=== PATIENT | male | born 1985 | race African-American/Black ===

== ENCOUNTER 2022-01-11 10:30 | Inpatient (IN) | payer MEDICARE, MEDICAID, SELFPAY ==
[2022-01-11] VITALS (7 sets, daily range): BP systolic 121–146; BP diastolic 70–101; PULSE 65–138; RESP 10–22; TEMP 37–38.7; O2SAT 95–97; BMI 26.5
--- NOTE | ~2022-01-11 | XR_ITS ---
EXAMINATION: XR WRIST, LEFT CLINICAL INFORMATION: Pain and swelling COMPARISON: Previous x-ray January 2008 TECHNIQUE: PA, lateral, and oblique views of the left wrist. FINDINGS: The bones and soft tissues are normal. No fracture. Alignment is anatomic with normal joint spaces. No erosions or abnormal soft tissue calcifications. XR/XR wrist LT min 3V IMPRESSION: Normal left wrist.
--- NOTE | ~2022-01-11 | XR_ITS ---
EXAMINATION: XR CHEST CLINICAL INFORMATION: Fever COMPARISON: Previous chest x-ray most recent January 2020 TECHNIQUE: Frontal view of the chest was obtained. FINDINGS: The cardiac and mediastinal contours are stable. There are bilateral infiltrates. There is no pleural effusion or pneumothorax. There are degenerative changes of the shoulders. There is evidence of surgery to the right shoulder. XR/XR chest 1V IMPRESSION: Bilateral infiltrates probably representing pneumonia.
--- NOTE | 2022-01-11 10:40 | ECG_ITS ---
Test Reason : PALPITATIONS Blood Pressure : / mmHG Vent. Rate : 092 BPM Atrial Rate : 092 BPM P-R Int : 138 ms QRS Dur : 094 ms QT Int : 432 ms P-R-T Axes : 066 028 040 degrees QTc Int : 534 ms Normal sinus rhythm Prolonged QT Abnormal ECG When compared with ECG of 03-JAN-2012 22:11, QT has lengthened Referred By: Dawit Bangura Electronically Signed By:ASHA HERNANDEZ
[2022-01-11] MEDS: Haloperidol Lactate 5 MG/ML VIAL 10 MG IM (10:45)
[2022-01-11] MEDS: Midazolam HCl/PF 2 MG/2 ML VIAL 5 MG IM (10:45)
--- NOTE | 2022-01-11 10:52 | ED.GENADULT ---
HPI - General Adult General Chief complaint: General Medical Stated complaint: Psych Madisyn, Ukn Subs Time Seen by Provider: 01/11/22 10:36 Source: EMS and police Mode of arrival: EMS History of Present Illness HPI narrative: This is a 36 years old male with history of substance abuse presented to the emergency department agitated combative, yet arrived the the police and EMS restrained in the stretcher, diaphoretic combative unable to give any history. He was quickly sedated in the ED with the IM midazolam and IM haloperidol for his safety and staff safety. Ambulance picked the patient up in the street where he was agitated Onset (ago): hour(s) (1) Severity: severe Pain Consistency: constant Associated symptoms: diaphoresis Treatments prior to arrival: none Related Data Home Medications Medication Instructions Recorded Confirmed buprenorphine 12 mg-naloxone 3 mg 1 strip sublingual DAILY 01/11/22 01/11/22 sublingual film Allergies Allergy/AdvReac Type Severity Reaction Status Date / Time azithromycin [From ZITHROMAX] Allergy Unknown HIVES Unverified 02/21/20 15:33 amoxicillin [From AUGMENTIN] AdvReac Unknown STOMACH Unverified 02/21/20 15:33 PAIN clavulanic acid AdvReac Unknown STOMACH Unverified 02/21/20 15:33 [From AUGMENTIN] PAIN Review of Systems Review of Systems: Yes Unobtainable due to mental condition and Unobtainable due to mental status PMFSH Past Medical History PMFSH Narrative: substance abuse Social History Social History Use of substances other than those prescribed or required for medical reasons: Unable to respond Advance Directives: No Advance Directives Information Provided: Yes Physical Exam ED Vital Signs: Vital Signs - 24 hr 01/11/22 10:44 01/11/22 11:13 01/11/22 11:28 Temperature 101.6 F H Pulse Rate 124 H 96 Pulse Rate [Monitor] 138 H Respiratory Rate 22 H 20 Blood Pressure 139/86 121/70 Pulse Oximetry 97 96 Oxygen Delivery Method Nasal Cannula Nasal Cannula Oxygen Flow Rate 2 01/11/22 11:56 01/11/22 12:54 01/11/22 12:56 Temperature 98.6 F Pulse Rate 87 77 Pulse Rate [Monitor] Respiratory Rate 14 15 Blood Pressure 128/79 137/83 Pulse Oximetry 96 95 Oxygen Delivery Method Nasal Cannula Nasal Cannula with ETCO2 Room Air Oxygen Flow Rate 2 BMI result Body Mass Index 26.5 Const General: anxious, combative and diaphoretic Nutritional Appearance: well nourished Limitations: altered mental status [facility] Head: Yes normal to inspection General nose exam: Normal external nose present Face and sinus: Yes normal facial exam Mouth: Normal oral and palatal mucosa present Teeth and gingiva: dentition normal Throat: Yes posterior oropharynx normal Neck Neck: Yes normal visual inspection and Yes full ROM Thyroid: Thyroid normal Chest Chest palpation & inspection: normal inspection of the chest Resp Effort & Inspection: normal respiratory effort Auscultation: clear to auscultation bilaterally Cardio Rate: tachycardic GI Inspection: Yes normal to inspection Palpation (GI): Soft to palpation, not firm, nontender and no guarding Auscultation: normal bowel sounds Neuro Other: He is awake combative does not follow commands Course Reevaluation(s) Reevaluation #1: Sleeping confortable,off restrain,toxicology noted (opioid and cocaine),HR down now 88. normotensive,Temp noted but was taken at arrival when he was agitated and diaphoretic Reevaluation #2: awake and alert taking po spoke with Dr Gibson who accept the pt Time: 13:35 Reevaluation #3: better heat rate down to 62 calm and cooperative Medical Decision Making Lab Data Result diagrams: 01/11/22 11:33 01/11/22 11:33 Labs: Lab Results 01/11/22 01/11/22 01/11/22 Range/Units 10:47 11:00 11:16 WBC (4.8-10.8) X10*3/uL RBC (4.60-5.80) X10*6/uL Hgb (14.0-18.0) g/dl Hct (42.0-52.0) % MCV (80.0-98.0) fL MCH (27.0-33.0) pg MCHC (31.0-36.0) g/dl RDW (11.0-16.0) % Plt Count (160-400) X10*3/uL MPV (9.4-12.4) fL Immature Gran % (Auto) (0.0-0.4) % Neut % (Auto) (45-73) % Lymph % (Auto) (20-40) % [place] % (Auto) (2-11) % Eos % (Auto) (0-4) % Baso % (Auto) (0-2) % Lymph # (Auto) (1.2-4.9) X10*3/uL [place] # (Auto) (0.1-1.2) X10*3/uL Eos # (Auto) (0.0-0.4) X10*3/uL Baso # (Auto) (0.0-0.2) X10*3/uL Abs Immat Gran (auto) (0.00-0.03) X10*3/uL Absolute Neuts (auto) (2.0-8.3) x10*3/uL Absolute Nucleated RBC (0.0-0.012) X10*3/uL Nucleated RBC % (auto) (0.0-0.2) /100WBC O2 Saturation 98.0 % ABG pH at Pt Temp 7.33 L (7.35-7.45) ABG pCO2 at Pt Temp 35 (32-45) mmHg ABG pO2 at Pt Temp 136 H (83-108) mmHg ABG HCO3 19 L (22-26) mmol/L ABG Base Excess (Actual) -5.7 mmol/L Sodium (135-145) mmol/L Potassium (3.3-5.1) mmol/L Chloride (96-108) mmol/L Carbon Dioxide (22-29) mmol/L Anion Gap (12-20) BUN (9-16) mg/dL Creatinine (0.5-1.4) mg/dL Estim Creat Clear Calc Estimated GFR Random Glucose (60-115) mg/dL Calcium (8.4-10.2) mg/dL Total Bilirubin (0.0-1.0) mg/dL AST (5-37) U/L ALT (0-40) U/L Alkaline Phosphatase (39-117) U/L Total Creatine Kinase (38-174) U/L Troponin I High Sens (<3.5-35.0) ng/L Total Protein (6.5-8.0) g/dL Albumin (3.5-5.0) g/dL Urine Opiates Screen POSITIVE H (Not Detect) Urine Fentanyl Screen POSITIVE H (Not Detect) Ur Barbiturates Screen Not Detected (Not Detect) Ur Phencyclidine Scrn Not Detected (Not Detect) Ur Amphetamines Screen Not Detected (Not Detect) U Benzodiazepines Scrn Not Detected (Not Detect) Urine Cocaine Screen POSITIVE H (Not Detect) U Marijuana (THC) Screen Not Detected (Not Detect) Ethyl Alcohol Cancelled COVID-19 ([facility]) (Negative) COVID-19 Clin Com 01/11/22 01/11/22 01/11/22 Range/Units 11:33 11:33 11:33 WBC 14.2 H (4.8-10.8) X10*3/uL RBC 4.26 L (4.60-5.80) X10*6/uL Hgb 13.4 L (14.0-18.0) g/dl Hct 36.8 L (42.0-52.0) % MCV 86.4 (80.0-98.0) fL MCH 31.5 (27.0-33.0) pg MCHC 36.4 H (31.0-36.0) g/dl RDW 12.1 (11.0-16.0) % Plt Count 148 L (160-400) X10*3/uL MPV 10.2 (9.4-12.4) fL Immature Gran % (Auto) 0.4 (0.0-0.4) % Neut % (Auto) 81.5 H (45-73) % Lymph % (Auto) 8.7 L (20-40) % [place] % (Auto) 9.2 (2-11) % Eos % (Auto) 0.0 (0-4) % Baso % (Auto) 0.2 (0-2) % Lymph # (Auto) 1.2 (1.2-4.9) X10*3/uL [place] # (Auto) 1.3 H (0.1-1.2) X10*3/uL Eos # (Auto) 0.0 (0.0-0.4) X10*3/uL Baso # (Auto) 0.0 (0.0-0.2) X10*3/uL Abs Immat Gran (auto) 0.05 H (0.00-0.03) X10*3/uL Absolute Neuts (auto) 11.6 H (2.0-8.3) x10*3/uL Absolute Nucleated RBC 0.000 (0.0-0.012) X10*3/uL Nucleated RBC % (auto) 0.0 (0.0-0.2) /100WBC O2 Saturation % ABG pH at Pt Temp (7.35-7.45) ABG pCO2 at Pt Temp (32-45) mmHg ABG pO2 at Pt Temp (83-108) mmHg ABG HCO3 (22-26) mmol/L ABG Base Excess (Actual) mmol/L Sodium 139 (135-145) mmol/L Potassium 3.1 L (3.3-5.1) mmol/L Chloride 105 (96-108) mmol/L Carbon Dioxide 20 L (22-29) mmol/L Anion Gap 17 (12-20) BUN 72 H (9-16) mg/dL Creatinine 2.45 H (0.5-1.4) mg/dL Estim Creat Clear Calc 33.2 Estimated GFR 30 Random Glucose 136 H (60-115) mg/dL Calcium 7.7 L (8.4-10.2) mg/dL Total Bilirubin 1.7 H (0.0-1.0) mg/dL AST 259 H (5-37) U/L ALT 100 H (0-40) U/L Alkaline Phosphatase 65 (39-117) U/L Total Creatine Kinase 28863 H (38-174) U/L Troponin I High Sens 30.5 (<3.5-35.0) ng/L Total Protein 6.0 L (6.5-8.0) g/dL Albumin 3.8 (3.5-5.0) g/dL Urine Opiates Screen (Not Detect) Urine Fentanyl Screen (Not Detect) Ur Barbiturates Screen (Not Detect) Ur Phencyclidine Scrn (Not Detect) Ur Amphetamines Screen (Not Detect) U Benzodiazepines Scrn (Not Detect) Urine Cocaine Screen (Not Detect) U Marijuana (THC) Screen (Not Detect) Ethyl Alcohol < 10 COVID-19 ([facility]) (Negative) COVID-19 Clin Com 01/11/22 Range/Units 14:00 WBC (4.8-10.8) X10*3/uL RBC (4.60-5.80) X10*6/uL Hgb (14.0-18.0) g/dl Hct (42.0-52.0) % MCV (80.0-98.0) fL MCH (27.0-33.0) pg MCHC (31.0-36.0) g/dl RDW (11.0-16.0) % Plt Count (160-400) X10*3/uL MPV (9.4-12.4) fL Immature Gran % (Auto) (0.0-0.4) % Neut % (Auto) (45-73) % Lymph % (Auto) (20-40) % [place] % (Auto) (2-11) % Eos % (Auto) (0-4) % Baso % (Auto) (0-2) % Lymph # (Auto) (1.2-4.9) X10*3/uL [place] # (Auto) (0.1-1.2) X10*3/uL Eos # (Auto) (0.0-0.4) X10*3/uL Baso # (Auto) (0.0-0.2) X10*3/uL Abs Immat Gran (auto) (0.00-0.03) X10*3/uL Absolute Neuts (auto) (2.0-8.3) x10*3/uL Absolute Nucleated RBC (0.0-0.012) X10*3/uL Nucleated RBC % (auto) (0.0-0.2) /100WBC O2 Saturation % ABG pH at Pt Temp (7.35-7.45) ABG pCO2 at Pt Temp (32-45) mmHg ABG pO2 at Pt Temp (83-108) mmHg ABG HCO3 (22-26) mmol/L ABG Base Excess (Actual) mmol/L Sodium (135-145) mmol/L Potassium (3.3-5.1) mmol/L Chloride (96-108) mmol/L Carbon Dioxide (22-29) mmol/L Anion Gap (12-20) BUN (9-16) mg/dL Creatinine (0.5-1.4) mg/dL Estim Creat Clear Calc Estimated GFR Random Glucose (60-115) mg/dL Calcium (8.4-10.2) mg/dL Total Bilirubin (0.0-1.0) mg/dL AST (5-37) U/L ALT (0-40) U/L Alkaline Phosphatase (39-117) U/L Total Creatine Kinase (38-174) U/L Troponin I High Sens (<3.5-35.0) ng/L Total Protein (6.5-8.0) g/dL Albumin (3.5-5.0) g/dL Urine Opiates Screen (Not Detect) Urine Fentanyl Screen (Not Detect) Ur Barbiturates Screen (Not Detect) Ur Phencyclidine Scrn (Not Detect) Ur Amphetamines Screen (Not Detect) U Benzodiazepines Scrn (Not Detect) Urine Cocaine Screen (Not Detect) U Marijuana (THC) Screen (Not Detect) Ethyl Alcohol COVID-19 ([facility]) Negative (Negative) COVID-19 Clin Com See Note Imaging Data Chest x-ray: Radiologist's impression: EXAMINATION: XR CHEST CLINICAL INFORMATION: Fever COMPARISON: Previous chest x-ray most recent January 2020 TECHNIQUE: Frontal view of the chest was obtained. FINDINGS: The cardiac and mediastinal contours are stable. There are bilateral infiltrates. There is no pleural effusion or pneumothorax. There are degenerative changes of the shoulders. There is evidence of surgery to the right shoulder. XR/XR chest 1V IMPRESSION: Bilateral infiltrates probably representing pneumonia. ? ECG Data Pacemaker model: EKG shows a normal sinus rhythm rate 92 no ischemia Critical Care Time Critical Care Time Critical Care Time: Yes Total Critical Care Time: 60 Attestation: Acute renal l failure ,fever ,sedation,rabdomyolisis Discharge Plan Discharge Clinical Impression: Cocaine use disorder, Acute renal failure, Fever, Rhabdomyolysis, Bilateral pulmonary infiltrates on chest x-ray Patient Disposition: Admitted As Inpatient
[2022-01-11] MEDS: 0.9 % Sodium Chloride 1,000 ML 999 ML IVCONT ×3 (11:06→12:48)
[2022-01-11 11:23] LABS: ABG Refer to POC result
[2022-01-11 11:23] LABS: ABG Base Excess -5.7 mmol/L; ABG HCO3 19 mmol/L (22-26); ABG pCO2 35 mmHg (32-45); ABG pH 7.33 (7.35-7.45); ABG pO2 136 mmHg (83-108)
[2022-01-11 11:42] LABS: Amphetamine Screen Urine Not Detected (Not Detect); Barbiturates, Urine Not Detected (Not Detect); Benzodiazepines Screen Urine Not Detected (Not Detect); Cannabinoid Screen Urine Not Detected (Not Detect); Cocaine Screen Urine POSITIVE (Not Detect); Fentanyl, urine POSITIVE (Not Detect); Opiate Screen Urine POSITIVE (Not Detect); Phencyclidine Screen Urine Not Detected (Not Detect)
[2022-01-11 11:42] LABS: Basophils Percent Auto 0.2 % (0-2); Hematocrit 36.8 % (42.0-52.0); Hemoglobin 13.4 g/dl (14.0-18.0); Imm Gran Abs Auto 0.05 X10*3/uL (0.00-0.03); Imm Gran Pct Auto 0.4 % (0.0-0.4); Lymphocytes Absolute Auto 1.2 X10*3/uL (1.2-4.9); Lymphocytes Percent Auto 8.7 % (20-40); Mean Corpuscular HGB Conc 36.4 g/dl (31.0-36.0); Mean Corpuscular Hemoglobin 31.5 pg (27.0-33.0); Mean Corpuscular Volume 86.4 fL (80.0-98.0); Mean Platelet Volume 10.2 fL (9.4-12.4); Monocytes Absolute Auto 1.3 X10*3/uL (0.1-1.2); Monocytes Percent Auto 9.2 % (2-11); Neutrophils Absolute Auto 11.6 x10*3/uL (2.0-8.3); Neutrophils Percent Auto 81.5 % (45-73); Platelet Count 148 X10*3/uL (160-400); Red Blood Count 4.26 X10*6/uL (4.60-5.80); Red Cell Distribution Width 12.1 % (11.0-16.0); White Blood Count 14.2 X10*3/uL (4.8-10.8)
[2022-01-11 11:56] LABS: Alanine Aminotransferase 100 U/L (0-40); Albumin Level 3.8 g/dL (3.5-5.0); Alkaline Phosphatase 65 U/L (39-117); Anion Gap 17 (12-20); Aspartate Amino Transferase 259 U/L (5-37); Bilirubin Total 1.7 mg/dL (0.0-1.0); Blood Urea Nitrogen 72 mg/dL (9-16); Calcium 7.7 mg/dL (8.4-10.2); Carbon Dioxide 20 mmol/L (22-29); Chloride 105 mmol/L (96-108); Creatinine Clr Calc Pharmacy 33.2; Estimated Glomerular Filt Rate 30; Ethanol < 10 mg/dL; Glucose Random 136 mg/dL (60-115); Potassium 3.1 mmol/L (3.3-5.1); Sodium 139 mmol/L (135-145)
[2022-01-11 11:59] LABS: Troponin-I High Sensitivity 30.5 ng/L (<3.5-35.0)
[2022-01-11] MEDS: 0.9 % Sodium Chloride 1,000 ML 300 ML IVCONT (12:49)
--- NOTE | 2022-01-11 13:52 | PHA.MEDREC ---
Pharmacy Consult ? Medication Reconciliation Pharmacy has completed the medication reconciliation. Pt unarousable, only had one recent medication claim for suboxone in claim history filled late December.
--- NOTE | 2022-01-11 14:15 | PM.IMHP ---
History of Present Illness Date of Service: 01/11/22 Chief Complaint: found wandering my police This is a 36-year-old male with a past medical history of polysubstance injection drug use who was found wandering the streets by a police and was brought to [facility]. Currently the patient is slightly sedated and hence unable to provide a meaningful history. History is obtained from the ED physician. Apparently the patient arrived to the ED extremely agitated and combative. He had to be chemically and physically restrained. His workup has seen showed rhabdomyolysis with acute kidney injury. His chest x-ray shows possible pneumonia. He has been given multiple doses of sedatives as well as multiple rounds of intravenous fluid boluses. He is now more calm but still very sleepy. He knows he is in the hospital otherwise does not answer too many questions. Review of Systems Review of Systems: Unable to review systems due to patient's mental status [facility] Cognitive capacity: PMH/PSH/FH/SH unable to obtain due to mental status Pertinent family history: unable to obtain due to mental status Social History Use of substances other than those prescribed or required for medical reasons: Unable to respond Advance Directives: No Advance Directives Information Provided: Yes Meds Allergies Allergy/AdvReac Type Severity Reaction Status Date / Time azithromycin [From ZITHROMAX] Allergy Unknown HIVES Unverified 02/21/20 15:33 amoxicillin [From AUGMENTIN] AdvReac Unknown STOMACH Unverified 02/21/20 15:33 PAIN clavulanic acid AdvReac Unknown STOMACH Unverified 02/21/20 15:33 [From AUGMENTIN] PAIN Active Medications: Current Medications Acetaminophen (Acetaminophen 325 Mg Tablet) 650 mg PO Q6H PRN PRN Reason: Pain, Mild (Pain Scale 1-3) Heparin Sodium (Porcine) (Heparin Sodium,Porcine 5,000 Unit/Ml Vial) 5,000 unit SUBCUT Q12H [facility] Sodium Chloride (Ns) 1,000 mls @ 300 mls/hr IVCONT .Q3H20M JD Last Admin: 01/11/22 12:49 Dose: 300 mls/hr Ondansetron HCl (Ondansetron Hcl 4 Mg/2 Ml Vial) 4 mg IVPUSH Q8H PRN PRN Reason: Nausea and Vomiting Sodium Chloride (0.9 % Sodium Chloride Flush 3 Ml Syringe) 3 ml IVFLUSH QSHIFT [facility] Home Medications Medication Instructions Recorded Confirmed Last Taken Type buprenorphine 12 mg-naloxone 3 mg 1 strip sublingual DAILY 01/11/22 01/11/22 Unknown History sublingual film Physical Exam Vital Signs and Narrative: Vital Signs: Last Vital Signs Temp 98.6 F 01/11/22 12:56 Pulse 77 01/11/22 12:54 Resp 15 01/11/22 12:54 BP 137/83 01/11/22 12:54 Pulse Ox 95 01/11/22 12:54 O2 Del Method 01/11/22 12:54 O2 Flow Rate 2 01/11/22 11:56 Oxygen Flow Rate 2 01/11/22 10:44 BMI result Body Mass Index 26.5 Const: Other: Constitutional - Unkemp; calm, keeps eyes closed but does open to verbal stimuli Eyes - PERRLA, EOMI Cardiovascular - S1S2, RRR, No edema Respiratory - Diffuse rhonchi bilaterally Gastrointestinal - NT / ND; +BS; No rebound or guarding - No CVA tenderness Extremities - no calf tenderness bilaterally, no swelling Musculoskeletal - Normal inspection, normal ROM Skin - Warm/Dry Neurological - Oriented to self and time, otherwise disoriented; no focal exam; following simple commands but quickly falls asleep Results Labs CBC and Chem 7: 01/11/22 11:33 01/11/22 11:33 Labs: Laboratory Results - last 24 hr 01/11/22 01/11/22 01/11/22 10:47 11:00 11:16 MCV MCH MCHC RDW Plt Count MPV Immature Gran % (Auto) Neut % (Auto) Lymph % (Auto) [place] % (Auto) Eos % (Auto) Baso % (Auto) Lymph # (Auto) [place] # (Auto) Eos # (Auto) Baso # (Auto) Abs Immat Gran (auto) Absolute Neuts (auto) Absolute Nucleated RBC Nucleated RBC % (auto) O2 Saturation 98.0 ABG pH at Pt Temp 7.33 L ABG pCO2 at Pt Temp 35 ABG pO2 at Pt Temp 136 H ABG HCO3 19 L ABG Base Excess (Actual) -5.7 Anion Gap Estim Creat Clear Calc Estimated GFR Random Glucose Calcium Total Bilirubin AST ALT Alkaline Phosphatase Total Creatine Kinase Total Protein Albumin Urine Opiates Screen POSITIVE H Urine Fentanyl Screen POSITIVE H Ur Barbiturates Screen Not Detected Ur Phencyclidine Scrn Not Detected Ur Amphetamines Screen Not Detected U Benzodiazepines Scrn Not Detected Urine Cocaine Screen POSITIVE H U Marijuana (THC) Screen Not Detected Ethyl Alcohol Cancelled 01/11/22 01/11/22 11:33 11:33 MCV 86.4 MCH 31.5 MCHC 36.4 H RDW 12.1 Plt Count 148 L MPV 10.2 Immature Gran % (Auto) 0.4 Neut % (Auto) 81.5 H Lymph % (Auto) 8.7 L [place] % (Auto) 9.2 Eos % (Auto) 0.0 Baso % (Auto) 0.2 Lymph # (Auto) 1.2 [place] # (Auto) 1.3 H Eos # (Auto) 0.0 Baso # (Auto) 0.0 Abs Immat Gran (auto) 0.05 H Absolute Neuts (auto) 11.6 H Absolute Nucleated RBC 0.000 Nucleated RBC % (auto) 0.0 O2 Saturation ABG pH at Pt Temp ABG pCO2 at Pt Temp ABG pO2 at Pt Temp ABG HCO3 ABG Base Excess (Actual) Anion Gap 17 Estim Creat Clear Calc 33.2 Estimated GFR 30 Random Glucose 136 H Calcium 7.7 L Total Bilirubin 1.7 H AST 259 H ALT 100 H Alkaline Phosphatase 65 Total Creatine Kinase 45057 H Total Protein 6.0 L Albumin 3.8 Urine Opiates Screen Urine Fentanyl Screen Ur Barbiturates Screen Ur Phencyclidine Scrn Ur Amphetamines Screen U Benzodiazepines Scrn Urine Cocaine Screen U Marijuana (THC) Screen Ethyl Alcohol < 10 Imaging Radiologist's Impressions: Impressions Chest X-Ray 01/11/22 12:35 IMPRESSION: Bilateral infiltrates probably representing pneumonia. Assessment and Plan (1) Acute renal failure: Status: Acute (2) Fever: Status: Acute (3) Rhabdomyolysis: Status: Acute Plan This is a 36 year old M who was found wandering the streets and brought to [facility] ED for evaluation. His work up reveals BEBO with rhabdo. He was febrile upon arrival as well. He will be admitted for further work up. 1. BEBO due to rhabdomyolysis aggressive fluid resuscitation i/o repeat BMP + CPK tomorrow 2. Toxic/Metabolic encephalopathy combination of #1 + opiates / cocaine improving continue to monitor 3. Pneumonia rocehpin given in the ED, will continue given history of IVDU -- will need to cover for MRSA -- will add vancomcyin, pharmacy to help with dosing given BEBO follow up cultures 4. Abnormal LFTs possibly related to infection, although [facility] records indicated he has hep C trend Presumed Full Code DVT pptx, subcut heparin In light of the patients significant rhabdo + bebo + suspected pneumonia + encephalopathy which will require aggressive hydration, IV antibiotics, frequent neurochecks -- I anticipate a medically necessary inpatient hospitalization which is likely to span at least 2 midnights. This cannto be completed in a less acute setting. Quality Stroke Does the patient have a stroke diagnosis?: No VTE Prior VTE?: No VTE Risk Level:: Medical - moderate - high VTE Device Contraindication: Treatment Not Tolerated VTE Drug Contraindication: N/A - Med Ordered
[2022-01-11 14:21] LABS: COVID-19 Test Negative (Negative); IDNOW Serial# 9DB6401D
--- NOTE | 2022-01-11 14:23 | PHA.PROG ---
Admission Date/Time: January 11, 2022 14:08 Indication: BACTEREMIA Weight in k.039 kg Adjusted body weight in K.356 [place] body weight in Kg: Obesity Dosing Indication % IBW: Serum Creatinine - Last 168 Hours 01/11/22 11:33 Creatinine 2.45 H Estimated CrCl and GFR - Last 168 Hours 01/11/22 11:33 Estim Creat Clear Calc 33.2 Estimated GFR 30 Vancomycin Loading Dose: 1500MG Current Vancomycin Dosing Regimen: 1000MG Q24H Vancomycin Monitoring using AUC goal of 400 - 600 range with trough as surrogate marker: 515;16.3 Date and Time for next Vancomycin Level to be drawn: RANDOM 01/13 @1300 Pharmacist Comments on Vancomycin Plan: 22MG/KG LOADING DOSE RANDOM AFTER 2 DOSES RENAL FUNCTION SHOULD IMPROVE, PATIENT IN BEBO CONSIDER INCREASING FREQUENCY SCR NORMALIZES RANDOM FOR SAFETY Vancomycin dosing will take advantage of [employer] as a clinical decision support tool that uses Bayesian modeling to calculate individual patient's pharmacokinetic parameters and forecast the patient's drug concentration time course with the target goal AUC 24 range of 400 - 600 mg/L/hr.
[2022-01-11] MEDS: cefTRIAXone sodium 1 GM in 0.9 % Sodium Chloride 50 ML IV (15:25)
[2022-01-11] MEDS: Heparin Sodium,Porcine 5,000 UNIT/ML VIAL 5000 UNIT SUBCUT (15:30)
[2022-01-11] MEDS: Lactated Ringers 1,000 ML 150 ML IVCONT (17:32)
[2022-01-11] MEDS: vancomycin HCL 1,500 MG in 0.9 % Sodium Chloride 500 ML 333.33 MG IV (17:32)
--- NOTE | 2022-01-11 20:59 | MHC.CM.PN ---
CM attempted to meet with admitted patient with bed assignment pending, but pt sleeping. Pt had been chemically/physically restrained. Pt will need to be interviewed for d/c planning when awake and cooperative. CM to follow for d/c needs.
[2022-01-11 21:53] LABS: Anion Gap 12 (12-20); Blood Urea Nitrogen 48 mg/dL (9-16); Calcium 7.3 mg/dL (8.4-10.2); Carbon Dioxide 22 mmol/L (22-29); Chloride 111 mmol/L (96-108); Creatinine Clr Calc Pharmacy 66.1; Estimated Glomerular Filt Rate > 60; Glucose Random 108 mg/dL (60-115); Sodium 141 mmol/L (135-145)
[2022-01-12] VITALS (8 sets, daily range): BP systolic 100–134; BP diastolic 56–73; PULSE 49–82; RESP 13–18; TEMP 36.4–37.1; O2SAT 93–99; BMI 26.5
[2022-01-12 00:12] LABS: Appearance Urine CLEAR; Color Urine YELLOW; Glucose Urine UA NEG (NEG); Leukocyte Esterase Urine NEG (NEG); Nitrite Urine NEG (NEG); Specific Gravity - Urine >= 1.030 (1.005-1.025); UACC Culture Trigger NO; Urine Blood 3+ (NEG); Urine Ketones 5 MG/DL (NEG); Urine Protein 2+ MG/DL (NEG-TRACE)
[2022-01-12 00:17] LABS: Mucus Urine 1+ /LPF; RBC Urine 0-2 /HPF (0); Squamous Epithelial Cell Urine TRACE /LPF
[2022-01-12 00:18] LABS: Amorphous Sediment Urine 2+ /LPF; Granular Casts Urine 0-2 /LPF; Hyaline Casts Urine 0-2 /LPF
[2022-01-12] MEDS: 0.9 % Sodium Chloride Flush 3 ML SYRINGE IVFLUSH (03:24)
[2022-01-12] MEDS: Heparin Sodium,Porcine 5,000 UNIT/ML VIAL 5000 UNIT SUBCUT ×2 (03:26→14:43)
[2022-01-12] MEDS: Lactated Ringers 1,000 ML 150 ML IVCONT ×3 (04:18→17:31)
[2022-01-12 05:00] LABS: Hematocrit 36.1 % (42.0-52.0); Hemoglobin 12.6 g/dl (14.0-18.0); Mean Corpuscular HGB Conc 34.9 g/dl (31.0-36.0); Mean Corpuscular Hemoglobin 31.3 pg (27.0-33.0); Mean Corpuscular Volume 89.8 fL (80.0-98.0); Mean Platelet Volume 10.2 fL (9.4-12.4); Platelet Count 141 X10*3/uL (160-400); Red Blood Count 4.02 X10*6/uL (4.60-5.80); Red Cell Distribution Width 12.5 % (11.0-16.0); White Blood Count 11.5 X10*3/uL (4.8-10.8)
[2022-01-12 05:15] LABS: Anion Gap 13 (12-20); Blood Urea Nitrogen 41 mg/dL (9-16); Calcium 7.7 mg/dL (8.4-10.2); Carbon Dioxide 21 mmol/L (22-29); Chloride 113 mmol/L (96-108); Creatinine Clr Calc Pharmacy 91.4; Estimated Glomerular Filt Rate > 60; Glucose Random 87 mg/dL (60-115); Potassium 3.9 mmol/L (3.3-5.1); Sodium 143 mmol/L (135-145)
--- NOTE | 2022-01-12 07:39 | HE.PHANOTE ---
Vancomycin Dosing Addendum Patient was in BEBO yesterday. Scr is significantly down at 0.89 from 2.45. Level to be drawn on 01/13 @1300. Keep current regimen of 1000mg Q24H. Predicted AUC 478 mg/L/hr.
--- NOTE | 2022-01-12 08:22 | PC.NURSE ---
Pt sleeping at this time. No signs of distress noted. Fluids running as per MAR orders. Call bui within reach, will continue to monitor.
[2022-01-12 09:09] LABS: Procalcitonin 3.03 ng/mL
--- NOTE | 2022-01-12 09:31 | ED.GENADULT ---
HPI - General Adult General Chief complaint: General Medical Stated complaint: Psych Madisyn, Ukn Subs Time Seen by Provider: 01/11/22 10:36 Source: EMS and police Mode of arrival: EMS History of Present Illness Associated symptoms: diaphoresis Treatments prior to arrival: none Related Data Home Medications Medication Instructions Recorded Confirmed buprenorphine 12 mg-naloxone 3 mg 1 strip sublingual DAILY 01/11/22 01/11/22 sublingual film Allergies Allergy/AdvReac Type Severity Reaction Status Date / Time azithromycin [From ZITHROMAX] Allergy Unknown HIVES Unverified 02/21/20 15:33 amoxicillin [From AUGMENTIN] AdvReac Unknown STOMACH Unverified 02/21/20 15:33 PAIN clavulanic acid AdvReac Unknown STOMACH Unverified 02/21/20 15:33 [From AUGMENTIN] PAIN PMFSH Social History Social History Use of substances other than those prescribed or required for medical reasons: Unable to respond Advance Directives: No Advance Directives Information Provided: Yes Physical Exam ED Vital Signs: Vital Signs - 24 hr 01/11/22 10:44 01/11/22 11:13 01/11/22 11:28 Temperature 101.6 F H Pulse Rate 124 H 96 Pulse Rate [Monitor] 138 H Respiratory Rate 22 H 20 Blood Pressure 139/86 121/70 Pulse Oximetry 97 96 Oxygen Delivery Method Nasal Cannula Nasal Cannula Oxygen Flow Rate 2 01/11/22 11:56 01/11/22 12:54 01/11/22 12:56 Temperature 98.6 F Pulse Rate 87 77 Pulse Rate [Monitor] Respiratory Rate 14 15 Blood Pressure 128/79 137/83 Pulse Oximetry 96 95 Oxygen Delivery Method Nasal Cannula Nasal Cannula with ETCO2 Room Air Oxygen Flow Rate 2 BMI result Body Mass Index 26.5 Medical Decision Making Lab Data Result diagrams: 01/12/22 04:18 01/12/22 04:18 Labs: Lab Results 01/11/22 01/11/22 01/11/22 Range/Units 10:47 11:00 11:16 WBC (4.8-10.8) X10*3/uL RBC (4.60-5.80) X10*6/uL Hgb (14.0-18.0) g/dl Hct (42.0-52.0) % MCV (80.0-98.0) fL MCH (27.0-33.0) pg MCHC (31.0-36.0) g/dl RDW (11.0-16.0) % Plt Count (160-400) X10*3/uL MPV (9.4-12.4) fL Immature Gran % (Auto) (0.0-0.4) % Neut % (Auto) (45-73) % Lymph % (Auto) (20-40) % [place] % (Auto) (2-11) % Eos % (Auto) (0-4) % Baso % (Auto) (0-2) % Lymph # (Auto) (1.2-4.9) X10*3/uL [place] # (Auto) (0.1-1.2) X10*3/uL Eos # (Auto) (0.0-0.4) X10*3/uL Baso # (Auto) (0.0-0.2) X10*3/uL Abs Immat Gran (auto) (0.00-0.03) X10*3/uL Absolute Neuts (auto) (2.0-8.3) x10*3/uL Absolute Nucleated RBC (0.0-0.012) X10*3/uL Nucleated RBC % (auto) (0.0-0.2) /100WBC O2 Saturation 98.0 % ABG pH at Pt Temp 7.33 L (7.35-7.45) ABG pCO2 at Pt Temp 35 (32-45) mmHg ABG pO2 at Pt Temp 136 H (83-108) mmHg ABG HCO3 19 L (22-26) mmol/L ABG Base Excess (Actual) -5.7 mmol/L Sodium (135-145) mmol/L Potassium (3.3-5.1) mmol/L Chloride (96-108) mmol/L Carbon Dioxide (22-29) mmol/L Anion Gap (12-20) BUN (9-16) mg/dL Creatinine (0.5-1.4) mg/dL Estim Creat Clear Calc Estimated GFR Random Glucose (60-115) mg/dL Calcium (8.4-10.2) mg/dL Total Bilirubin (0.0-1.0) mg/dL AST (5-37) U/L ALT (0-40) U/L Alkaline Phosphatase (39-117) U/L Total Creatine Kinase (38-174) U/L Troponin I High Sens (<3.5-35.0) ng/L Total Protein (6.5-8.0) g/dL Albumin (3.5-5.0) g/dL Urine Opiates Screen POSITIVE H (Not Detect) Urine Fentanyl Screen POSITIVE H (Not Detect) Ur Barbiturates Screen Not Detected (Not Detect) Ur Phencyclidine Scrn Not Detected (Not Detect) Ur Amphetamines Screen Not Detected (Not Detect) U Benzodiazepines Scrn Not Detected (Not Detect) Urine Cocaine Screen POSITIVE H (Not Detect) U Marijuana (THC) Screen Not Detected (Not Detect) Ethyl Alcohol Cancelled COVID-19 ([facility]) (Negative) COVID-19 Clin Com 01/11/22 01/11/22 01/11/22 Range/Units 11:33 11:33 11:33 WBC 14.2 H (4.8-10.8) X10*3/uL RBC 4.26 L (4.60-5.80) X10*6/uL Hgb 13.4 L (14.0-18.0) g/dl Hct 36.8 L (42.0-52.0) % MCV 86.4 (80.0-98.0) fL MCH 31.5 (27.0-33.0) pg MCHC 36.4 H (31.0-36.0) g/dl RDW 12.1 (11.0-16.0) % Plt Count 148 L (160-400) X10*3/uL MPV 10.2 (9.4-12.4) fL Immature Gran % (Auto) 0.4 (0.0-0.4) % Neut % (Auto) 81.5 H (45-73) % Lymph % (Auto) 8.7 L (20-40) % [place] % (Auto) 9.2 (2-11) % Eos % (Auto) 0.0 (0-4) % Baso % (Auto) 0.2 (0-2) % Lymph # (Auto) 1.2 (1.2-4.9) X10*3/uL [place] # (Auto) 1.3 H (0.1-1.2) X10*3/uL Eos # (Auto) 0.0 (0.0-0.4) X10*3/uL Baso # (Auto) 0.0 (0.0-0.2) X10*3/uL Abs Immat Gran (auto) 0.05 H (0.00-0.03) X10*3/uL Absolute Neuts (auto) 11.6 H (2.0-8.3) x10*3/uL Absolute Nucleated RBC 0.000 (0.0-0.012) X10*3/uL Nucleated RBC % (auto) 0.0 (0.0-0.2) /100WBC O2 Saturation % ABG pH at Pt Temp (7.35-7.45) ABG pCO2 at Pt Temp (32-45) mmHg ABG pO2 at Pt Temp (83-108) mmHg ABG HCO3 (22-26) mmol/L ABG Base Excess (Actual) mmol/L Sodium 139 (135-145) mmol/L Potassium 3.1 L (3.3-5.1) mmol/L Chloride 105 (96-108) mmol/L Carbon Dioxide 20 L (22-29) mmol/L Anion Gap 17 (12-20) BUN 72 H (9-16) mg/dL Creatinine 2.45 H (0.5-1.4) mg/dL Estim Creat Clear Calc 33.2 Estimated GFR 30 Random Glucose 136 H (60-115) mg/dL Calcium 7.7 L (8.4-10.2) mg/dL Total Bilirubin 1.7 H (0.0-1.0) mg/dL AST 259 H (5-37) U/L ALT 100 H (0-40) U/L Alkaline Phosphatase 65 (39-117) U/L Total Creatine Kinase 75838 H (38-174) U/L Troponin I High Sens 30.5 (<3.5-35.0) ng/L Total Protein 6.0 L (6.5-8.0) g/dL Albumin 3.8 (3.5-5.0) g/dL Urine Opiates Screen (Not Detect) Urine Fentanyl Screen (Not Detect) Ur Barbiturates Screen (Not Detect) Ur Phencyclidine Scrn (Not Detect) Ur Amphetamines Screen (Not Detect) U Benzodiazepines Scrn (Not Detect) Urine Cocaine Screen (Not Detect) U Marijuana (THC) Screen (Not Detect) Ethyl Alcohol < 10 COVID-19 ([facility]) (Negative) COVID-19 Clin Com 01/11/22 Range/Units 14:00 WBC (4.8-10.8) X10*3/uL RBC (4.60-5.80) X10*6/uL Hgb (14.0-18.0) g/dl Hct (42.0-52.0) % MCV (80.0-98.0) fL MCH (27.0-33.0) pg MCHC (31.0-36.0) g/dl RDW (11.0-16.0) % Plt Count (160-400) X10*3/uL MPV (9.4-12.4) fL Immature Gran % (Auto) (0.0-0.4) % Neut % (Auto) (45-73) % Lymph % (Auto) (20-40) % [place] % (Auto) (2-11) % Eos % (Auto) (0-4) % Baso % (Auto) (0-2) % Lymph # (Auto) (1.2-4.9) X10*3/uL [place] # (Auto) (0.1-1.2) X10*3/uL Eos # (Auto) (0.0-0.4) X10*3/uL Baso # (Auto) (0.0-0.2) X10*3/uL Abs Immat Gran (auto) (0.00-0.03) X10*3/uL Absolute Neuts (auto) (2.0-8.3) x10*3/uL Absolute Nucleated RBC (0.0-0.012) X10*3/uL Nucleated RBC % (auto) (0.0-0.2) /100WBC O2 Saturation % ABG pH at Pt Temp (7.35-7.45) ABG pCO2 at Pt Temp (32-45) mmHg ABG pO2 at Pt Temp (83-108) mmHg ABG HCO3 (22-26) mmol/L ABG Base Excess (Actual) mmol/L Sodium (135-145) mmol/L Potassium (3.3-5.1) mmol/L Chloride (96-108) mmol/L Carbon Dioxide (22-29) mmol/L Anion Gap (12-20) BUN (9-16) mg/dL Creatinine (0.5-1.4) mg/dL Estim Creat Clear Calc Estimated GFR Random Glucose (60-115) mg/dL Calcium (8.4-10.2) mg/dL Total Bilirubin (0.0-1.0) mg/dL AST (5-37) U/L ALT (0-40) U/L Alkaline Phosphatase (39-117) U/L Total Creatine Kinase (38-174) U/L Troponin I High Sens (<3.5-35.0) ng/L Total Protein (6.5-8.0) g/dL Albumin (3.5-5.0) g/dL Urine Opiates Screen (Not Detect) Urine Fentanyl Screen (Not Detect) Ur Barbiturates Screen (Not Detect) Ur Phencyclidine Scrn (Not Detect) Ur Amphetamines Screen (Not Detect) U Benzodiazepines Scrn (Not Detect) Urine Cocaine Screen (Not Detect) U Marijuana (THC) Screen (Not Detect) Ethyl Alcohol COVID-19 ([facility]) Negative (Negative) COVID-19 Clin Com See Note Discharge Plan Discharge Clinical Impression: Cocaine use disorder, Acute renal failure, Fever, Rhabdomyolysis, Bilateral pulmonary infiltrates on chest x-ray Patient Disposition: Admitted As Inpatient
--- NOTE | 2022-01-12 09:39 | PC.NURSE ---
patient moved from ED Bed 10 to ED Overflow Bed 3. Continuous monitor. Sinus bradycardia 40s-50s at this time. Respirations even/unlabored. Alert/oriented/responsive. Was able to move himself from ED stretcher to hospital bed with minimal difficulty. LR continues at 150 ml/hour.
--- NOTE | 2022-01-12 09:44 | MHC.RECOVRN ---
Briefly met with pt to discuss Suboxone. Pt sleeping, arouses to voice. Per [facility], pt received 28 day supply of Suboxone 12/3 mg films. Pt reports last took on 01/11 and takes it daily. Pt requesting dose now. Rena Mayo APRN, notified.
--- NOTE | 2022-01-12 10:02 | MHC.CM.PN ---
PATIENT IS FULLY INDEPENDENT HIS MARGARITA IS BEDSIDE AND PATIENT GIVES PERMISSION FOR THIS [employer] DRIVER HELPER TO SPEAK WITH HER CONTACT NUMBER FOR MARGARITA IS [phone] HE OCCASIONALLY RELIES ON A CANE NO VNA SERVICES HE IS PRESCRIBED SUBOX[employer] BUT THIS [employer] DRIVER HELPER DID NOT GATHER WHERE FROM. PCP IS REPORTED TO BE DR MUNGUIA IN [place] ([facility]) IMM 01/12 IN CHART NO HCP ON FILE BUT PATIENT WILL CONSIDER ADDING ONE WHILE HERE.
[2022-01-12] MEDS: Buprenorphine/Naloxone 12/3 mg FILM 1 FILM SUBLINGUAL ×2 (10:04→11:25)
--- NOTE | 2022-01-12 11:31 | PC.NURSE ---
Please contact Brianna Lake at [phone]. Requested to designate Brianna as [facility]'s primary salesperson men's hats. Registration staff aware.
--- NOTE | 2022-01-12 12:11 | PC.NURSE ---
report obtained from logan antonio currently sleeping, pastry cook apprentice intact-sinus/sinus bert, ivf running per order, call bui within reach, will continue to monitor.
--- NOTE | 2022-01-12 12:38 | HO.WOUNDCONS ---
History of Present Illness Data of Consult Service Date: 01/12/22 Requesting physician: Keagan Ceballos Primary Care Provider: Unknown Physician HPI Reason for consult: foot wound [id number]: 36-year-old male presented to [facility] with EMS while combative. Had tachycardia and dehydration, treated for these conditions and no resting comfortably in the bed. Hospital admission is proposed for bilateral pulmonary infiltrates. He is assessed in ED overflow, room 3. I do not see any documented evaluation of the feet but we are asked to assess foot wound from wound care perspective. The patient denies history of diabetes. Unsure if he has had a thermal in counter such as bare feet to the hot pavement. No chronic pain reported in the feet. Footwear history also not entirely clear. Patient answers questions then falls back to sleep. Review of Systems Review of Systems: No shortness of breath is reported. Yes Unobtainable due to mental status PMFSH Social History Use of substances other than those prescribed or required for medical reasons: Unable to respond Advance Directives: No Advance Directives Information Provided: Yes service: No Current occupational status: unemployed Meds Allergies Allergy/AdvReac Type Severity Reaction Status Date / Time azithromycin [From ZITHROMAX] Allergy Unknown HIVES Verified 01/12/22 09:43 amoxicillin [From AUGMENTIN] AdvReac Unknown STOMACH Verified 01/12/22 09:43 PAIN clavulanic acid AdvReac Unknown STOMACH Verified 01/12/22 09:43 [From AUGMENTIN] PAIN Active Medications: Current Medications Acetaminophen (Acetaminophen 325 Mg Tablet) 650 mg PO Q6H PRN PRN Reason: Pain, Mild (Pain Scale 1-3) Buprenorphine/Naloxone (Buprenorphine/Naloxone 12/3 Mg Film) 1 film SUBLINGUAL DAILY JD Last Admin: 01/12/22 10:04 Dose: 1 film Heparin Sodium (Porcine) (Heparin Sodium,Porcine 5,000 Unit/Ml Vial) 5,000 unit SUBCUT Q12H JD Last Admin: 01/12/22 03:26 Dose: 5,000 unit Lactated Ringer's (Lr) 1,000 mls @ 150 mls/hr IVCONT .Q6H40M JD Last Admin: 01/12/22 11:26 Dose: 150 mls/hr Vancomycin HCl 1,000 mg/ (Sodium Chloride) 270 mls @ 270 mls/hr IV Q24H [facility] Ceftriaxone Sodium 1 gm/ (Sodium Chloride) 50 mls @ 100 mls/hr IV Q24H [facility] Ondansetron HCl (Ondansetron Hcl 4 Mg/2 Ml Vial) 4 mg IVPUSH Q8H PRN PRN Reason: Nausea and Vomiting Pharmacy Consult (Consult Rx Vancomycin Dosing) 1 each MISCELLANE DAILY PRN PRN Reason: Consult order Sodium Chloride (0.9 % Sodium Chloride Flush 3 Ml Syringe) 3 ml IVFLUSH QSHIFT [facility] Last Admin: 01/12/22 07:50 Dose: Not Given Home Medications Medication Instructions Recorded Confirmed Last Taken Type buprenorphine 12 mg-naloxone 3 mg 1 strip sublingual DAILY 01/11/22 01/11/22 Unknown History sublingual film Physical Exam Vital Signs and Narrative: Vital Signs: Last Vital Signs Temp 97.5 F 01/12/22 10:22 Pulse 49 L 01/12/22 10:22 Resp 16 01/12/22 10:22 BP 117/72 01/12/22 10:22 Pulse Ox 99 01/12/22 10:22 O2 Del Method 01/12/22 10:22 O2 Flow Rate 2 01/12/22 10:22 Oxygen Flow Rate 2 01/11/22 10:44 BMI result Body Mass Index 26.5 Sleeping but awakens briefly to answer questions. No edema in the bilateral lower extremities. Dorsalis pedis and posterior tibial pulses are bounding in both feet. There are no open wounds of the feet. There is no ulceration to suggest chronic infection. There is mild tenderness over the right calcaneus. Scant change in dermis to suggest callus is seen without fluctuance or blistering. Left calcaneus shows darkened dermis/callus with scant fluctuance, nontender. Similar change on the plantar aspect of the great toe is identified. No redness or bullous type appearance to suggest normal zarco. Chronic friction shear suspected his primary source. No evidence of infection by way of redness, streaking, warmth or odor or drainage. Results Labs CBC and Chem 7: 01/12/22 04:18 01/12/22 04:18 Labs: Laboratory Results - last 24 hr 01/11/22 01/11/22 01/12/22 14:00 21:27 00:04 MCV MCH MCHC RDW Plt Count MPV Absolute Nucleated RBC Nucleated RBC % (auto) Anion Gap 12 Estim Creat Clear Calc 66.1 Estimated GFR > 60 Random Glucose 108 Calcium 7.3 L Total Creatine Kinase Procalcitonin Urine Color YELLOW Urine Appearance CLEAR Urine pH 6.0 Ur Specific [place] >= 1.030 H Urine Protein 2+ H Urine Glucose (UA) NEG Urine Ketones 5 Urine Blood 3+ H Urine Nitrite NEG Ur Leukocyte Esterase NEG Urine RBC 0-2 Urine WBC 1-4 Ur Squamous Epith Cells TRACE Amorphous Sediment 2+ Urine Bacteria NONE Hyaline Casts 0-2 Granular Casts 0-2 Urine Mucus 1+ COVID-19 ([facility]) Negative COVID-19 Clin Com See Note 01/12/22 01/12/22 01/12/22 04:18 04:18 04:18 MCV 89.8 MCH 31.3 MCHC 34.9 RDW 12.5 Plt Count 141 L MPV 10.2 Absolute Nucleated RBC 0.000 Nucleated RBC % (auto) 0.0 Anion Gap 13 Estim Creat Clear Calc 91.4 Estimated GFR > 60 Random Glucose 87 Calcium 7.7 L Total Creatine Kinase 78595 H Procalcitonin 3.03 Urine Color Urine Appearance Urine pH Ur Specific [place] Urine Protein Urine Glucose (UA) Urine Ketones Urine Blood Urine Nitrite Ur Leukocyte Esterase Urine RBC Urine WBC Ur Squamous Epith Cells Amorphous Sediment Urine Bacteria Hyaline Casts Granular Casts Urine Mucus COVID-19 ([facility]) COVID-19 Clin Com Imaging Radiologist's Impressions: Impressions Chest X-Ray 01/11/22 12:35 IMPRESSION: Bilateral infiltrates probably representing pneumonia. Assessment and Plan (1) Rhabdomyolysis: Status: Acute Plan 36-year-old male without self reported history of diabetes, hospitalized for tachycardia and dehydration with pulmonary infiltrates and plantar foot callus sans blister, not associated with ulceration. Further workup deferred to hospitalist. No signs of infection. Supportive care is appropriate. Consider Betadine paint and outpatient podiatry follow up if desired by the patient. Proper footwear can reduce risk of progression to ulceration.
--- NOTE | 2022-01-12 13:15 | MHC.RECOVRN ---
After Suboxone administration around 10AM, pt began experiencing withdrawal symptoms. T/w met with pt, partner also at bedside. Pt extremely restless, agitated, diaphoretic. Pt reports last Suboxone was not 01/11 and was actually on 01/07. T/w educated pt regarding precipitated withdrawal and options to address symptoms. Pt agreeable to another dose of Suboxone. Pt received 12/3 mg at 11:25AM with positive effect. Pt reports using heroin, not a lot, just enough to come down daily since 01/07 as well as cocaine, IV, daily. Prior to this, pt had been in recovery x 2 years. Pt is unable to identify trigger to recurrence. Pt now resting comfortably. Discussed with provider as well as Rena Mayo APRN. Will continue to follow.
--- NOTE | 2022-01-12 14:35 | HO.PM.IMPN ---
Subjective Subjective Date of Service: 01/12/22 Interval History: shaky, withdrawing coughing Review of Systems Review of Systems: Yes all other systems are reviewed and are negative Physical Exam Vital Signs: Vital Signs: Last Vital Signs Temp 98.5 F 01/12/22 14:00 Pulse 57 01/12/22 14:00 Resp 14 01/12/22 14:00 BP 104/64 01/12/22 14:00 Pulse Ox 94 01/12/22 14:00 O2 Del Method 01/12/22 14:00 O2 Flow Rate 2 01/12/22 10:22 Oxygen Flow Rate 2 01/11/22 10:44 BMI result Body Mass Index 26.5 Gen: disheveled, anxious, agitated HEENT: sclera anicteric, moist mucus membranes Neck: supple Lungs: bilateral inspiratory crackles Heart: regular rate and rhythm, no murmurs Abd: soft, non-tender, non-distended Ext: no edema Skin: warm/well-perfused, multiple calluses on feet Neuro: alert and oriented x3, no focal findings Psych: appropriate affect Objective Data Active Medications Acetaminophen (Acetaminophen 325 Mg Tablet) 650 mg PO Q6H PRN PRN Reason: Pain, Mild (Pain Scale 1-3) Buprenorphine/Naloxone (Buprenorphine/Naloxone 12/3 Mg Film) 1 film SUBLINGUAL DAILY [facility] Last Admin: 01/12/22 10:04 Dose: 1 film Documented By: JULIA Heparin Sodium (Porcine) (Heparin Sodium,Porcine 5,000 Unit/Ml Vial) 5,000 unit SUBCUT Q12H [facility] Last Admin: 01/12/22 03:26 Dose: 5,000 unit Documented By: PAL Lactated Ringer's (Lr) 1,000 mls @ 150 mls/hr IVCONT .Q6H40M [facility] Last Admin: 01/12/22 11:26 Dose: 150 mls/hr Documented By: JULIA Vancomycin HCl 1,000 mg/ (Sodium Chloride) 270 mls @ 270 mls/hr IV Q24H [facility] Ceftriaxone Sodium 1 gm/ (Sodium Chloride) 50 mls @ 100 mls/hr IV Q24H [facility] Ondansetron HCl (Ondansetron Hcl 4 Mg/2 Ml Vial) 4 mg IVPUSH Q8H PRN PRN Reason: Nausea and Vomiting Pharmacy Consult (Consult Rx Vancomycin Dosing) 1 each MISCELLANE DAILY PRN PRN Reason: Consult order Sodium Chloride (0.9 % Sodium Chloride Flush 3 Ml Syringe) 3 ml IVFLUSH QSHIFT [facility] Last Admin: 01/12/22 07:50 Dose: Not Given Documented By: МАРИНА Non-Admin Reason: IV Running Labs CBC & Chem 7: 01/12/22 04:18 01/12/22 04:18 Labs: Laboratory Results - last 24 hr 01/11/22 01/12/22 01/12/22 21:27 00:04 04:18 MCV 89.8 MCH 31.3 MCHC 34.9 RDW 12.5 Plt Count 141 L MPV 10.2 Absolute Nucleated RBC 0.000 Nucleated RBC % (auto) 0.0 Anion Gap 12 Estim Creat Clear Calc 66.1 Estimated GFR > 60 Random Glucose 108 Calcium 7.3 L Total Creatine Kinase Procalcitonin Urine Color YELLOW Urine Appearance CLEAR Urine pH 6.0 Ur Specific [place] >= 1.030 H Urine Protein 2+ H Urine Glucose (UA) NEG Urine Ketones 5 Urine Blood 3+ H Urine Nitrite NEG Ur Leukocyte Esterase NEG Urine RBC 0-2 Urine WBC 1-4 Ur Squamous Epith Cells TRACE Amorphous Sediment 2+ Urine Bacteria NONE Hyaline Casts 0-2 Granular Casts 0-2 Urine Mucus 1+ 01/12/22 01/12/22 04:18 04:18 MCV MCH MCHC RDW Plt Count MPV Absolute Nucleated RBC Nucleated RBC % (auto) Anion Gap 13 Estim Creat Clear Calc 91.4 Estimated GFR > 60 Random Glucose 87 Calcium 7.7 L Total Creatine Kinase 83298 H Procalcitonin 3.03 Urine Color Urine Appearance Urine pH Ur Specific [place] Urine Protein Urine Glucose (UA) Urine Ketones Urine Blood Urine Nitrite Ur Leukocyte Esterase Urine RBC Urine WBC Ur Squamous Epith Cells Amorphous Sediment Urine Bacteria Hyaline Casts Granular Casts Urine Mucus Microbiology Microbiology Results: Microbiology 01/11/22 12:15 Blood Culture - Preliminary Blood - Venous No growth after 24 hours. 01/11/22 12:15 Blood Culture - Preliminary Blood - Venous No growth after 24 hours. Assessment and Plan (1) Acute renal failure: Status: Acute (2) Fever: Status: Acute (3) Rhabdomyolysis: Status: Acute Plan hospital d#2 36 yo M with cocaine + opioid use disorders admitted with fever, pneumonia, BEBO, and rhabdomyolysis # BEBO due to rhabdomyolysis - SCr normalized with IV fluid hydration, continue until CPK <5000, monitor BMP + CPK # pneumonia - ceftriaxone d#2, vancomycin d#2, trend PCT, follow BCx # toxic-metabolic encephalopathy - improving with resolution of intoxication # transaminasemia - likely due to rhabdomyolysis # opioid withdrawal # cocaine abuse - Suboxone as per Addiction Medicine - screen HBV/HCV/HIV # VTE ppx: LMWH In my clinical judgment, the patient requires continued hospitalization for the following reasons: IV ABX +IV fluids Quality Stroke Does the patient have a stroke diagnosis?: No VTE Prior VTE?: No VTE Risk Level:: Medical - moderate - high VTE Device Contraindication: Treatment Not Tolerated VTE Drug Contraindication: N/A - Med Ordered
[2022-01-12] MEDS: cefTRIAXone sodium 1 GM in 0.9 % Sodium Chloride 50 ML IV (14:43)
[2022-01-12] MEDS: vancomycin HCL 1,000 MG in 0.9 % Sodium Chloride 250 ML 270 MG IV (16:39)
--- NOTE | 2022-01-12 20:35 | HO.ADDICT_ITS ---
History of Present Illness Date of Service: 01/12/2022 Chief Complaint: Altered Mental Status Reason for Consult: OUD--fentanyl and cocaine use Requesting physician: Keagan Ceballos Sources of Information: chart reviewed HPI Narrative: Patient is a 36 year old male with OUD (on MOUD -SUboxone) currently medically admitted with rhabdo and BEBO. Per chart review, patient presented to [facility] after being found wandering the streets , required chemical restraint due to behaviors while in ED. UDS+ cocaine, opiates, and fentanyl. RSRN checked in with patient earlier this morning to verify last subxone dose. Patient reported he takes suboxone daily with last dose being taken yesterday (01/11). Regular dose of suboxone ordered and administered--resulting in precipitated withdrawal. Additional 12mg suboxone ordered and administered with good effect. This global technical writer unable to obtain history from patient as he was quite drowsy when seen. He was able to report improvment in withdrawal sx and appeared quite comfortable Review of Systems Review of Systems Yes Unobtainable due to mental status (very drowsy--denies withdrawal sx) Diagnostics Vital Signs (24Hr): Vital Signs - 24 hr 01/12/22 00:02 01/12/22 04:00 01/12/22 07:23 Temperature 98.8 F Pulse Rate 51 56 61 Respiratory Rate 13 13 13 Blood Pressure 134/73 100/61 111/56 L Pulse Oximetry 98 95 96 Oxygen Delivery Method Nasal Cannula Nasal Cannula Nasal Cannula Oxygen Flow Rate 1 1 2 01/12/22 10:22 01/12/22 14:00 01/12/22 16:35 Temperature 97.5 F 98.5 F 98.7 F Pulse Rate 49 L 57 51 Respiratory Rate 16 14 18 Blood Pressure 117/72 104/64 122/73 Pulse Oximetry 99 94 93 Oxygen Delivery Method Nasal Cannula Room Air Room Air Oxygen Flow Rate 2 01/12/22 19:38 Temperature 98.6 F Pulse Rate 82 Respiratory Rate 18 Blood Pressure 122/63 Pulse Oximetry 94 Oxygen Delivery Method Room Air Oxygen Flow Rate BMI result Body Mass Index 26.5 Labs Results: 01/12/22 04:18 01/12/22 04:18 Labs: Laboratory Results - last 48 hr 01/11/22 01/11/22 01/11/22 10:47 11:00 11:16 WBC RBC Hgb Hct MCV MCH MCHC RDW Plt Count MPV Immature Gran % (Auto) Neut % (Auto) Lymph % (Auto) [place] % (Auto) Eos % (Auto) Baso % (Auto) Lymph # (Auto) [place] # (Auto) Eos # (Auto) Baso # (Auto) Abs Immat Gran (auto) Absolute Neuts (auto) Absolute Nucleated RBC Nucleated RBC % (auto) O2 Saturation 98.0 ABG pH at Pt Temp 7.33 L ABG pCO2 at Pt Temp 35 ABG pO2 at Pt Temp 136 H ABG HCO3 19 L ABG Base Excess (Actual) -5.7 Sodium Potassium Chloride Carbon Dioxide Anion Gap BUN Creatinine Estim Creat Clear Calc Estimated GFR Random Glucose Calcium Total Bilirubin AST ALT Alkaline Phosphatase Total Creatine Kinase Troponin I High Sens Total Protein Albumin Procalcitonin Urine Color Urine Appearance Urine pH Ur Specific [place] Urine Protein Urine Glucose (UA) Urine Ketones Urine Blood Urine Nitrite Ur Leukocyte Esterase Urine RBC Urine WBC Ur Squamous Epith Cells Amorphous Sediment Urine Bacteria Hyaline Casts Granular Casts Urine Mucus Urine Opiates Screen POSITIVE H Urine Fentanyl Screen POSITIVE H Ur Barbiturates Screen Not Detected Ur Phencyclidine Scrn Not Detected Ur Amphetamines Screen Not Detected U Benzodiazepines Scrn Not Detected Urine Cocaine Screen POSITIVE H U Marijuana (THC) Screen Not Detected Ethyl Alcohol Cancelled COVID-19 ([facility]) COVID-19 Clin Com 01/11/22 01/11/22 01/11/22 11:33 11:33 11:33 WBC 14.2 H RBC 4.26 L Hgb 13.4 L Hct 36.8 L MCV 86.4 MCH 31.5 MCHC 36.4 H RDW 12.1 Plt Count 148 L MPV 10.2 Immature Gran % (Auto) 0.4 Neut % (Auto) 81.5 H Lymph % (Auto) 8.7 L [place] % (Auto) 9.2 Eos % (Auto) 0.0 Baso % (Auto) 0.2 Lymph # (Auto) 1.2 [place] # (Auto) 1.3 H Eos # (Auto) 0.0 Baso # (Auto) 0.0 Abs Immat Gran (auto) 0.05 H Absolute Neuts (auto) 11.6 H Absolute Nucleated RBC 0.000 Nucleated RBC % (auto) 0.0 O2 Saturation ABG pH at Pt Temp ABG pCO2 at Pt Temp ABG pO2 at Pt Temp ABG HCO3 ABG Base Excess (Actual) Sodium 139 Potassium 3.1 L Chloride 105 Carbon Dioxide 20 L Anion Gap 17 BUN 72 H Creatinine 2.45 H Estim Creat Clear Calc 33.2 Estimated GFR 30 Random Glucose 136 H Calcium 7.7 L Total Bilirubin 1.7 H AST 259 H ALT 100 H Alkaline Phosphatase 65 Total Creatine Kinase 07378 H Troponin I High Sens 30.5 Total Protein 6.0 L Albumin 3.8 Procalcitonin Urine Color Urine Appearance Urine pH Ur Specific [place] Urine Protein Urine Glucose (UA) Urine Ketones Urine Blood Urine Nitrite Ur Leukocyte Esterase Urine RBC Urine WBC Ur Squamous Epith Cells Amorphous Sediment Urine Bacteria Hyaline Casts Granular Casts Urine Mucus Urine Opiates Screen Urine Fentanyl Screen Ur Barbiturates Screen Ur Phencyclidine Scrn Ur Amphetamines Screen U Benzodiazepines Scrn Urine Cocaine Screen U Marijuana (THC) Screen Ethyl Alcohol < 10 COVID-19 ([facility]) COVID-19 Clin Com 01/11/22 01/11/22 01/12/22 14:00 21:27 00:04 WBC RBC Hgb Hct MCV MCH MCHC RDW Plt Count MPV Immature Gran % (Auto) Neut % (Auto) Lymph % (Auto) [place] % (Auto) Eos % (Auto) Baso % (Auto) Lymph # (Auto) [place] # (Auto) Eos # (Auto) Baso # (Auto) Abs Immat Gran (auto) Absolute Neuts (auto) Absolute Nucleated RBC Nucleated RBC % (auto) O2 Saturation ABG pH at Pt Temp ABG pCO2 at Pt Temp ABG pO2 at Pt Temp ABG HCO3 ABG Base Excess (Actual) Sodium 141 Potassium 4.0 D Chloride 111 H Carbon Dioxide 22 Anion Gap 12 BUN 48 H Creatinine 1.23 Estim Creat Clear Calc 66.1 Estimated GFR > 60 Random Glucose 108 Calcium 7.3 L Total Bilirubin AST ALT Alkaline Phosphatase Total Creatine Kinase Troponin I High Sens Total Protein Albumin Procalcitonin Urine Color YELLOW Urine Appearance CLEAR Urine pH 6.0 Ur Specific [place] >= 1.030 H Urine Protein 2+ H Urine Glucose (UA) NEG Urine Ketones 5 Urine Blood 3+ H Urine Nitrite NEG Ur Leukocyte Esterase NEG Urine RBC 0-2 Urine WBC 1-4 Ur Squamous Epith Cells TRACE Amorphous Sediment 2+ Urine Bacteria NONE Hyaline Casts 0-2 Granular Casts 0-2 Urine Mucus 1+ Urine Opiates Screen Urine Fentanyl Screen Ur Barbiturates Screen Ur Phencyclidine Scrn Ur Amphetamines Screen U Benzodiazepines Scrn Urine Cocaine Screen U Marijuana (THC) Screen Ethyl Alcohol COVID-19 ([facility]) Negative COVID-19 Clin Com See Note 01/12/22 01/12/22 01/12/22 04:18 04:18 04:18 WBC 11.5 H RBC 4.02 L Hgb 12.6 L Hct 36.1 L MCV 89.8 MCH 31.3 MCHC 34.9 RDW 12.5 Plt Count 141 L MPV 10.2 Immature Gran % (Auto) Neut % (Auto) Lymph % (Auto) [place] % (Auto) Eos % (Auto) Baso % (Auto) Lymph # (Auto) [place] # (Auto) Eos # (Auto) Baso # (Auto) Abs Immat Gran (auto) Absolute Neuts (auto) Absolute Nucleated RBC 0.000 Nucleated RBC % (auto) 0.0 O2 Saturation ABG pH at Pt Temp ABG pCO2 at Pt Temp ABG pO2 at Pt Temp ABG HCO3 ABG Base Excess (Actual) Sodium 143 Potassium 3.9 Chloride 113 H Carbon Dioxide 21 L Anion Gap 13 BUN 41 H Creatinine 0.89 Estim Creat Clear Calc 91.4 Estimated GFR > 60 Random Glucose 87 Calcium 7.7 L Total Bilirubin AST ALT Alkaline Phosphatase Total Creatine Kinase 39112 H Troponin I High Sens Total Protein Albumin Procalcitonin 3.03 Urine Color Urine Appearance Urine pH Ur Specific [place] Urine Protein Urine Glucose (UA) Urine Ketones Urine Blood Urine Nitrite Ur Leukocyte Esterase Urine RBC Urine WBC Ur Squamous Epith Cells Amorphous Sediment Urine Bacteria Hyaline Casts Granular Casts Urine Mucus Urine Opiates Screen Urine Fentanyl Screen Ur Barbiturates Screen Ur Phencyclidine Scrn Ur Amphetamines Screen U Benzodiazepines Scrn Urine Cocaine Screen U Marijuana (THC) Screen Ethyl Alcohol COVID-19 ([facility]) COVID-19 Clin Com Imaging Radiology Impressions: ITS Impressions Chest X-Ray 01/11/22 12:35 IMPRESSION: Bilateral infiltrates probably representing pneumonia. Mental Status Exam Mental Status Exam Level of Consciousness: Drowsy and Sedated Medications Medications Current Medications Acetaminophen (Acetaminophen 325 Mg Tablet) 650 mg PO Q6H PRN PRN Reason: Pain, Mild (Pain Scale 1-3) Buprenorphine/Naloxone (Buprenorphine/Naloxone 12/3 Mg Film) 1 film SUBLINGUAL DAILY [facility] Last Admin: 01/12/22 10:04 Dose: 1 film Enoxaparin Sodium (Enoxaparin Sodium 40 Mg/0.4 Ml Syringe) 40 mg SUBCUT Q24H [facility] Lactated Ringer's (Lr) 1,000 mls @ 150 mls/hr IVCONT .Q6H40M [facility] Last Admin: 01/12/22 17:31 Dose: 150 mls/hr Vancomycin HCl 1,000 mg/ (Sodium Chloride) 270 mls @ 270 mls/hr IV Q24H [facility] Last Infusion: 01/12/22 18:12 Dose: Infused Ceftriaxone Sodium 1 gm/ (Sodium Chloride) 50 mls @ 100 mls/hr IV Q24H [facility] Last Infusion: 01/12/22 15:13 Dose: Infused Ondansetron HCl (Ondansetron Hcl 4 Mg/2 Ml Vial) 4 mg IVPUSH Q8H PRN PRN Reason: Nausea and Vomiting Pharmacy Consult (Consult Rx Vancomycin Dosing) 1 each MISCELLANE DAILY PRN PRN Reason: Consult order Sodium Chloride (0.9 % Sodium Chloride Flush 3 Ml Syringe) 3 ml IVFLUSH QSHIFT [facility] Last Admin: 01/12/22 16:40 Dose: Not Given Allergies Allergies Allergy/AdvReac Type Severity Reaction Status Date / Time azithromycin [From ZITHROMAX] Allergy Unknown HIVES Verified 01/12/22 09:43 amoxicillin [From AUGMENTIN] AdvReac Unknown STOMACH Verified 01/12/22 09:43 PAIN clavulanic acid AdvReac Unknown STOMACH Verified 01/12/22 09:43 [From AUGMENTIN] PAIN Assessment & Plan Assessment & Plan (1) Opioid use disorder: Status: Acute Code(s): F11.90 - Opioid use, unspecified, uncomplicated Assessment and Plan: * precipitated withdrawal resolved * continue suboxone dose 12mg QD * RS will follow up prior to discharge I spent ___20___ minutes with the patient and/or on the patient floor today, greater than?50% of which was spent counseling/coordinating care. [facility] Social History Social History Household Members: Family Do you presently have visiting nurse or other home services: No Unable to assess alcohol history related to: Unable to respond Patient Tobacco Use Status: Tobacco use Unknown Substance Use Type: Crack/Cocaine and Opiates service: No Current occupational status: unemployed
[2022-01-13] MEDS: Lactated Ringers 1,000 ML 150 ML IVCONT ×2 (00:28→06:23)
[2022-01-13 07:35] VITALS: BP 126/58; PULSE 52; RESP 18; TEMP 36.8; O2SAT 95
[2022-01-13 10:03] LABS: Hematocrit 33.5 % (42.0-52.0); Hemoglobin 11.7 g/dl (14.0-18.0); Mean Corpuscular HGB Conc 34.9 g/dl (31.0-36.0); Mean Corpuscular Hemoglobin 31.3 pg (27.0-33.0); Mean Corpuscular Volume 89.6 fL (80.0-98.0); Mean Platelet Volume 10.3 fL (9.4-12.4); Platelet Count 139 X10*3/uL (160-400); Red Blood Count 3.74 X10*6/uL (4.60-5.80); Red Cell Distribution Width 12.7 % (11.0-16.0); White Blood Count 7.8 X10*3/uL (4.8-10.8)
--- NOTE | 2022-01-13 10:34 | HO.PM.IMPN ---
Subjective Subjective Date of Service: 01/13/22 Interval History: Coughing but denies dyspnea Withdrawal improved on Suboxone Review of Systems Review of Systems: Yes all other systems are reviewed and are negative Physical Exam Vital Signs: Vital Signs: Last Vital Signs Temp 98.2 F 01/13/22 07:35 Pulse 52 01/13/22 07:35 Resp 18 01/13/22 07:35 BP 126/58 L 01/13/22 07:35 Pulse Ox 95 01/13/22 07:35 O2 Del Method 01/13/22 07:35 O2 Flow Rate 2 01/12/22 10:22 Oxygen Flow Rate 2 01/11/22 10:44 BMI result Body Mass Index 26.5 Gen: disheveled, in NAD HEENT: sclera anicteric, moist mucus membranes Neck: supple Lungs: bilateral inspiratory crackles Heart: regular + bradycardic, no murmurs Abd: soft, non-tender, non-distended Ext: no edema Skin: warm/well-perfused, multiple calluses on feet Neuro: alert and oriented x3, no focal findings Psych: restricted affect Objective Data Active Medications Acetaminophen (Acetaminophen 325 Mg Tablet) 650 mg PO Q6H PRN PRN Reason: Pain, Mild (Pain Scale 1-3) Buprenorphine/Naloxone (Buprenorphine/Naloxone 12/3 Mg Film) 1 film SUBLINGUAL DAILY [facility] Last Admin: 01/12/22 10:04 Dose: 1 film Documented By: JULIA Enoxaparin Sodium (Enoxaparin Sodium 40 Mg/0.4 Ml Syringe) 40 mg SUBCUT Q24H [facility] Last Admin: 01/13/22 06:24 Dose: Not Given Documented By: MANJIT Non-Admin Reason: Patient Refused Comments: sick of being poked Lactated Ringer's (Lr) 1,000 mls @ 150 mls/hr IVCONT .Q6H40M [facility] Last Admin: 01/13/22 06:23 Dose: 150 mls/hr Documented By: MANJIT Vancomycin HCl 1,000 mg/ (Sodium Chloride) 270 mls @ 270 mls/hr IV Q24H [facility] Last Infusion: 01/12/22 18:12 Dose: 0 mls/hr Documented By: MARIOLA Ceftriaxone Sodium 1 gm/ (Sodium Chloride) 50 mls @ 100 mls/hr IV Q24H [facility] Last Infusion: 01/12/22 15:13 Dose: 0 mls/hr Documented By: BRYAN Ondansetron HCl (Ondansetron Hcl 4 Mg/2 Ml Vial) 4 mg IVPUSH Q8H PRN PRN Reason: Nausea and Vomiting Pharmacy Consult (Consult Rx Vancomycin Dosing) 1 each MISCELLANE DAILY PRN PRN Reason: Consult order Sodium Chloride (0.9 % Sodium Chloride Flush 3 Ml Syringe) 3 ml IVFLUSH QSHIFT [facility] Last Admin: 01/13/22 00:32 Dose: Not Given Documented By: MANJIT Non-Admin Reason: IV Running Labs CBC & Chem 7: 01/13/22 09:55 01/13/22 09:55 Labs: Laboratory Results - last 24 hr 01/13/22 01/13/22 01/13/22 09:55 09:55 09:55 WBC 7.8 RBC 3.74 L Hgb 11.7 L Hct 33.5 L MCV 89.6 MCH 31.3 MCHC 34.9 RDW 12.7 Plt Count 139 L MPV 10.3 Absolute Nucleated RBC 0.000 Nucleated RBC % (auto) 0.0 Sodium 143 Potassium 3.4 Chloride 109 H Carbon Dioxide 26 Anion Gap 11 L BUN 18 H D Creatinine 0.69 0.69 Estim Creat Clear Calc 117.9 117.9 Estimated GFR > 60 > 60 Random Glucose 129 H D Calcium 8.0 L Total Bilirubin 0.5 AST 122 H ALT 87 H Alkaline Phosphatase 53 Total Creatine Kinase 4206 H D Total Protein 4.6 L D Albumin 2.8 L D Microbiology Microbiology Results: Microbiology 01/11/22 12:15 Blood Culture - Preliminary Blood - Venous No growth after 24 hours. 01/11/22 12:15 Blood Culture - Preliminary Blood - Venous No growth after 24 hours. Assessment and Plan (1) Acute renal failure: Status: Acute (2) Fever: Status: Acute (3) Rhabdomyolysis: Status: Acute Plan hospital d#3 36 yo M with cocaine + opioid use disorders admitted with fever, pneumonia, BEBO, and rhabdomyolysis # BEBO due to rhabdomyolysis - SCr normalized with IV fluid hydration, continue IV fluids until CPK <5000, monitor BMP + CPK # pneumonia - ceftriaxone d#3, vancomycin d#3, trend PCT, follow BCx # toxic-metabolic encephalopathy - improved with resolution of intoxication # transaminasemia - likely due to rhabdomyolysis # opioid withdrawal # cocaine abuse - Suboxone as per Addiction Medicine - screen HBV/HCV/HIV pending # VTE ppx: LMWH In my clinical judgment, the patient requires continued hospitalization for the following reasons: IV ABX + IV fluids Quality Stroke Does the patient have a stroke diagnosis?: No VTE Prior VTE?: No VTE Risk Level:: Medical - moderate - high VTE Device Contraindication: Treatment Not Tolerated VTE Drug Contraindication: N/A - Med Ordered
[2022-01-13 10:52] LABS: HBS Num1 > 1000.00 mIU/mL (0-7.99); HBc Num1 0.04 S/CO (0.00-0.79); HBsAGNum1 0.24 S/CO (0.00-0.99); HIV AB/AG Nonreactive (Nonreactive); HIV Num 1 0.11 S/CO (0.00-0.99); Hepatitis B Core Antibody Nonreactive (Nonreactive); Hepatitis B Surface Antigen Negative (Negative); ~Hepatitis B Surface Antibody REACTIVE (Nonreactive)
[2022-01-13 10:53] LABS: Alanine Aminotransferase 87 U/L (0-40); Albumin Level 2.8 g/dL (3.5-5.0); Alkaline Phosphatase 53 U/L (39-117); Anion Gap 11 (12-20); Aspartate Amino Transferase 122 U/L (5-37); Bilirubin Total 0.5 mg/dL (0.0-1.0); Blood Urea Nitrogen 18 mg/dL (9-16); Carbon Dioxide 26 mmol/L (22-29); Chloride 109 mmol/L (96-108); Creatinine Clr Calc Pharmacy 117.9; Estimated Glomerular Filt Rate > 60; Glucose Random 129 mg/dL (60-115); Potassium 3.4 mmol/L (3.3-5.1); Sodium 143 mmol/L (135-145); Total Protein 4.6 g/dL (6.5-8.0)
[2022-01-13 11:08] LABS: Creatinine Clr Calc Pharmacy 117.9; Estimated Glomerular Filt Rate > 60
[2022-01-13] MEDS: 0.9 % Sodium Chloride Flush 3 ML SYRINGE IVFLUSH (11:31)
[2022-01-13] MEDS: Buprenorphine/Naloxone 12/3 mg FILM 1 FILM SUBLINGUAL (11:31)
[2022-01-13 11:32] VITALS: BP 133/65; PULSE 60; RESP 17; TEMP 36.7; O2SAT 95
[2022-01-13] MEDS: Acetaminophen 325 MG TABLET 650 MG PO (11:53)
--- NOTE | 2022-01-13 12:15 | MHC.RECOVRN ---
Briefly met with pt in 450 to follow up after Suboxone restart yesterday. Pt in bed, awake, alert, resistant to engage in conversation. Pt does not appear to be in withdrawal at this time. Pt received 12/3 mg (outpatient dose) and reports positive effect. Denies questions or concerns at this time. Discussed with Rena Mayo APRN. Will continue to follow.
[2022-01-13 14:06] LABS: Vancomycin Random < 3.0 mcg/mL (15-20)
--- NOTE | 2022-01-13 14:20 | HE.PHANOTE ---
Vancomycin Dosing Addendum Patients level came back at < 3 mg/dL this afternoon, meaning patient has cleared all the medication. With the diagnosis of bacteremia, patient needs to be reloaded. We reloaded the patient with 1750mg which is 25 mg/kg. Patients renal function has significantly improved down to 0.69 from 2.45. We believe this is why the patients level was so low. Dose of 1500mg Q12 will be his current regimen after load. Level to be drawn 01/15 at 1300. Predicted AUC is 493 mg/L/hr
[2022-01-13 14:55] VITALS: BP 114/58; PULSE 80; RESP 18; TEMP 36.7; O2SAT 96
[2022-01-13] MEDS: cefTRIAXone sodium 1 GM in 0.9 % Sodium Chloride 50 ML IV (15:00)
[2022-01-13] MEDS: vancomycin HCL 1,500 MG in 0.9 % Sodium Chloride 500 ML 333.33 MG IV (15:33)
[2022-01-13 19:45] VITALS: BP 138/91; PULSE 63; RESP 18; TEMP 36.8; O2SAT 98
[2022-01-13 23:54] VITALS: BP 143/76; PULSE 67; RESP 18; TEMP 36.8; O2SAT 98
[2022-01-14] MEDS: vancomycin HCL 1,500 MG in 0.9 % Sodium Chloride 500 ML 333.33 MG IV (03:11)
[2022-01-14] MEDS: 0.9 % Sodium Chloride Flush 3 ML SYRINGE IVFLUSH ×2 (03:11→10:23)
[2022-01-14 03:51] VITALS: BP 147/85; PULSE 54; RESP 18; TEMP 36.7; O2SAT 97
[2022-01-14 07:09] LABS: Alanine Aminotransferase 78 U/L (0-40); Albumin Level 2.8 g/dL (3.5-5.0); Alkaline Phosphatase 53 U/L (39-117); Anion Gap 10 (12-20); Aspartate Amino Transferase 86 U/L (5-37); Bilirubin Total 0.4 mg/dL (0.0-1.0); Blood Urea Nitrogen 18 mg/dL (9-16); Calcium 7.8 mg/dL (8.4-10.2); Carbon Dioxide 28 mmol/L (22-29); Chloride 110 mmol/L (96-108); Creatinine Clr Calc Pharmacy 121.4; Estimated Glomerular Filt Rate > 60; Glucose Random 85 mg/dL (60-115); Potassium 3.4 mmol/L (3.3-5.1); Sodium 145 mmol/L (135-145); Total Protein 4.6 g/dL (6.5-8.0)
[2022-01-14 07:24] VITALS: BP 127/80; PULSE 52; RESP 16; TEMP 36.8; O2SAT 97
--- NOTE | 2022-01-14 07:58 | HE.PHANOTE ---
vancomysin dosing addendum Patient was to be reloaded yesterday with 1750mg, patient received 1500mg instead. Patients maintenance dose currently is 1500mg Q12H, will continue with this maintenance regardless of improper reload. Patients renal function continues to be stable at this time. Considered going to 1750mg Q12 however, toxicity is 10% and given patients kidney function at admission, I do not want to risk toxicity. However, patients renal function has significantly improved, and patient is young. Changing maintenance dose to 1000mg Q8 as patient is clearly well. Predicted AUC 482 mg/L/hr.
[2022-01-14 08:23] LABS: Procalcitonin 0.54 ng/mL
[2022-01-14] MEDS: Acetaminophen 325 MG TABLET 650 MG PO (10:21)
[2022-01-14] MEDS: Buprenorphine/Naloxone 12/3 mg FILM 1 FILM SUBLINGUAL (10:21)
[2022-01-14] MEDS: vancomycin HCL 1,000 MG in 0.9 % Sodium Chloride 250 ML 270 MG IV (10:21)
--- NOTE | 2022-01-14 10:42 | P.DS_ITS ---
DS: Providers Provider Date of Service: 01/14/22 Date of admission: 01/11/22 14:08 Date of discharge: 01/14/22 Primary care physician: Unknown Physician Consults: 01/12/22 08:10 Addiction Medicine Routine Consulting Provider: Rena Mayo Reason for consultation: cocaine/fentanyl Consult to Care Team Routine Comment: Reason for consultation: cocaine/fentanyl 01/12/22 10:01 Consult to Wound Care [place]ine [place] [facility] [place] Reason for consultation: foot wounds DS: Diagnosis Discharge Diagnosis (1) Acute renal failure: Status: Acute (2) Rhabdomyolysis: Status: Acute (3) Multifocal pneumonia: Status: Acute (4) Opioid use disorder: Status: Acute (5) Cocaine use disorder: Status: Acute (6) Toxic metabolic encephalopathy: Status: Acute DS: Summary Hospital Course Hospital Course: from admission history and physical by hospitalist Brendan Gibson MD, 01/11/22: This is a 36-year-old male with a past medical history of polysubstance injection drug use who was found wandering the streets by a police and was brought to [facility].? Currently the patient is slightly sedated and hence unable to provide a meaningful history.? History is obtained from the ED physician.? Apparently the patient arrived to the ED extremely agitated and combative.? He had to be chemically and physically restrained.? His workup has seen showed rhabdomyolysis with acute kidney injury.? His chest x-ray shows possible pneumonia.? He has been given multiple doses of sedatives as well as multiple rounds of intravenous fluid boluses.? He is now more calm but still very sleepy.? He knows he is in the hospital otherwise does not answer too many questions. This 36 year-old male with cocaine + opioid use disorders [place] [facility] [place], pneumonia, altered mental status, BEBO, and rhabdomyolysis. Hospital course by problem: # BEBO due to rhabdomyolysis - Creatinine normalized with aggressive IV fluid hydration and CPK came down rapidly. Likely etiology was cocaine abuse and he was counseled to avoid all substances of abuse. # pneumonia - He was treated with IV vancomycin and ceftriaxone for 3 days. Blood cultures were negative. He was not hypoxic. Procalcitonin declined appropriately. He was discharged on 4 days of PO doxycyline and cefpodoxime. Covid-19 SOLIS and HIV Ab/Ag were negative. - ceftriaxone d#3, vancomycin d#3, trend PCT, follow BCx # toxic-metabolic encephalopathy - This resolved as the intoxication wore off and the above conditions were treated. # opioid withdrawal - He was seen by Addiction Medicine and Suboxone was resumed. # cocaine abuse - He was counseled to avoid cocaine and all substances of abuse. He is immune to HBV. HCV viral load is pending at the time of discharge [he has a history of prior HCV, treated] He was discharged home with instructions to follow-up with his primary care doctor in 1 week. Time Spent with Patient Time attestation: Total time spent providing and/or coordinating discharge services: Discharge coordination time: Greater than 30 minutes Quality: Safe Use of Opioids Does Pt have an Active Cancer Diagnosis on the Problem List?: No Quality: Stroke Does the patient have a stroke diagnosis?: No Physical Exam Vital Signs: Vital Signs: Last Vital Signs Temp 98.2 F 01/14/22 07:24 Pulse 52 01/14/22 07:24 Resp 16 01/14/22 07:24 BP 127/80 01/14/22 07:24 Pulse Ox 97 01/14/22 07:24 O2 Del Method 01/14/22 07:24 O2 Flow Rate 2 01/12/22 10:22 Oxygen Flow Rate 2 01/11/22 10:44 BMI result Body Mass Index 26.5 Gen: in no acute distress HEENT: sclera anicteric, moist mucus membranes Neck: supple Lungs: clear to auscultation bilaterally Heart: regular rate and rhythm, no murmurs Abd: soft, non-tender, non-distended Ext: no edema Skin: warm/well-perfused Neuro: alert and oriented x3, no focal findings Psych: appropriate affect DS: Data Data Completed and Pending Completed studies during hospitalization [Text1]: Laboratory Results WBC 7.8 X10*3/uL (4.8-10.8) 01/13/22 09:55 RBC 3.74 X10*6/uL (4.60-5.80) L 01/13/22 09:55 Hgb 11.7 g/dl (14.0-18.0) L 01/13/22 09:55 Hct 33.5 % (42.0-52.0) L 01/13/22 09:55 MCV 89.6 fL (80.0-98.0) 01/13/22 09:55 MCH 31.3 pg (27.0-33.0) 01/13/22 09:55 MCHC 34.9 g/dl (31.0-36.0) 01/13/22 09:55 RDW 12.7 % (11.0-16.0) 01/13/22 09:55 Plt Count 139 X10*3/uL (160-400) L 01/13/22 09:55 MPV 10.3 fL (9.4-12.4) 01/13/22 09:55 Immature Gran % (Auto) 0.4 % (0.0-0.4) 01/11/22 11:33 Neut % (Auto) 81.5 % (45-73) H 01/11/22 11:33 Lymph % (Auto) 8.7 % (20-40) L 01/11/22 11:33 [place] % (Auto) 9.2 % (2-11) 01/11/22 11:33 Eos % (Auto) 0.0 % (0-4) 01/11/22 11:33 Baso % (Auto) 0.2 % (0-2) 01/11/22 11:33 Lymph # (Auto) 1.2 X10*3/uL (1.2-4.9) 01/11/22 11:33 Cottle # (Auto) 1.3 X10*3/uL (0.1-1.2) H 01/11/22 11:33 Eos # (Auto) 0.0 X10*3/uL (0.0-0.4) 01/11/22 11:33 Baso # (Auto) 0.0 X10*3/uL (0.0-0.2) 01/11/22 11:33 Abs Immat Gran (auto) 0.05 X10*3/uL (0.00-0.03) H 01/11/22 11:33 Absolute Neuts (auto) 11.6 x10*3/uL (2.0-8.3) H 01/11/22 11:33 Absolute Nucleated RBC 0.000 X10*3/uL (0.0-0.012) 01/13/22 09:55 Nucleated RBC % (auto) 0.0 /100WBC (0.0-0.2) 01/13/22 09:55 O2 Saturation 98.0 % 01/11/22 11:16 ABG pH at Pt Temp 7.33 (7.35-7.45) L 01/11/22 11:16 ABG pCO2 at Pt Temp 35 mmHg (32-45) 01/11/22 11:16 ABG pO2 at Pt Temp 136 mmHg (83-108) H 01/11/22 11:16 ABG HCO3 19 mmol/L (22-26) L 01/11/22 11:16 ABG Base Excess (Actual) -5.7 mmol/L 01/11/22 11:16 Sodium 145 mmol/L (135-145) 01/14/22 06:04 Potassium 3.4 mmol/L (3.3-5.1) 01/14/22 06:04 Chloride 110 mmol/L (96-108) H 01/14/22 06:04 Carbon Dioxide 28 mmol/L (22-29) 01/14/22 06:04 Anion Gap 10 (12-20) L 01/14/22 06:04 BUN 18 mg/dL (9-16) H 01/14/22 06:04 Creatinine 0.67 mg/dL (0.5-1.4) 01/14/22 06:04 Estim Creat Clear Calc 121.4 01/14/22 06:04 Estimated GFR > 60 01/14/22 06:04 Random Glucose 85 mg/dL (60-115) 01/14/22 06:04 Calcium 7.8 mg/dL (8.4-10.2) L 01/14/22 06:04 Total Bilirubin 0.4 mg/dL (0.0-1.0) 01/14/22 06:04 AST 86 U/L (5-37) H 01/14/22 06:04 ALT 78 U/L (0-40) H 01/14/22 06:04 Alkaline Phosphatase 53 U/L (39-117) 01/14/22 06:04 Total Creatine Kinase 2425 U/L (38-174) H D 01/14/22 06:04 Troponin I High Sens 30.5 ng/L (<3.5-35.0) 01/11/22 11:33 Total Protein 4.6 g/dL (6.5-8.0) L 01/14/22 06:04 Albumin 2.8 g/dL (3.5-5.0) L 01/14/22 06:04 Procalcitonin 0.54 ng/mL 01/14/22 06:04 Urine Color YELLOW 01/12/22 00:04 Urine Appearance CLEAR 01/12/22 00:04 Urine pH 6.0 (5.0-8.0) 01/12/22 00:04 Ur Specific [place] >= 1.030 (1.005-1.025) H 01/12/22 00:04 Urine Protein 2+ MG/DL (NEG-TRACE) H 01/12/22 00:04 Urine Glucose (UA) NEG MG/DL (NEG) 01/12/22 00:04 Urine Ketones 5 MG/DL (NEG) 01/12/22 00:04 Urine Blood 3+ (NEG) H 01/12/22 00:04 Urine Nitrite NEG (NEG) 01/12/22 00:04 Ur Leukocyte Esterase NEG (NEG) 01/12/22 00:04 Urine RBC 0-2 /HPF (0) 01/12/22 00:04 Urine WBC 1-4 /HPF (0-4) 01/12/22 00:04 Ur Squamous Epith Cells TRACE /LPF 01/12/22 00:04 Amorphous Sediment 2+ /LPF 01/12/22 00:04 Urine Bacteria NONE /LPF 01/12/22 00:04 Hyaline Casts 0-2 /LPF 01/12/22 00:04 Granular Casts 0-2 /LPF 01/12/22 00:04 Urine Mucus 1+ /LPF 01/12/22 00:04 Random Vancomycin < 3.0 mcg/mL (15-20) L 01/13/22 13:16 Urine Opiates Screen POSITIVE (Not Detect) H 01/11/22 11:00 Urine Fentanyl Screen POSITIVE (Not Detect) H 01/11/22 11:00 Ur Barbiturates Screen Not Detected (Not Detect) 01/11/22 11:00 Ur Phencyclidine Scrn Not Detected (Not Detect) 01/11/22 11:00 Ur Amphetamines Screen Not Detected (Not Detect) 01/11/22 11:00 U Benzodiazepines Scrn Not Detected (Not Detect) 01/11/22 11:00 Urine Cocaine Screen POSITIVE (Not Detect) H 01/11/22 11:00 U Marijuana (THC) Screen Not Detected (Not Detect) 01/11/22 11:00 Ethyl Alcohol < 10 mg/dL 01/11/22 11:33 COVID-19 (SOLIS) Negative (Negative) 01/11/22 14:00 COVID-19 Clin Com See Note 01/11/22 14:00 Hep Bs Antigen Negative (Negative) 01/13/22 09:55 Hep Bs Antibody REACTIVE (Nonreactive) 01/13/22 09:55 Hep B Core Total Ab Nonreactive (Nonreactive) 01/13/22 09:55 HIV 1&2 Ab/P24 Ag 4thGn Nonreactive (Nonreactive) 01/13/22 09:55 Impressions Chest X-Ray 01/11/22 12:35 IMPRESSION: Bilateral infiltrates probably representing pneumonia. Wrist X-Ray 01/13/22 13:38 IMPRESSION: Normal left wrist. Discharge Plan Discharge Patient Disposition: Home, Self-Care Discharge Diagnosis: BEBO, pneumonia, encephalopathy, opioid use disorder, cocaine abuse Referrals: Valentino Brothers MD [Physician] - 1 Week Discharge Medications: New doxycycline monohydrate 100 mg tablet 100 mg PO BID Qty: 8 0RF cefpodoxime 200 mg tablet 200 mg PO BID Qty: 8 0RF Rx Instructions: must administer with a meal/food Continued buprenorphine-naloxone 12-3 mg film 1 strip sublingual DAILY Discharge Orders: Discharge Order (Routine); Ordered 01/14/22 Ordered By: Keagan Ceballos Diet: Advance to usual diet Activity on Discharge: As tolerated Stand Alone Forms: Patient Portal Discharge page, Community Support Activity Restrictions/Additional Instructions: avoid drugs of abuse Care Plan Goals: recovery from pneumonia kidney health sobriety Health Concerns: BEBO, pneumonia, encephalopathy, opioid use disorder, cocaine abuse Plan of Treatment: take 2 antibiotics for 4 days: - doxycycline 100 mg twice daily - cefpodoxime 200 mg twice daily resume Suboxone avoid cocaine, opiates, and other drugs of abuse see your primary care doctor in one week pending at the time of discharge: hepatitis C viral load return to the hospital if any recurrent symptoms Assessment: See Discharge Summary Patient Instructions: Pneumonia (DC)
--- NOTE | 2022-01-14 11:17 | MHC.CM.PN ---
Patient d/c home today, no services. @ bedside and going to transport home.
[2022-01-15 15:21] LABS: HCV Log PCR <1.18 NOT DETECTED Log IU/mL (NOT DETECTED); HepC Viral Load <15 NOT DETECTED IU/mL (NOT DETECTED)
== END 2022-01-14 13:20 | disposition home or self-care (01) | DRG 917 ==
LOC: HO.ED 13:33 → HO.EDOVER 14:16 → HO.IMC 01-12 14:50
PROVIDERS: Admitting Provider Family Medicine; Emergency Provider Emergency Medicine; PCP Internal Medicine; Visit Provider Family Medicine
DX: T40.5X1A Poisoning by cocaine, accidental (unintentional), initial encounter (principal); G92.8 Other toxic encephalopathy; J18.9 Pneumonia, unspecified organism; N17.9 Acute kidney failure, unspecified; M62.82 Rhabdomyolysis; F11.23 Opioid dependence with withdrawal; F14.10 Cocaine abuse, uncomplicated; L84 Corns and callosities; E86.0 Dehydration; Z86.19 Personal history of other infectious and parasitic diseases; Z20.822 Contact with and (suspected) exposure to COVID-19; Z88.0 Allergy status to penicillin; Z88.1 Allergy status to other antibiotic agents; Z79.899 Other long term (current) drug therapy
CPT/HCPCS: 36415; 71045; 73110; 80048; 80053; 80202; 80307; 81001; 82077; 82550; 82565; 82803; 84145; 84484; 85025; 85027; 86704; 86706; 87040; 87340; 87389; 87522; 87635; 93005; 99285; J0696; J2250; J3370

== ENCOUNTER 2022-11-11 12:15 | Emergency (ER) | payer MEDICARE, MEDICAID, SELFPAY ==
[2022-11-11 12:23] VITALS: BP 140/80; PULSE 110; O2SAT 97
--- NOTE | 2022-11-11 12:24 | ED.GENADULT ---
HPI - General Adult General Chief complaint: ETOH/Substance Use Stated complaint: feels weird after concaine use per ems Time Seen by Provider: 11/11/22 12:22 Source: patient and EMS Mode of arrival: EMS Limitations: no limitations History of Present Illness HPI narrative: Patient is a 37 year old assigned male at with a history of PCP, cocaine, and opiate abuse presenting to the emergency department today after doing a line of coke and feeling poorly. Patient states that he snorted a line of what he believes was cocaine and feels as though his skin has turned magnetic . Patient denies any dizziness, lightheadedness, abdominal pain, nausea, vomiting, fever, chills, blurry vision, double vision, loss of vision, chest pain, difficulty breathing, shortness of breath, back pain, night sweats, pain with urination, increased urinary frequency, increased urinary urgency, blood in his urine or stool, syncope or a near syncopal episode, recent trauma or falls, bowel incontinence, bladder incontinence, bowel retention, bladder retention, or any other complaints at this time. Patient states that he is supposed to go to [facility] for detox but has not been able to get ahold of his uncle for a ride there. Relieving factors: none Exacerbating factors: none Associated symptoms: denies other symptoms Treatments prior to arrival: none Related Data Home Medications Medication Instructions Recorded Confirmed buprenorphine 12 mg-naloxone 3 mg 1 strip sublingual DAILY 01/11/22 01/11/22 sublingual film Previous Rx's Medication Instructions Recorded cefpodoxime 200 mg tablet 200 mg PO BID #8 tabs 01/14/22 doxycycline monohydrate 100 mg 100 mg PO BID #8 tabs 01/14/22 tablet hydroxyzine HCl 25 mg tablet 25 mg PO QID PRN itching #7 tabs 11/11/22 Allergies Allergy/AdvReac Type Severity Reaction Status Date / Time azithromycin [From ZITHROMAX] Allergy Unknown HIVES Verified 01/12/22 09:43 amoxicillin [From AUGMENTIN] AdvReac Unknown STOMACH Verified 01/12/22 09:43 PAIN clavulanic acid AdvReac Unknown STOMACH Verified 01/12/22 09:43 [From AUGMENTIN] PAIN Review of Systems Constitutional: Constitutional: Reports no additional constitutional complaints, Denies chills, Denies fever(s) and Denies night sweats Eyes: Eyes: Reports no additional eye complaints, Denies blurry vision, Denies change in vision, Denies diplopia, Denies eye discharge, Denies loss of vision and Denies eye pain ENT: Denies dizziness Cardiovascular: Cardiovascular: Reports no additional cardiovascular complaints, Denies chest pain, Denies lightheadedness, Denies Loss of Consciousness and Denies dyspnea Respiratory: Respiratory: Reports no additional respiratory complaints and Denies dyspnea Gastrointestinal: Gastrointestinal: Reports no additional gastrointestinal complaints, Denies abdominal pain, Denies melena, Denies hematochezia, Denies change in bowel habits and Denies change in stool character Genitourinary: Genitourinary: Reports no additional male genitourinary complaints, Denies hematuria, Denies oliguria, Denies difficulty urinating, Denies dysuria, Denies urinary frequency, Denies urinary hesitancy, Denies urinary incontinence and Denies urinary urgency Musculoskeletal: Musculoskeletal: Reports no additional musculoskeletal complaints, Denies numbness and Denies tingling Neurologic: Denies dizziness, Denies loss of vision, Denies numbness and Denies tingling Psychiatric: Psychiatric: Reports no additional psychiatric complaints Endocrine: Endocrine: Reports no additional endocrine complaints Hematologic/Lymphatic: Hematologic/Lymphatic: Reports no additional hematologic/lymphatic complaints Allergic/Immunologic: Allergic/Immunologic: Reports no additional allergic/immunologic complaints [facility] Past Medical History Attestation statement: The following information was validated with the patient. Source: old records reviewed and nursing notes reviewed Medical History Acute renal failure Bilateral pulmonary infiltrates on chest x-ray Cocaine use disorder Fever Rhabdomyolysis Social History Social History Household Members: Family Do you presently have visiting nurse or other home services: No Unable to assess alcohol history related to: Unable to respond Patient Tobacco Use Status: Tobacco use Unknown Substance Use Type: Crack/Cocaine and Opiates Advance Directives: No Advance Directives Information Provided: No service: No Current occupational status: unemployed Physical Exam ED Vital Signs: Vital Signs - 24 hr 11/11/22 12:41 Temperature 98.0 F Pulse Rate 109 H Respiratory Rate 18 Blood Pressure 132/70 Pulse Oximetry 97 Oxygen Delivery Method Room Air BMI result Body Mass Index 24.7 Const General: cooperative, no acute distress, alert and awake Nutritional Appearance: well nourished Orientation/consciousness: patient oriented x3 Limitations: no limitations HENMT Head: Yes normal to inspection and Yes atraumatic Ears: hearing grossly normal bilaterally and external ears normal General nose exam: Normal external nose present, no nasal discharge noted and no epistaxis Face and sinus: Yes normal facial exam, No abrasion and No laceration Mouth: Normal oral and palatal mucosa present, no drooling and no muffled voice Eyes General: appearance normal, both eyes and all related structures Periorbital: periorbital findings normal Eyelids: Yes eyelids normal Conjunctivae: conjunctivae normal Pupils: Equal, round and reactive pupils present EOM: EOMs intact bilaterally Neck Neck: Yes normal visual inspection, Yes full ROM and Yes no lymphadenopathy Chest Chest palpation & inspection: normal inspection of the chest Resp Effort & Inspection: normal respiratory effort and able to speak in complete sentences Auscultation: clear to auscultation bilaterally Cardio Rate: regular rate Rhythm: regular rhythm GI Inspection: Yes normal to inspection Palpation (GI): Soft to palpation, not firm, nontender, no guarding and not rigid Skin Other: multiple scabbed areas throughout the patient's upper and lower extremities, no signs of erythema or swelling and no warmth around any of these lesions Neuro General: patient oriented x3 and moves all extremities Cranial nerves: Yes Equal, round and reactive pupils present Cognition (Neuro): normal cognition Motor exam (neuro): 5/5 motor strength present throughout Sensory Exam: Normal double simultaneous stimulation for sensation Coordination: [id number] test normal Extrem General: Yes normal to inspection, Yes full ROM and Yes capillary refill normal Psych Appearance: grossly normal Mental Status: mental status grossly normal Affect: normal affect Attitude: cooperative Thought process: Normal thought process present Thought content: Normal thought content present Insight: Good insight present (Psych) Medications Administered Discontinued Medications Generic Name Dose Route Start Last Admin Trade Name Freq PRN Reason Stop Dose Admin Hydroxyzine HCl 50 mg 11/11/22 12:38 11/11/22 13:26 Hydroxyzine Hcl 50 Mg Tablet PO 11/11/22 12:39 Not Given ONCE ONE Naloxone HCl 4 mg 11/11/22 15:12 11/11/22 15:24 Naloxone Hcl Nasal Take Home 4 Mg [place] NOSTRILALT 11/11/22 15:13 4 mg ONCE ONE Administration Medical Decision Making Medical Decision Making MDM Narrative: Patient is a 37 year old assigned male at with a history of PCP, cocaine, and opiate abuse presenting to the emergency department today feeling generally unwell after using drugs. Patient's physical exam was as noted in the physical exam portion of this chart. Patient's blood work was unremarkable. Patient's EKG was unremarkable. I explained my physical exam findings as well as all test results to the patient. I answered all questions asked by the patient. Patient received atarax which he stated helped his symptoms significantly. I stressed the importance of the patient taking his medication as prescribed. I stressed the importance of the patient following up with his primary care provider and with [facility]. I stressed the importance of the patient returning to the emergency department immediately if his symptoms were to worsen or if he were to develop any dizziness, shortness of breath, difficulty breathing, chest pain, blurry vision, loss of vision, nausea, vomiting, abdominal pain, fever, chills, back pain, or any other complaints. Patient verbalized agreement and understanding with this treatment plan and discharge. Differential Diagnosis Differential Diagnoses: The differential diagnosis associated with the presentation includes PCP abuse/use, Cocaine abuse/use, skin picking Admission/Observation Consideration of admission/observation: Escalation of care including admission/observation considered Patient would have been admitted to the hospital had his work up had any findings where hospital admission was appropriate. Lab Data [facility] Lab Attestation statement: I reviewed the patient's lab results. My interpretation of these studies and their corresponding values is that they are grossly normal. 11/11/22 14:36 11/11/22 14:36 Labs: Lab Results 11/11/22 11/11/22 11/11/22 Range/Units 14:36 14:36 14:36 WBC (4.8-10.8) X10*3/uL RBC (4.60-5.80) X10*6/uL Hgb (14.0-18.0) g/dl Hct (42.0-52.0) % MCV (80.0-98.0) fL MCH (27.0-33.0) pg MCHC (31.0-36.0) g/dl RDW (11.0-16.0) % Plt Count (160-400) X10*3/uL MPV (9.4-12.4) fL Immature Gran % (Auto) (0.0-0.4) % Neut % (Auto) (45-73) % Lymph % (Auto) (20-40) % [place] % (Auto) (2-11) % Eos % (Auto) (0-4) % Baso % (Auto) (0-2) % Lymph # (Auto) (1.2-4.9) X10*3/uL [place] # (Auto) (0.1-1.2) X10*3/uL Eos # (Auto) (0.0-0.4) X10*3/uL Baso # (Auto) (0.0-0.2) X10*3/uL Abs Immat Gran (auto) (0.00-0.03) X10*3/uL Absolute Neuts (auto) (2.0-8.3) x10*3/uL Absolute Nucleated RBC (0.0-0.012) X10*3/uL Nucleated RBC % (auto) (0.0-0.2) /100WBC Sodium 139 (135-145) mmol/L Potassium 4.0 (3.3-5.1) mmol/L Chloride 104 (96-108) mmol/L Carbon Dioxide 26 (22-29) mmol/L Anion Gap 13 (12-20) BUN 15 (9-16) mg/dL Creatinine 0.93 (0.5-1.4) mg/dL Estim Creat Clear Calc 76.1 Estimated GFR > 60 Random Glucose 101 (60-115) mg/dL Calcium 9.1 D (8.4-10.2) mg/dL Magnesium (1.6-2.6) mg/dL Total Bilirubin 0.4 (0.0-1.0) mg/dL AST 46 H (5-37) U/L ALT 29 (0-40) U/L Alkaline Phosphatase 69 (39-117) U/L Troponin I High Sens 2.8 (<3.5-35.0) ng/L Total Protein 6.7 (6.5-8.0) g/dL Albumin 3.8 (3.5-5.0) g/dL Salicylates < 5.0 L (15-30) mg/dL Acetaminophen < 17 (<30) mcg/mL Ethyl Alcohol < 10 mg/dL COVID-19 ([facility]) Negative (Negative) COVID-19 Clin Com See Note 11/11/22 11/11/22 Range/Units 14:36 14:36 WBC 9.1 (4.8-10.8) X10*3/uL RBC 4.08 L (4.60-5.80) X10*6/uL Hgb 12.1 L (14.0-18.0) g/dl Hct 37.2 L (42.0-52.0) % MCV 91.2 (80.0-98.0) fL MCH 29.7 (27.0-33.0) pg MCHC 32.5 (31.0-36.0) g/dl RDW 13.2 (11.0-16.0) % Plt Count 266 D (160-400) X10*3/uL MPV 8.6 L (9.4-12.4) fL Immature Gran % (Auto) 0.2 (0.0-0.4) % Neut % (Auto) 80.9 H (45-73) % Lymph % (Auto) 13.7 L (20-40) % [place] % (Auto) 4.3 (2-11) % Eos % (Auto) 0.3 (0-4) % Baso % (Auto) 0.6 (0-2) % Lymph # (Auto) 1.2 (1.2-4.9) X10*3/uL [place] # (Auto) 0.4 (0.1-1.2) X10*3/uL Eos # (Auto) 0.0 (0.0-0.4) X10*3/uL Baso # (Auto) 0.1 (0.0-0.2) X10*3/uL Abs Immat Gran (auto) 0.02 (0.00-0.03) X10*3/uL Absolute Neuts (auto) 7.3 (2.0-8.3) x10*3/uL Absolute Nucleated RBC 0.000 (0.0-0.012) X10*3/uL Nucleated RBC % (auto) 0.0 (0.0-0.2) /100WBC Sodium (135-145) mmol/L Potassium (3.3-5.1) mmol/L Chloride (96-108) mmol/L Carbon Dioxide (22-29) mmol/L Anion Gap (12-20) BUN (9-16) mg/dL Creatinine (0.5-1.4) mg/dL Estim Creat Clear Calc Estimated GFR Random Glucose (60-115) mg/dL Calcium (8.4-10.2) mg/dL Magnesium 2.3 (1.6-2.6) mg/dL Total Bilirubin (0.0-1.0) mg/dL AST (5-37) U/L ALT (0-40) U/L Alkaline Phosphatase (39-117) U/L Troponin I High Sens (<3.5-35.0) ng/L Total Protein (6.5-8.0) g/dL Albumin (3.5-5.0) g/dL Salicylates (15-30) mg/dL Acetaminophen (<30) mcg/mL Ethyl Alcohol mg/dL COVID-19 ([facility]) (Negative) COVID-19 Clin Com Independent Interpretation I performed an independent interpretation of an: EKG Interpretation: Vent. Rate: 073 BPM ? ? Atrial Rate: 073 BPM P-R Int: 144 ms? QRS Dur: 092 ms QT Int: 450 ms ? ? ? P-R-T Axes: 020 017 029 degrees QTc Int: 495 ms ? Normal sinus rhythm with sinus arrhythmia Prolonged QT Abnormal ECG When compared with ECG of 11-JAN-2022 11:19, No significant change was found ? Electronically Signed By:Carmine Wharton Dictated By: Carmine Wharton MD Signed By: Electronically signed by Carmine Wharton MD 11/12/22 [id number] Independent Historian Clinical information obtained from an independent historian. History obtained from or confirmed by: EMS (EMS provided history and confirmed the history the patient provided.) Chronic Conditions Patient?s care impacted by: Other (drug use / abuse) Discharge Plan Discharge Clinical Impression: Polysubstance abuse Patient Disposition: Home, Self-Care Instructions: Polysubstance Abuse (ED) Additional Instructions: You are to present to ATS from the community. A referral has been sent to [facility] on your behalf. Please abstain from illegal drug use. Follow up with your primary care provider. Return to the emergency department immediately if your symptoms worsen or if you develop any dizziness, shortness of breath, difficulty breathing, chest pain, blurry vision, loss of vision, nausea, vomiting, abdominal pain, fever, chills, back pain, or any other complaints. Prescriptions: New hydroxyzine HCl 25 mg tablet 25 mg PO QID PRN (Reason: itching) Qty: 7 0RF No Action buprenorphine-naloxone 12-3 mg film 1 strip sublingual DAILY doxycycline monohydrate 100 mg tablet 100 mg PO BID Qty: 8 0RF cefpodoxime 200 mg tablet 200 mg PO BID Qty: 8 0RF Rx Instructions: must administer with a meal/food Referrals: [facility] [place] Family Medicine [Provider Group] (Call to establish and follow up with a primary care provider. If you already have a primary care provider, please follow up with them.) [facility] [place] Primary CareGregor [Provider Group] (Call to establish and follow up with a primary care provider. If you already have a primary care provider, please follow up with them.) [facility] [place] Primary CareKassie [Provider Group] (Call to establish and follow up with a primary care provider. If you already have a primary care provider, please follow up with them.) Interventions: ED Discharge Assessment Last Done: 11/11/22 16:05 Discharge Date/Time: 11/11/22 16:06 Print Language: [place] Citizen
--- NOTE | 2022-11-11 12:38 | ECG_ITS ---
Test Reason : DRUG USE Blood Pressure : / mmHG Vent. Rate : 073 BPM Atrial Rate : 073 BPM P-R Int : 144 ms QRS Dur : 092 ms QT Int : 450 ms P-R-T Axes : 020 017 029 degrees QTc Int : 495 ms Normal sinus rhythm with sinus arrhythmia Prolonged QT Abnormal ECG When compared with ECG of 11-JAN-2022 11:19, No significant change was found Referred By: Gilda Hdz Electronically Signed By:Carmine Wharton
[2022-11-11 12:41] VITALS: BP 132/70; PULSE 109; RESP 18; TEMP 36.7; O2SAT 97; BMI 24.7
[2022-11-11 14:41] LABS: MANUAL DIFF FLAG NO
[2022-11-11 14:44] LABS: Basophils Absolute Auto 0.1 X10*3/uL (0.0-0.2); Basophils Percent Auto 0.6 % (0-2); Eosinophils Percent Auto 0.3 % (0-4); Hematocrit 37.2 % (42.0-52.0); Hemoglobin 12.1 g/dl (14.0-18.0); Imm Gran Abs Auto 0.02 X10*3/uL (0.00-0.03); Imm Gran Pct Auto 0.2 % (0.0-0.4); Lymphocytes Absolute Auto 1.2 X10*3/uL (1.2-4.9); Lymphocytes Percent Auto 13.7 % (20-40); Mean Corpuscular HGB Conc 32.5 g/dl (31.0-36.0); Mean Corpuscular Hemoglobin 29.7 pg (27.0-33.0); Mean Corpuscular Volume 91.2 fL (80.0-98.0); Mean Platelet Volume 8.6 fL (9.4-12.4); Monocytes Absolute Auto 0.4 X10*3/uL (0.1-1.2); Monocytes Percent Auto 4.3 % (2-11); Neutrophils Absolute Auto 7.3 x10*3/uL (2.0-8.3); Neutrophils Percent Auto 80.9 % (45-73); Platelet Count 266 X10*3/uL (160-400); Red Blood Count 4.08 X10*6/uL (4.60-5.80); Red Cell Distribution Width 13.2 % (11.0-16.0); White Blood Count 9.1 X10*3/uL (4.8-10.8)
[2022-11-11 14:59] LABS: Acetaminophen LAB < 17 mcg/mL (<30); Alanine Aminotransferase 29 U/L (0-40); Albumin Level 3.8 g/dL (3.5-5.0); Alkaline Phosphatase 69 U/L (39-117); Anion Gap 13 (12-20); Aspartate Amino Transferase 46 U/L (5-37); Bilirubin Total 0.4 mg/dL (0.0-1.0); Blood Urea Nitrogen 15 mg/dL (9-16); COVID-19 Test Negative (Negative); Calcium 9.1 mg/dL (8.4-10.2); Carbon Dioxide 26 mmol/L (22-29); Chloride 104 mmol/L (96-108); Creatinine Clr Calc Pharmacy 76.1; Estimated Glomerular Filt Rate > 60; Ethanol < 10 mg/dL; Glucose Random 101 mg/dL (60-115); IDNOW Serial# BCCEAD1C; Salicylate < 5.0 mg/dL (15-30); Sodium 139 mmol/L (135-145); Total Protein 6.7 g/dL (6.5-8.0)
[2022-11-11 15:00] LABS: Magnesium 2.3 mg/dL (1.6-2.6)
--- NOTE | 2022-11-11 15:04 | MHC.RECOVSUP ---
Met with pt in ED22H who is here for JONH. [facility] and [facility] bed for him on 11/05 but he never presented. Informed pt and taht we sent over a new referral. Pt informs he is going home today and will present to them either tonight or tomorrow. Pt has been using about 5 bags of heroin and cocaine a day intravenously in addition to his 12mg Suboxone that he gets from his PCP. Pt is set to dc and present to ATS from the community. Provider aware.
[2022-11-11 15:07] LABS: Troponin-I High Sensitivity 2.8 ng/L (<3.5-35.0)
[2022-11-11] MEDS: Naloxone HCl Nasal TAKE HOME 4 MG SPRAY NOSTRILALT (15:24)
== END 2022-11-11 16:06 | disposition home or self-care (01) ==
PROVIDERS: Physician Assistant Medical; Emergency Provider Emergency Medicine
DX: F19.20 Other psychoactive substance dependence, uncomplicated (principal); Z20.822 Contact with and (suspected) exposure to COVID-19; F11.20 Opioid dependence, uncomplicated
CPT/HCPCS: 36415; 80053; 80143; 80179; 80307; 83735; 84484; 85025; 87635; 93005; 99283

== ENCOUNTER 2023-08-12 14:52 | Emergency (ER) | payer MEDICAID, SELFPAY ==
[2023-08-12] VITALS (13 sets, daily range): BP systolic 120–202; BP diastolic 68–175; PULSE 93–148; RESP 20–30; TEMP 36.7–36.8; O2SAT 93–100; BMI 27.3; BMI 24.2
--- NOTE | ~2023-08-12 | XR_ITS ---
EXAMINATION: XR CHEST CLINICAL INFORMATION: Tachypnea COMPARISON: 01/11/2022 TECHNIQUE: Frontal view of the chest was obtained. FINDINGS: Lung volumes are symmetric. No focal consolidation is seen. No evidence of pneumothorax, pleural effusion, or pulmonary edema. The cardiomediastinal contour is unremarkable. Chronic appearing changes at the bilateral glenohumeral joints. No acute osseous findings are seen. XR/XR chest 1V IMPRESSION: No acute cardiopulmonary findings.
--- NOTE | ~2023-08-12 | CT_ITS ---
EXAMINATION: NONCONTRAST HEAD CT NONCONTRAST CERVICAL SPINE CT INDICATION INFORMATION: Altered mental status, possible trauma COMPARISON: None TECHNIQUE: Separate noncontrast CT examinations of the head and cervical spine were performed. Coronal head CT images and coronal and sagittal cervical spine images were created at the technologist workstation. DLP: 1089 mGy-cm DOSE LOWERING TECHNIQUES: This CT examination was performed using dose optimization techniques as appropriate, variously including the following: - Automated exposure control - Adjustment of mA and/or kV according to patient size (this includes techniques or standardized protocols for targeted exams were dose is matched to indication/reason for exam; i.e. extremities or head) - Use of iterative reconstruction technique FINDINGS: Head: Limited evaluation in some regions due to motion artifact. There is no appreciable acute intracranial hemorrhage or territorial infarction. No abnormal mass-effect or midline shift is seen. Gomez to white matter differentiation is well preserved. No extra-axial fluid collections are identified. The ventricles are normal in size. There is no abnormal attenuation within the brain parenchyma. The osseous structures and soft tissues are normal. Partially opacified left mastoid air cells. The visualized portions of the paranasal sinuses are well-aerated. Cervical spine: There is bony ankylosis across the C2-C3 vertebral body and posterior elements as well as of C6-T1. There is disc space narrowing at C3-C4 and C5-C6 with associated endplate osteophytes. There appears to be malalignment of the right C4-C5 and C5-C6 facet articulations which has the appearance of jumped facets; this is age-indeterminate and may represent a chronic finding with no appreciable associated acute fracture. Alignment of the vertebral bodies appears maintained at these levels. No prevertebral soft tissue swelling. There is bony ankylosis across the posterior right first and second ribs. Visualized portions of the lung apices are grossly unremarkable. CT/CT cervical spine wo IV con IMPRESSION: HEAD: Limited evaluation due to motion artifact. No appreciable acute intracranial findings. CERVICAL SPINE: 1. Malalignment of the right C4-C5 and C5-C6 facet articulations, which has the appearance of jumped facets. This is age-indeterminate and may represent a chronic finding; however, acute ligamentous injury cannot be excluded and would be better assessed with MRI. No appreciable acute fracture. 2. Additional chronic appearing changes as noted above.
--- NOTE | 2023-08-12 15:31 | ED.GENADULT ---
HPI - General Adult General Chief complaint: ETOH/Substance Use Stated complaint: SUBSTANCE ABUSE Time Seen by Provider: 08/12/23 14:56 Source: patient and EMS Mode of arrival: EMS Limitations: other (Patient appears to be under the influence of drugs) History of Present Illness HPI narrative: 38-year-old male hx of polysubstance, spina bifida, scoliosis, anxiety presents for evaluation of bizarre behavior out on the street. Patient reports that he was told to come in to be evaluated by police or he would be arrested. Patient reports after a few months patient relapsed on heroin, he reports he has very stressed today having to drive somewhere with his entire family a little children. He reports he got overwhelmed and relapse. He has not suicidal or homicidal. No hallucinations. No falls or trauma. No medical complaints at this time. He is seeking to speak to somebody for recovery Related Data Home Medications Medication Instructions Recorded Confirmed buprenorphine 12 mg-naloxone 3 mg 1 strip sublingual DAILY 01/11/22 01/11/22 sublingual film Previous Rx's Medication Instructions Recorded cefpodoxime 200 mg tablet 200 mg PO BID #8 tabs 01/14/22 doxycycline monohydrate 100 mg 100 mg PO BID #8 tabs 01/14/22 tablet hydroxyzine HCl 25 mg tablet 25 mg PO QID PRN itching #7 tabs 11/11/22 Allergies Allergy/AdvReac Type Severity Reaction Status Date / Time azithromycin [From ZITHROMAX] Allergy Unknown HIVES Verified 01/12/22 09:43 amoxicillin [From AUGMENTIN] AdvReac Unknown STOMACH Verified 01/12/22 09:43 PAIN clavulanic acid AdvReac Unknown STOMACH Verified 01/12/22 09:43 [From AUGMENTIN] PAIN Review of Systems Review of Systems: Yes all other systems are reviewed and are negative PMFSH Past Medical History Attestation statement: The following information was validated with the patient. Source: old records reviewed and nursing notes reviewed Medical History Bilateral pulmonary infiltrates on chest x-ray Rhabdomyolysis Fever Acute renal failure Cocaine use disorder Social History Social History Household Members: Family Do you presently have visiting nurse or other home services: No Unable to assess alcohol history related to: Unable to respond Patient Tobacco Use Status: Tobacco use Unknown Substance Use Type: Crack/Cocaine and Opiates Advance Directives: No Advance Directives Information Provided: No service: No Current occupational status: unemployed Physical Exam ED Vital Signs: Vital Signs - 24 hr 08/12/23 15:09 08/12/23 19:30 08/12/23 20:47 Temperature 98.3 F 98.1 F Pulse Rate 120 H 93 148 H Respiratory Rate 22 H 20 30 H Blood Pressure 149/68 H Pulse Oximetry 93 100 100 Oxygen Delivery Method Room Air Room Air Room Air Oxygen Flow Rate 08/12/23 21:01 08/12/23 21:18 08/12/23 21:33 Temperature 98.0 F Pulse Rate 119 H 116 H 103 H Respiratory Rate 30 H 28 H 30 H Blood Pressure 170/96 H Pulse Oximetry 99 100 100 Oxygen Delivery Method Room Air Room Air Room Air Oxygen Flow Rate 08/12/23 21:49 08/12/23 22:10 08/12/23 22:15 Temperature Pulse Rate 110 H 100 115 H Respiratory Rate 26 H 25 H 24 H Blood Pressure 202/175 H 157/95 H 120/97 H Pulse Oximetry 96 95 98 Oxygen Delivery Method Room Air Room Air Room Air Oxygen Flow Rate 08/12/23 22:30 08/12/23 23:02 08/12/23 23:15 Temperature 98.3 F Pulse Rate 116 H 124 H 119 H Respiratory Rate 26 H 28 H 30 H Blood Pressure 142/88 H Pulse Oximetry 96 98 98 Oxygen Delivery Method Room Air Room Air Room Air Oxygen Flow Rate 08/12/23 23:30 08/13/23 00:00 08/13/23 00:30 Temperature Pulse Rate 120 H 113 H 117 H Respiratory Rate 26 H 28 H 26 H Blood Pressure 132/78 Pulse Oximetry 96 97 96 Oxygen Delivery Method Room Air Room Air Room Air Oxygen Flow Rate 08/13/23 00:45 08/13/23 01:24 08/13/23 01:46 Temperature 99.0 F 97.9 F Pulse Rate 112 H 115 H 109 H Respiratory Rate 24 H 22 H 20 Blood Pressure 128/99 H 147/77 H 150/97 H Pulse Oximetry 98 97 97 Oxygen Delivery Method Room Air Room Air Room Air Oxygen Flow Rate 08/13/23 02:26 08/13/23 02:56 08/13/23 03:07 Temperature 98.1 F 99.1 F 98.1 F Pulse Rate 91 114 H 98 Respiratory Rate 20 21 H 21 H Blood Pressure 136/91 H 156/89 H 150/87 H Pulse Oximetry 97 97 95 Oxygen Delivery Method Room Air Room Air Room Air Oxygen Flow Rate 08/13/23 03:26 08/13/23 03:57 08/13/23 04:04 Temperature 98.1 F 98.1 F 98.1 F Pulse Rate 94 92 90 Respiratory Rate 26 H 38 H 44 H Blood Pressure 160/86 H 125/77 119/80 Pulse Oximetry 96 96 94 Oxygen Delivery Method Room Air Room Air Room Air Oxygen Flow Rate 08/13/23 04:25 08/13/23 05:10 08/13/23 05:15 Temperature 98.1 F Pulse Rate 86 90 90 Respiratory Rate 44 H 41 H 35 H Blood Pressure 134/83 Pulse Oximetry 94 85 L 94 Oxygen Delivery Method Room Air Room Air Oxymask Oxygen Flow Rate 10 08/13/23 05:53 08/13/23 08:11 Temperature 97.7 F 97.9 F Pulse Rate 92 88 Respiratory Rate 40 H 36 H Blood Pressure 140/77 H 131/85 Pulse Oximetry 98 94 Oxygen Delivery Method Oxymask Room Air Oxygen Flow Rate BMI result Body Mass Index 24.2 vss Appearance: Alert.? Oriented X3.? No acute distress.? Head: Normocephalic, atraumatic, no step-offs or deformities Eyes: Pupils equal, round and reactive to light.? CVS: Normal heart rate and rhythm.? Pulses normal.? Respiratory: No respiratory distress.? Breath sounds normal.? Abdomen: Soft and nontender.? Skin: Skin warm and dry.? Normal skin color.? Normal skin turgor.? Extremities: No lower extremity edema.? No calf ttp. 5/5 strength to bilateral upper and lower extremities Neuro: Oriented X 3.? No motor deficit.? No sensory deficit. CN 2-12 intact Skin Other: Erythema to the left flank, mild hyperemia, easily blanching. No evidence of induration or streaking. No vesicles. Course Reevaluation(s) Reevaluation #1: Pendings labs, urine, care team. Sign out to Dustin. Time: 16:12 Reevaluation #2: 5:46 p.m. Patient continues to be agitated, refusing any treatment. He is reporting that he would like to take his Suboxone. He is prescribed 12 [address] out [address]. Patient states he last used 1 bag IV at approximately 11:30 p.m. last night, August 10. He also reports using cocaine. Denies any use prior to arrival. Patient states that he ?gets this way? when he is in withdrawal. The patient's family member at the bedside also confirms this. COWS at this time is 17. Confirmed his dose of Suboxone at prescription monitoring program of 12 mg. Wiill dose him 1st with 4 mg of Suboxone and reassess. 7:14 p.m. Patient initially agreeable to taking the Suboxone however only would accept a partial strip of it. Patient observed coughing and spitting, unclear if he had all medication. He continues to be Jumping around on stretcher. He did however say he would take the remaining Suboxone however once again would not take it properly and was spitting the medication out and coughing. Patient will be further sedated since he is noncompliant for his safety and the safety of others around him. Haldol/Ativan/Benadryl, Discussed with and seen by Dr. Pedro. 8:00 p.m. patient continues to be agitated and unable to be redirected. Additional medication will be provided. Discussed with Dr. Pedro who agrees with plan to add Haldol and Geodon. 8:45 p.m. patient continues to be agitated despite medications. Will trial ketamine. Patient continued to be observed, discussed with and seen by Dr. Pedro. Patient placed in restraints. 9:45 p.m. patient given additional lorazepam. Patient remains in four-point restraints for his safety and the safety of others on one-to-one observation. 10:30 p.m. patient continues to be observed. Maintaining airway. Patient continues to be agitated. 11:00 p.m. extensive discussion about possible admission given the patient's condition as well as rhabdomyolysis to the hospitalist team. Due to the fact that the patient remains quite agitated, he will continue to be medicated and observed. Continue IVF. No current ICU beds available at this time. Discussed with and seen by Dr. Fierro who will assume care. Time: 02:47 Reevaluation #3: I assumed care of this patient at change of shift. The patient is a 38-year-old male with persistent agitation after drug use. He has required restraints to keep himself safe and he has been given a great deal of sedatives to try to manage his agitation. The patient has been persistently tachycardic but otherwise hemodynamically stable. He has been maintaining good oxygenation. His has been in 4 point restraints but has good perfusion to his hands and feet. I asked for a urinary catheter to be placed in case urinary retention was causing him to be agitated but his agitation persisted despite placement of the catheter. Patient has labs showing elevated CPK consistent with rhabdomyolysis. Urine tox screen is positive for opioids, fentanyl, and cocaine. We have no ICU beds available for this patient and the patient is too agitated for admission to a non ICU setting. I have reauthorized ongoing restraints although we will try removing restraints in case the restraints are cause of agitation at this point. The patient is encephalopathic and does not respond to questions. Time: 04:42 Additional Reevaluation(s): Ultimately I felt that removing the patient from restraints might decrease his agitation. The patient was therefore removed from restraints. During the same period of time the patient has developed a significant tachypnea. His respiratory rate is in the 40s. The explanation for this increased respiratory rate is not entirely clear. He has not hypoxic. I ordered repeat labs and his venous blood gas shows pH of 7.56 with a pCO2 of 25. This is consistent with a respiratory alkalosis. 08:14 The patient was ultimately able to be removed from restraints but developed a bizarre tachypnea without worsening metabolic findings on repeat metabolic panel. He was breathing at 40 breaths a minute for a long time. Out of concern for the possibility of some kind of central cause for tachypnea I ordered a head CT and also a cervical spine CT as there was no way of ensuring he did not have any traumatic component to his presentation. The head CT is negative but this cervical spine CT shows malalignment of the right C4-C5 and C5-C6 facet articulations having the appearance of jumped facets. The radiologist could not be certain that this was either chronic or acute. Given that the patient can not be clinically evaluated because of the amount of sedation he has received I contacted [facility] and spoke to a member of the neurosurgical team who felt that the patient would need to be in a cervical collar until he could be clinically evaluated. Since we can not admit the patient requiring a cervical collar for a possible C-spine injury at this hospital I then spoke to the trauma team at [facility]. Dr. Moon will be accepting this patient to the emergency room as a trauma consult. The patient will be transferred to [facility] Emergency room by ambulance. The patient's tachypnea has improved mildly. He seems to localize discomfort. At this point I think the patient does not absolutely require endotracheal intubation and therefore I think it would be reasonable to send the patient without intubation. I spoke to Dr. Sawant of the emergency room and explained my thinking on this issue. The patient has a very short neck and we do not have an appropriately-sized cervical collar that fits the patient. The patient will therefore be placed in pads for cervical spine immobilization as best we can for the transfer. I spoke to the patient's and explained that he will be transferred to [facility]. She was amenable to this decision. Medications Administered Discontinued Medications Generic Name Dose Route Start Last Admin Trade Name Freq PRN Reason Stop Dose Admin Buprenorphine/Naloxone 1 film 08/12/23 17:38 08/12/23 18:00 Buprenorphine/Naloxone 4/1 Mg Film SUBLINGUAL 08/12/23 17:39 0.5 film ONCE ONE Administration Buprenorphine/Naloxone 1 film 08/12/23 18:48 08/12/23 19:09 Buprenorphine/Naloxone 12/3 Mg Film SUBLINGUAL 08/12/23 18:49 1 film ONCE ONE Administration Diazepam 10 mg 08/13/23 02:52 08/13/23 02:58 Diazepam 10 Mg/2 Ml Cartridge IVPUSH 08/13/23 02:53 10 mg STAT STA Administration Diazepam 10 mg 08/13/23 03:31 08/13/23 03:47 Diazepam 10 Mg/2 Ml Cartridge IVPUSH 08/13/23 03:32 10 mg STAT STA Administration Diphenhydramine HCl 25 mg 08/12/23 19:13 08/12/23 19:18 Diphenhydramine Hcl 50 Mg/Ml Vial IM 08/12/23 19:14 25 mg ONCE ONE Administration Haloperidol Lactate 5 mg 08/12/23 19:12 08/12/23 19:18 Haloperidol Lactate 5 Mg/Ml Vial IM 08/12/23 19:13 5 mg STAT STA Administration Haloperidol Lactate 5 mg 08/12/23 19:52 08/12/23 20:05 Haloperidol Lactate 5 Mg/Ml Vial IM 08/12/23 19:53 5 mg STAT STA Administration Sodium Chloride 1,000 mls @ 999 mls/hr 08/12/23 20:59 08/13/23 00:04 Ns IVCONT 08/12/23 21:59 Infused .Q1H1M ONE Infusion Sodium Chloride 1,000 mls @ 999 mls/hr 08/12/23 22:45 08/13/23 01:01 Ns IV 08/12/23 23:45 Infused .Q1H1M JD Infusion Lactated Ringer's 1,000 mls @ 999 mls/hr 08/13/23 02:15 08/13/23 06:29 Lr IV 08/13/23 03:15 Infused .Q1H1M JD Infusion Lactated Ringer's 1,000 mls @ 999 mls/hr 08/13/23 06:15 08/13/23 06:46 Lr IV 08/13/23 07:15 999 mls/hr .Q1H1M JD Administration Magnesium Sulfate 2 gm in 50 mls @ 150 mls/hr 08/13/23 07:39 08/13/23 08:00 Magnesium Sulfate/H2o IV 08/13/23 07:58 150 mls/hr ONCE ONE Administration Ketamine HCl 224.8 mg 08/12/23 20:42 08/12/23 20:48 Ketamine Hcl 500 Mg/5 Ml Vial 4 mg/kg (224.8 mg) 08/12/23 20:43 224.8 mg IM Administration ONCE ONE Lorazepam 2 mg 08/12/23 19:13 08/12/23 19:18 Lorazepam 2 Mg/Ml Vial IM 08/12/23 19:14 2 mg STAT STA Administration Lorazepam 2 mg 08/12/23 21:42 08/12/23 21:59 Lorazepam 2 Mg/Ml Vial IVPUSH 08/12/23 21:43 2 mg ONCE ONE Administration Lorazepam 2 mg 08/12/23 23:09 08/12/23 23:32 Lorazepam 2 Mg/Ml Vial IVPUSH 08/12/23 23:10 2 mg ONCE ONE Administration Lorazepam 2 mg 08/13/23 00:46 08/13/23 01:20 Lorazepam 2 Mg/Ml Vial IVPUSH 03/09/24 00:47 2 mg ONCE ONE Administration Lorazepam 2 mg 08/13/23 02:09 08/13/23 02:38 Lorazepam 2 Mg/Ml Vial IVPUSH 08/13/23 02:10 2 mg ONCE ONE Administration Morphine Sulfate 8 mg 08/12/23 23:23 08/12/23 23:32 Morphine Sulfate 10 Mg/Ml Cartridge IVPUSH 08/12/23 23:24 8 mg ONCE ONE Administration Protocol Ziprasidone 20 mg 08/12/23 19:54 08/12/23 20:05 Ziprasidone Mesylate 20 Mg Vial IM 08/12/23 19:55 20 mg ONCE ONE Administration Medical Decision Making Medical Decision Making MDM Narrative: 1537 38 year old M presents s/p relapsing on heroin. NO SI ior HI. PE patient w/ bizzare movements ( likely secondary to drugs) Hx and pe concerning for opiate use disorder and possible polysubstance abuse. Unlikely metabolic derangements. Unlikely schizophrenia, bipolar, no signs of intracranial hemorrhage, stroke posterior stroke, no signs of traumatic injury to head, neck, chest, abdomen or pelvis. No indication for imaging. Plan at this time will obtain basic labs medically clear patient and then have patient be seen by care team recovery. Will observe insure that he does not require Narcan for stabilization 0742: I have been made aware of the patient, ordered an EKG which demonstrated prolonged QT that is possibly reflective of treatment medications and will receive 2g MgSO4. Differential Diagnosis Differential Diagnoses: The differential diagnosis associated with the presentation includes Hx and pe concerning for opiate use disorder and possible polysubstance abuse. Unlikely metabolic derangements. Unlikely schizophrenia, bipolar, no signs of intracranial hemorrhage, stroke posterior stroke, no signs of traumatic injury to head, neck, chest, abdomen or pelvis. No indication for imaging. Admission/Observation Consideration of admission/observation: Escalation of care including admission/observation considered Unlikely Lab Data [facility] Lab Attestation statement: I reviewed the patient's lab results. 08/13/23 04:13 08/13/23 04:13 Labs: Lab Results 08/12/23 08/12/23 08/13/23 Range/Units 21:36 21:38 01:32 WBC 15.8 H (4.8-10.8) X10*3/uL RBC 4.36 L (4.60-5.80) X10*6/uL Hgb 13.6 L (14.0-18.0) g/dl Hct 39.0 L (42.0-52.0) % MCV 89.4 (80.0-98.0) fL MCH 31.2 (27.0-33.0) pg MCHC 34.9 (31.0-36.0) g/dl RDW 12.1 (11.0-16.0) % Plt Count 241 (160-400) X10*3/uL MPV 9.1 L (9.4-12.4) fL Immature Gran % (Auto) 0.4 (0.0-0.4) % Neut % (Auto) 81.6 H (45-73) % Lymph % (Auto) 9.6 L (20-40) % Wake % (Auto) 7.9 (2-11) % Eos % (Auto) 0.1 (0-4) % Baso % (Auto) 0.4 (0-2) % Lymph # (Auto) 1.5 (1.2-4.9) X10*3/uL Wake # (Auto) 1.3 H (0.1-1.2) X10*3/uL Eos # (Auto) 0.0 (0.0-0.4) X10*3/uL Baso # (Auto) 0.1 (0.0-0.2) X10*3/uL Abs Immat Gran (auto) 0.07 H (0.00-0.03) X10*3/uL Absolute Neuts (auto) 12.9 H (2.0-8.3) x10*3/uL Absolute Nucleated RBC 0.000 (0.0-0.012) X10*3/uL Nucleated RBC % (auto) 0.0 (0.0-0.2) /100WBC VBG pH (7.32-7.43) VBG pCO2 mmHg VBG pO2 mmHg VBG HCO3 (22-26) mmol/L VBG O2 Saturation % VBG Base Excess mmol/L Sodium 141 (135-145) mmol/L Potassium 3.8 (3.3-5.1) mmol/L Chloride 102 (96-108) mmol/L Carbon Dioxide 26 (22-29) mmol/L Anion Gap 17 (12-20) BUN 24 H (9-16) mg/dL Creatinine 0.83 (0.5-1.4) mg/dL Estim Creat Clear Calc 84.5 Estimated GFR > 60 Random Glucose 108 (60-115) mg/dL Calcium 9.2 (8.4-10.2) mg/dL Magnesium 1.8 1.9 (1.6-2.6) mg/dL Total Bilirubin 1.6 H (0.0-1.0) mg/dL Direct Bilirubin (0.0-0.5) mg/dL AST 233 H (5-37) U/L ALT 86 H (0-40) U/L Alkaline Phosphatase 76 (39-117) U/L Total Creatine Kinase 23434 H (38-174) U/L Troponin I High Sens < 2.7 (<3.5-35.0) ng/L Total Protein 6.9 (6.5-8.0) g/dL Albumin 4.0 (3.5-5.0) g/dL Urine Opiates Screen POSITIVE H (Not Detect) Urine Fentanyl Screen POSITIVE H (Not Detect) Ur Barbiturates Screen Not Detected (Not Detect) Ur Phencyclidine Scrn Not Detected (Not Detect) Ur Amphetamines Screen Not Detected (Not Detect) U Benzodiazepines Scrn Not Detected (Not Detect) Urine Cocaine Screen POSITIVE H (Not Detect) U Marijuana (THC) Screen POSITIVE H (Not Detect) Ethyl Alcohol < 10 mg/dL 08/13/23 08/13/23 Range/Units 04:13 04:14 WBC 12.3 H (4.8-10.8) X10*3/uL RBC 4.33 L (4.60-5.80) X10*6/uL Hgb 13.4 L (14.0-18.0) g/dl Hct 38.9 L (42.0-52.0) % MCV 89.8 (80.0-98.0) fL MCH 30.9 (27.0-33.0) pg MCHC 34.4 (31.0-36.0) g/dl RDW 12.2 (11.0-16.0) % Plt Count 229 (160-400) X10*3/uL MPV 9.1 L (9.4-12.4) fL Immature Gran % (Auto) 0.4 (0.0-0.4) % Neut % (Auto) 82.0 H (45-73) % Lymph % (Auto) 10.9 L (20-40) % Wake % (Auto) 6.0 (2-11) % Eos % (Auto) 0.5 (0-4) % Baso % (Auto) 0.2 (0-2) % Lymph # (Auto) 1.3 (1.2-4.9) X10*3/uL Wake # (Auto) 0.7 (0.1-1.2) X10*3/uL Eos # (Auto) 0.1 (0.0-0.4) X10*3/uL Baso # (Auto) 0.0 (0.0-0.2) X10*3/uL Abs Immat Gran (auto) 0.05 H (0.00-0.03) X10*3/uL Absolute Neuts (auto) 10.1 H (2.0-8.3) x10*3/uL Absolute Nucleated RBC 0.000 (0.0-0.012) X10*3/uL Nucleated RBC % (auto) 0.0 (0.0-0.2) /100WBC VBG pH 7.56 H (7.32-7.43) VBG pCO2 25 mmHg VBG pO2 83 mmHg VBG HCO3 22 (22-26) mmol/L VBG O2 Saturation 99.0 % VBG Base Excess 1.8 mmol/L Sodium 141 (135-145) mmol/L Potassium 4.0 (3.3-5.1) mmol/L Chloride 110 H (96-108) mmol/L Carbon Dioxide 21 L (22-29) mmol/L Anion Gap 14 (12-20) BUN 21 H (9-16) mg/dL Creatinine 0.70 (0.5-1.4) mg/dL Estim Creat Clear Calc 100.1 Estimated GFR > 60 Random Glucose 104 (60-115) mg/dL Calcium 8.3 L D (8.4-10.2) mg/dL Magnesium 2.0 (1.6-2.6) mg/dL Total Bilirubin 1.4 H (0.0-1.0) mg/dL Direct Bilirubin 0.6 H (0.0-0.5) mg/dL AST 242 H (5-37) U/L ALT 86 H (0-40) U/L Alkaline Phosphatase 68 (39-117) U/L Total Creatine Kinase 10852 H (38-174) U/L Troponin I High Sens (<3.5-35.0) ng/L Total Protein 6.1 L (6.5-8.0) g/dL Albumin 3.5 (3.5-5.0) g/dL Urine Opiates Screen (Not Detect) Urine Fentanyl Screen (Not Detect) Ur Barbiturates Screen (Not Detect) Ur Phencyclidine Scrn (Not Detect) Ur Amphetamines Screen (Not Detect) U Benzodiazepines Scrn (Not Detect) Urine Cocaine Screen (Not Detect) U Marijuana (THC) Screen (Not Detect) Ethyl Alcohol mg/dL Independent Interpretation I performed an independent interpretation of an: EKG Interpretation: Normal sinus rhythm, HR-89, no STEMI, ID/QRS are within normal limits in QT/QTC are prolonged. Independent Historian Clinical information obtained from an independent historian. History obtained from or confirmed by: EMS External Record Review External record reviewed: Inpatient record, Office record, Outpatient record, Prior outpatient labs, Prior outpatient radiology, Primary care record and Outside ED record Chronic Conditions Patient?s care impacted by: Other (polysubstance, spina bifida, scoliosis, anxiety ) Social Determinants Patient?s care significantly limited by Social Determinants of Health including: Inadequate housing, Low income, Alcoholism and drug addiction in family, Problems related to primary support group, Unemployment, Problems related to employment and Other Social Determinant of Health Scores Additional Scores COWS: Score: 17 Comment: COWS Score for Opiate Withdrawal from [facility] on 08/12/2023 All calculations should be rechecked by clinician prior to use RESULT SUMMARY: 17 points Moderate withdrawal INPUTS: Resting Pulse Rate (BPM) ?> 2 = 101-120 Sweating ?> 2 = Flushed or observable moistness on face Restlessness observation during assessment ?> 5 = Unable to sit still for more than a few seconds Pupil size ?> 1 = Pupils possibly larger than normal for room light Bone or joint aches ?> 1 = Mild diffuse discomfort Runny nose or tearing ?> 0 = Not present GI Upset ?> 1 = Stomach Cramps Tremor observation of outstretched hands ?> 1 = Tremor can be felt, but not observed Yawning observation during assessment ?> 0 = No yawning Anxiety or irritability ?> 4 = Patient so irritable or anxious that participation in the assessment is difficult Gooseflesh skin ?> 0 = Skin is smooth Critical Care Time Critical Care Time Critical Care Time: Yes Total Critical Care Time: 120 Attestation: The patient was critically ill with a high probability of imminent or life-threatening deterioration. ?I spent greater than 30 minutes of discontinuous time evaluating the patient, delivering critical care at the bedside, discussing evaluating data with consultants. ?Critical care time does not include time spent performing separately billable procedures or teaching. ?Time spent performing critical care with 120 minutes. Discharge Plan Discharge Clinical Impression: Opioid use disorder, Metabolic encephalopathy Patient Disposition: Xfer [facility] Hospital Transfer Details: Cervical spine findings that require escalation of care and specialty services Prescriptions: No Action buprenorphine-naloxone 12-3 mg film 1 strip sublingual DAILY doxycycline monohydrate 100 mg tablet 100 mg PO BID Qty: 8 0RF cefpodoxime 200 mg tablet 200 mg PO BID Qty: 8 0RF Rx Instructions: must administer with a meal/food hydroxyzine HCl 25 mg tablet 25 mg PO QID PRN (Reason: itching) Qty: 7 0RF
--- NOTE | 2023-08-12 16:01 | PC.NURSE ---
pt increasingly agitated/refusing to cooperate w/ staff. security called. belongings placed in decon. pt unable to remain still at this time. pt verbalizing he is feeling extremely anxious but denies the offer of medication administration. friend bedside for support. plan of care ongoing.
--- NOTE | 2023-08-12 16:46 | MHC.EDTECH ---
This pct attempted to draw labs but the patient refused and can not keep his composure patient is very antsy, RN Aware
--- NOTE | 2023-08-12 17:33 | PC.NURSE ---
pt thrashing body around hallway. unable to keep body still. pt pacing back and forth. pt refusing to provide urine sample/for labs to be drawn. ED provider notified/aware. plan of care ongoing.
--- NOTE | 2023-08-12 17:58 | PC.NURSE ---
pt continues to remain agitated/throwing his body around. continuously pacing back and forth. security bedside. suboxone administered per provider order. effectiveness pending.
[2023-08-12] MEDS: Buprenorphine/Naloxone 4/1 mg FILM 1 FILM SUBLINGUAL (18:00)
--- NOTE | 2023-08-12 18:03 | PC.NURSE ---
pt refusing for entire suboxone administration. 0.5mg of the film administered. ED provider notified/aware. security bedside for safety precautions as pt continues to be agitated/restless.
[2023-08-12] MEDS: Buprenorphine/Naloxone 12/3 mg FILM 1 FILM SUBLINGUAL (19:09)
[2023-08-12] MEDS: LORazepam 2 MG/ML VIAL IM (19:18)
[2023-08-12] MEDS: diphenhydrAMINE HCL 50 MG/ML VIAL 25 MG IM (19:18)
[2023-08-12] MEDS: Haloperidol Lactate 5 MG/ML VIAL IM ×2 (19:18→20:05)
[2023-08-12] MEDS: Ziprasidone Mesylate 20 MG VIAL IM (20:05)
[2023-08-12] MEDS: Ketamine HCl 500 MG/5 ML VIAL 224.8 MG IM (20:48)
--- NOTE | 2023-08-12 20:57 | MHC.EDTECH ---
This tech took over care of patient at 1900,patient is very agitated and jumping on the bed and kicking the wall,provider,nurse,and security at bedside.
--- NOTE | 2023-08-12 21:05 | PC.NURSE ---
this rn assumed care of pt @ 191. pt non compliant and non redirectable. @ 1917 pt given benadryl, haldol, and ativan im after standing on stretcher and jumping off into hallway, pt unsafe to self and others. @2004 pt medicated with geodon and haldol im after becoming repeatedly self abusive banging legs and feet into side rails and wall next to 6h bed. pt not redirectable
--- NOTE | 2023-08-12 21:40 | MHC.EDTECH ---
Labs were delayed due to patient being agitated and thrashing, This tech was able to obtained at this time,security and RN at bedside
[2023-08-12 21:44] LABS: MANUAL DIFF FLAG NO
[2023-08-12 21:45] LABS: Basophils Absolute Auto 0.1 X10*3/uL (0.0-0.2); Basophils Percent Auto 0.4 % (0-2); Eosinophils Percent Auto 0.1 % (0-4); Hemoglobin 13.6 g/dl (14.0-18.0); Imm Gran Abs Auto 0.07 X10*3/uL (0.00-0.03); Imm Gran Pct Auto 0.4 % (0.0-0.4); Lymphocytes Absolute Auto 1.5 X10*3/uL (1.2-4.9); Lymphocytes Percent Auto 9.6 % (20-40); Mean Corpuscular HGB Conc 34.9 g/dl (31.0-36.0); Mean Corpuscular Hemoglobin 31.2 pg (27.0-33.0); Mean Corpuscular Volume 89.4 fL (80.0-98.0); Mean Platelet Volume 9.1 fL (9.4-12.4); Monocytes Absolute Auto 1.3 X10*3/uL (0.1-1.2); Monocytes Percent Auto 7.9 % (2-11); Neutrophils Absolute Auto 12.9 x10*3/uL (2.0-8.3); Neutrophils Percent Auto 81.6 % (45-73); Platelet Count 241 X10*3/uL (160-400); Red Blood Count 4.36 X10*6/uL (4.60-5.80); Red Cell Distribution Width 12.1 % (11.0-16.0); White Blood Count 15.8 X10*3/uL (4.8-10.8)
--- NOTE | 2023-08-12 21:50 | PC.NURSE ---
@ 2047 pt given IM Ketamine 224.8mg weight based dose and placed in 4 point restraints. pt thrashing legs causing self harm, spitting, continues to exit bed with unsteady gait. Catalina borges RT, UZMA, charge auditor, and security at bedside during ketamine administration. pt maintained spo2 100% RA during administration
[2023-08-12] MEDS: LORazepam 2 MG/ML VIAL IVPUSH ×2 (21:59→23:32)
[2023-08-12] MEDS: 0.9 % Sodium Chloride 1,000 ML 999 ML IVCONT (21:59)
[2023-08-12 22:06] LABS: Alanine Aminotransferase 86 U/L (0-40); Alkaline Phosphatase 76 U/L (39-117); Anion Gap 17 (12-20); Aspartate Amino Transferase 233 U/L (5-37); Bilirubin Total 1.6 mg/dL (0.0-1.0); Blood Urea Nitrogen 24 mg/dL (9-16); Calcium 9.2 mg/dL (8.4-10.2); Carbon Dioxide 26 mmol/L (22-29); Chloride 102 mmol/L (96-108); Creatinine Clr Calc Pharmacy 84.5; Estimated Glomerular Filt Rate > 60; Ethanol < 10 mg/dL; Glucose Random 108 mg/dL (60-115); Magnesium 1.9 mg/dL (1.6-2.6); Potassium 3.8 mmol/L (3.3-5.1); Sodium 141 mmol/L (135-145); Total Protein 6.9 g/dL (6.5-8.0)
[2023-08-12 22:06] LABS: Magnesium 1.8 mg/dL (1.6-2.6)
[2023-08-12 22:11] LABS: Troponin-I High Sensitivity < 2.7 ng/L (<3.5-35.0)
[2023-08-12] MEDS: Morphine Sulfate 10 MG/ML CARTRIDGE 8 MG IVPUSH (23:32)
[2023-08-12] MEDS: 0.9 % Sodium Chloride 1,000 ML 999 ML IV (23:34)
[2023-08-13] VITALS (17 sets, daily range): BP systolic 119–160; BP diastolic 77–99; PULSE 86–117; RESP 20–44; TEMP 36.5–37.3; O2SAT 85–99
--- NOTE | 2023-08-13 00:23 | MHC.EDTECH ---
Patient was bladder scanned,245MLS per doctor's request,RN aware
[2023-08-13] MEDS: LORazepam 2 MG/ML VIAL IVPUSH ×2 (01:20→02:38)
--- NOTE | 2023-08-13 01:30 | PC.NURSE ---
unable to scan ativan barcode due to disposal of vial prior to scanning administration @ 0120. German CALDERÓN present @ time of administration
--- NOTE | 2023-08-13 01:33 | MHC.EDTECH ---
Hourly rounds and vitals completed,assisted STEPHANE Porter with a temp sensing [place],urine sample collected and sent to lab. Patient was incont. of a moderate amount of liq. stool,mady-care giving and bed linen changed,Patient is thrashing and unsafe to self,1-1 sitter at bedside for safety.
[2023-08-13 01:45] LABS: Amphetamine Screen Urine Not Detected (Not Detect); Barbiturates, Urine Not Detected (Not Detect); Benzodiazepines Screen Urine Not Detected (Not Detect); Cannabinoid Screen Urine POSITIVE (Not Detect); Cocaine Screen Urine POSITIVE (Not Detect); Fentanyl, urine POSITIVE (Not Detect); Opiate Screen Urine POSITIVE (Not Detect); Phencyclidine Screen Urine Not Detected (Not Detect)
[2023-08-13] MEDS: Lactated Ringers 1,000 ML 999 ML IV ×2 (02:41→06:46)
--- NOTE | 2023-08-13 02:57 | MHC.EDTECH ---
Hourly rounds and vitals completed,patient is thrashing and very restless, 1-1 sitter at bedside for safety
[2023-08-13] MEDS: diazePAM 10 MG/2 ML CARTRIDGE IVPUSH ×2 (02:58→03:47)
[2023-08-13 04:18] LABS: MANUAL DIFF FLAG NO
[2023-08-13 04:19] LABS: Basophils Percent Auto 0.2 % (0-2); Eosinophils Absolute Auto 0.1 X10*3/uL (0.0-0.4); Eosinophils Percent Auto 0.5 % (0-4); Hematocrit 38.9 % (42.0-52.0); Hemoglobin 13.4 g/dl (14.0-18.0); Imm Gran Abs Auto 0.05 X10*3/uL (0.00-0.03); Imm Gran Pct Auto 0.4 % (0.0-0.4); Lymphocytes Absolute Auto 1.3 X10*3/uL (1.2-4.9); Lymphocytes Percent Auto 10.9 % (20-40); Mean Corpuscular HGB Conc 34.4 g/dl (31.0-36.0); Mean Corpuscular Hemoglobin 30.9 pg (27.0-33.0); Mean Corpuscular Volume 89.8 fL (80.0-98.0); Mean Platelet Volume 9.1 fL (9.4-12.4); Monocytes Absolute Auto 0.7 X10*3/uL (0.1-1.2); Neutrophils Absolute Auto 10.1 x10*3/uL (2.0-8.3); Platelet Count 229 X10*3/uL (160-400); Red Blood Count 4.33 X10*6/uL (4.60-5.80); Red Cell Distribution Width 12.2 % (11.0-16.0); White Blood Count 12.3 X10*3/uL (4.8-10.8)
[2023-08-13 04:21] LABS: VBG Base Excess 1.8 mmol/L; VBG HCO3 22 mmol/L (22-26); VBG pCO2 25 mmHg; VBG pH 7.56 (7.32-7.43); VBG pO2 83 mmHg
[2023-08-13 04:22] LABS: Venous Blood Gas Refer to POC result
--- NOTE | 2023-08-13 04:30 | PC.NURSE ---
@ 0245 L foot removed from restraint @0255 L foot placed back in restraint due to pt attempting to self remove woodall cath with foot @0417 RA,LA,LL,RL removed from restraint pt remains 1:1 sitter
--- NOTE | 2023-08-13 04:32 | MHC.EDTECH ---
Labs were obtained and sent to lab,hourly rounds and vitals completed Resp.rate is elevated,doctor and RN are aware and are at bedside. Patient is resting at this time.
[2023-08-13 04:46] LABS: Alanine Aminotransferase 86 U/L (0-40); Albumin Level 3.5 g/dL (3.5-5.0); Alkaline Phosphatase 68 U/L (39-117); Anion Gap 14 (12-20); Aspartate Amino Transferase 242 U/L (5-37); Bilirubin Direct 0.6 mg/dL (0.0-0.5); Bilirubin Total 1.4 mg/dL (0.0-1.0); Blood Urea Nitrogen 21 mg/dL (9-16); Calcium 8.3 mg/dL (8.4-10.2); Carbon Dioxide 21 mmol/L (22-29); Chloride 110 mmol/L (96-108); Creatinine Clr Calc Pharmacy 100.1; Estimated Glomerular Filt Rate > 60; Glucose Random 104 mg/dL (60-115); Sodium 141 mmol/L (135-145); Total Protein 6.1 g/dL (6.5-8.0)
--- NOTE | 2023-08-13 05:20 | PC.NURSE ---
pt desat to 85% RA this rn made dr liu aware pt placed on NC 2-4 lpm. ptdid not recover past 87% per md placed pt on oxymask @ 10lpm
--- NOTE | 2023-08-13 05:26 | MHC.EDTECH ---
Patient brought to CT-Scan @ this time,Emptied L[place]is 575MLS of tea color urine
--- NOTE | 2023-08-13 06:08 | MHC.EDTECH ---
Hourly rounds and vitals completed,patient is resting at this time 1-1 sitter at bedside for safety
--- NOTE | 2023-08-13 07:26 | ECG_ITS ---
Test Reason : AMS Blood Pressure : / mmHG Vent. Rate : 089 BPM Atrial Rate : 089 BPM P-R Int : 136 ms QRS Dur : 084 ms QT Int : 414 ms P-R-T Axes : 057 012 034 degrees QTc Int : 503 ms Normal sinus rhythm Minimal voltage criteria for LVH, may be normal variant ( Sokolow-Bland ) Prolonged QT Abnormal ECG When compared with ECG of 11-NOV-2022 13:57, No significant change was found Referred By: Eleanor Harrison Electronically Signed By:MASON LOW MD
[2023-08-13] MEDS: Magnesium Sulfate/H2O 2 GM/50 ML PIGGYBACK IV (08:00)
--- NOTE | 2023-08-13 08:00 | PC.NURSE ---
Assumed care at 0700, on initial assessment pt tachypneic in 40s shallow with frothy sputum in mouth, orally suctioned. Dr Harrison and Dr Fierro to bedside with this RN for assessment plan. Pt moving with noxious stimuli only, attempted nasal trumpet however pt moving and thrashing and unable to place. Second IV established 20g right wrist. EKG obtained. [place] patent with cloudy yellow urine in tubing and bag noted. Unable to place collar d/t pt anatomy, blankets placed to support C spine. 02 applied at 2lpm via nc with sat 98%. 1:1 pt observer at bedside with pt. Core temp 97.9. Mag started for prolonged QT and LR continues to infuse.
--- NOTE | 2023-08-13 08:26 | PC.NURSE ---
Plan for [facility] ER transfer
--- NOTE | 2023-08-13 09:24 | PC.NURSE ---
reoprt given to EMS for transport
--- NOTE | 2023-08-13 09:39 | PC.NURSE ---
Attempted to call [facility] x 3 without success to speak to RN for nurse to nurse as no one answered.
[2023-08-13 09:45] LABS: Alanine Aminotransferase 79 U/L (0-40); Albumin Level 3.4 g/dL (3.5-5.0); Alkaline Phosphatase 65 U/L (39-117); Anion Gap 11 (12-20); Aspartate Amino Transferase 199 U/L (5-37); Bilirubin Total 1.3 mg/dL (0.0-1.0); Blood Urea Nitrogen 18 mg/dL (9-16); Calcium 8.3 mg/dL (8.4-10.2); Carbon Dioxide 24 mmol/L (22-29); Chloride 110 mmol/L (96-108); Creatinine Clr Calc Pharmacy 94.7; Estimated Glomerular Filt Rate > 60; Glucose Random 106 mg/dL (60-115); Sodium 141 mmol/L (135-145); Total Protein 5.8 g/dL (6.5-8.0)
[2023-08-13 10:21] LABS: Acetaminophen LAB < 3 mcg/mL (<30); Salicylate < 5.0 mg/dL (15-30)
== END 2023-08-13 09:40 | disposition short-term general hospital (02) ==
PROVIDERS: Emergency Medicine; Physician Assistant; Emergency Provider Student in an Organized Health Care Education/Training Program
DX: G93.41 Metabolic encephalopathy (principal); F11.20 Opioid dependence, uncomplicated; F14.90 Cocaine use, unspecified, uncomplicated; R45.1 Restlessness and agitation; R33.9 Retention of urine, unspecified; R06.82 Tachypnea, not elsewhere classified; M53.2X2 Spinal instabilities, cervical region
CPT/HCPCS: 36415; 51702; 70450; 71045; 72125; 80048; 80053; 80076; 80143; 80179; 80307; 82550; 82803; 83735; 84484; 85025; 93005; 96361; 96365; 96366; 96372; 96375; 96376; 99285; J1200; J1630; J2060; J2270; J3360; J3475; J3486; J7120

== ENCOUNTER → 2023-08-13 07:26 | Outpatient (BNV) | payer MEDICAID, SELFPAY | PROVIDERS: Emergency Provider Student in an Organized Health Care Education/Training Program; Visit Provider Internal Medicine Cardiovascular Disease | DX: I45.81 Long QT syndrome (principal) | CPT/HCPCS: 93010 ==

== ENCOUNTER 2024-01-18 21:19 | Emergency (ER) | payer OTHER, SELFPAY ==
--- NOTE | 2024-01-18 | ECG_ITS ---
Test Reason : OVERDOSE Blood Pressure : / mmHG Vent. Rate : 102 BPM Atrial Rate : 102 BPM P-R Int : 138 ms QRS Dur : 088 ms QT Int : 376 ms P-R-T Axes : 048 008 048 degrees QTc Int : 490 ms Sinus tachycardia Moderate voltage criteria for LVH, may be normal variant ( Sokolow-Bland , Jim product ) Abnormal ECG When compared with ECG of 13-AUG-2023 07:32, ST elevation now present in Anterior leads Nonspecific T wave abnormality no longer evident in Anterior leads Heart rate has increased Referred By: Generic ED Physician Electronically Signed By:JUAN SANDERS
[2024-01-18 21:32] VITALS: BP 151/88; PULSE 117; RESP 16; TEMP 37.8; O2SAT 93
[2024-01-18 21:36] VITALS: PULSE 135; O2SAT 97; BMI 24.4
--- NOTE | 2024-01-18 21:55 | MHC.EDTECH ---
This tech attempted to obtain urine sample from patient. Walked patient to the bathroom, stood by for observation. Patient stated I dropped the cup in the toilet. Patient put cup in trash. This tech assisted patient back to room/bed. Provided call bui. All needs met.
[2024-01-18 22:44] LABS: MANUAL DIFF FLAG NO
[2024-01-18 22:48] LABS: Basophils Absolute Auto 0.1 X10*3/uL (0.0-0.2); Basophils Percent Auto 0.2 % (0-2); Eosinophils Percent Auto 0.1 % (0-4); Hematocrit 38.9 % (42.0-52.0); Hemoglobin 13.8 g/dl (14.0-18.0); Imm Gran Abs Auto 0.07 X10*3/uL (0.00-0.03); Imm Gran Pct Auto 0.3 % (0.0-0.4); Lymphocytes Absolute Auto 1.3 X10*3/uL (1.2-4.9); Lymphocytes Percent Auto 6.1 % (20-40); Mean Corpuscular HGB Conc 35.5 g/dl (31.0-36.0); Mean Corpuscular Hemoglobin 31.6 pg (27.0-33.0); Mean Platelet Volume 8.8 fL (9.4-12.4); Monocytes Absolute Auto 0.1 X10*3/uL (0.1-1.2); Monocytes Percent Auto 0.5 % (2-11); Neutrophils Absolute Auto 18.9 x10*3/uL (2.0-8.3); Neutrophils Percent Auto 92.8 % (45-73); Platelet Count 291 X10*3/uL (160-400); Red Blood Count 4.37 X10*6/uL (4.60-5.80); Red Cell Distribution Width 12.8 % (11.0-16.0); SCAN SMEAR FLAG 1; White Blood Count 20.4 X10*3/uL (4.8-10.8)
--- NOTE | 2024-01-18 22:51 | ED_ITS ---
HPI - General Adult General Chief complaint: ETOH/Substance Use Stated complaint: RECENT EROINE USE, HR 135, UPPER EXTREMITY EDEMA Time Seen by Provider: 01/18/24 22:43 Source: patient and EMS Mode of arrival: EMS Limitations: no limitations History of Present Illness ED Provider: Dr. Maria Eugenia Pedro HPI narrative: Patient comes to the emergency room by ambulance. Patient was found walking in the street and stumbling by PD. Patient reports injecting heroin. Patient denies SI or HI. Patient states that he already is in the process of calling detox places in [facility]. Patient's at bedside states that they did not have a bed today but they were asked to call tomorrow at 08:30 in the morning. Patient denies SI or HI. Patient denies any injuries. Related Data Home Medications ?Medication ?Instructions ?Recorded ?Confirmed buprenorphine 12 mg-naloxone 3 mg 1 strip sublingual DAILY 01/11/22 01/11/22 sublingual film Previous Rx's ?Medication ?Instructions ?Recorded cefpodoxime 200 mg tablet 200 mg PO BID #8 tabs 01/14/22 doxycycline monohydrate 100 mg 100 mg PO BID #8 tabs 01/14/22 tablet hydroxyzine HCl 25 mg tablet 25 mg PO QID PRN itching #7 tabs 11/11/22 sulfamethoxazole 800 1 tab PO BID #20 tabs 01/18/24 mg-trimethoprim 160 mg tablet (Bactrim DS) Allergies Allergy/AdvReac Type Severity Reaction Status Date / Time azithromycin [From ZITHROMAX] Allergy Unknown HIVES Verified 01/18/24 21:38 amoxicillin [From AUGMENTIN] AdvReac Unknown STOMACH Verified 01/18/24 21:38 PAIN clavulanic acid AdvReac Unknown STOMACH Verified 01/18/24 21:38 [From AUGMENTIN] PAIN morphine AdvReac Unknown Verified 01/18/24 21:38 Review of Systems 2 Review of Systems: Constitutional : No Weight loss, No Fever, No Chills, No Night Sweats, No Fatigue, No Malaise ENT/Mouth : No Hearing loss, No Ear Pain, No Nasal Congestion, No Sinus Pain, No Hoarseness, No sore throat, No Rhinorrhea, No Swallowing Difficulty Eyes: No Eye Pain, No Swelling, No Redness, No Foreign Body, No Discharge, No Vision Changes Cardiovascular : No Chest Pain, No SOB, No Dyspnea on Exertion, No Orthopnea, No Edema, No Palpitations Respiratory : No Cough, No Sputum, No Wheezing, No Smoke Exposure, No Dyspnea Gastrointestinal : No Nausea, No Vomiting, No Diarrhea, No Constipation, No abdominal Pain, No Hematochezia, No Melena Genitourinary : no irregular bleeding, No Dysuria, No Urinary Frequency, No Hematuria, No Urinary Incontinence, No Urgency, No Flank Pain, No Urinary Flow Changes, No Hesitancy Musculoskeletal : No joint pain, No Myalgias, No Joint Swelling Skin : Complaining of erythema and swelling of the left hand and left ankle Neuro : No Weakness, No Numbness, No Paresthesias, No Loss of Consciousness, No Dizziness, No Headache Psych : No Anxiety/Panic, No Depression, No SI/HI/AH/VH, admits to injecting IV heroin Heme/Lymph: No Bruising, No Bleeding,No Lymphadenopathy Endocrine : No Polyuria, No Polydipsia, No Temperature Intolerance [facility] Past Medical History Medical History (Updated 01/18/24 @ 23:01 by Maria Eugenia Pedro MD) Bilateral pulmonary infiltrates on chest x-ray Rhabdomyolysis Fever Acute renal failure Cocaine use disorder Social History Social History Household Members: Family Do you presently have visiting nurse or other home services: No Unable to assess alcohol history related to: Unable to respond Patient Tobacco Use Status: Tobacco use Unknown Smoked in Last 30 Days: Yes Use of substances other than those prescribed or required for medical reasons: Yes Substance Use Type: Crack/Cocaine and Opiates Advance Directives: No Advance Directives Information Provided: No service: No Current occupational status: unemployed Physical Exam ED Vital Signs: Vital Signs - 24 hr 01/18/24 21:32 Temperature 100.0 F Pulse Rate 117 H Respiratory Rate 16 Blood Pressure 151/88 H Pulse Oximetry 93 Oxygen Delivery Method Room Air BMI result Body Mass Index 24.4 Const Other: Appearance: Alert. Oriented X3. No acute distress. Coherent Eyes: Pupils equal, round and reactive to light. ENT: Pharynx normal. Neck: Normal inspection. Neck supple. No lymph nodes noted. No crepitus CVS: Normal heart rate and rhythm. Pulses normal. Normal S1 and S2 Respiratory: No respiratory distress. Breath sounds normal. No Wheezing. No rales Abdomen: Soft and nontender. No rigidity. No distention. Skin: Skin warm and dry. Normal skin color. Normal skin turgor. Extremities: No lower extremity edema. No Lacerations. No Rash. Patient's left hand is significantly swollen, able to flex and extend all fingers and oppose the thumb. Also, patient's left ankle is swollen and erythematous Neuro: Oriented X 3. No motor deficit. No sensory deficit. Moving all extremities. No slurred speech. CN 2 through 12 grossly intact Psych: calm, cooperative, normal affect Medical Decision Making Medical Decision Making [facility] Narrative: -patient's white blood cell count is 20.4. Chemistries pending. -patient does have skin findings concerning for cellulitis. Discussed with the patient that his left hand is significantly swollen, at this time tenosynovitis is not suspected. However, the infection can spread fast. -patient states that he does not want to stay and wants to leave against medical advice. Patient states that she has wants to get home. And thanked us for our service but states that he does not want to stay in the hospital -patient was given Bactrim double strength of here in the emergency room -the chemistry has not returned yet. Patient does not want to wait for results -patient's family at bedside, they will take him home Differential Diagnosis Differential Diagnoses: The differential diagnosis associated with the presentation includes (Polysubstance abuse, cellulitis, tenosynovitis, joint infection) Admission/Observation Consideration of admission/observation: Escalation of care including admission/observation considered (Admission was considered and advice. Patient declined) Lab Data [facility] Lab Attestation statement: I reviewed the patient's lab results. 01/18/24 22:40 01/18/24 22:40 Labs: Lab Results 01/18/24 Range/Units 22:40 WBC 20.4 H (4.8-10.8) X10*3/uL RBC 4.37 L (4.60-5.80) X10*6/uL Hgb 13.8 L (14.0-18.0) g/dl Hct 38.9 L (42.0-52.0) % MCV 89.0 (80.0-98.0) fL MCH 31.6 (27.0-33.0) pg MCHC 35.5 (31.0-36.0) g/dl RDW 12.8 (11.0-16.0) % Plt Count 291 D (160-400) X10*3/uL MPV 8.8 L (9.4-12.4) fL Immature Gran % (Auto) 0.3 (0.0-0.4) % Neut % (Auto) 92.8 H (45-73) % Lymph % (Auto) 6.1 L (20-40) % [place] % (Auto) 0.5 L (2-11) % Eos % (Auto) 0.1 (0-4) % Baso % (Auto) 0.2 (0-2) % Lymph # (Auto) 1.3 (1.2-4.9) X10*3/uL [place] # (Auto) 0.1 (0.1-1.2) X10*3/uL Eos # (Auto) 0.0 (0.0-0.4) X10*3/uL Baso # (Auto) 0.1 (0.0-0.2) X10*3/uL Abs Immat Gran (auto) 0.07 H (0.00-0.03) X10*3/uL Absolute Neuts (auto) 18.9 H (2.0-8.3) x10*3/uL Absolute Nucleated RBC 0.000 (0.0-0.012) X10*3/uL Nucleated RBC % (auto) 0.0 (0.0-0.2) /100WBC Critical Care Time Critical Care Time Critical Care Time: Yes Total Critical Care Time: 45 Attestation: I have personally provided critical care time. Time includes review of lab data, radiology results, discussion with consultants, and monitoring for potential decompensation. Intervention performed as documented. Discharge Plan Discharge Clinical Impression: Polysubstance abuse, Cellulitis Patient Disposition: Left Against Medical Advice Instructions: Cellulitis (ED), Polysubstance Abuse (ED) Additional Instructions: You have a significant infection in your left hand and left ankle. You are leaving against medical advice. Please follow-up with your primary care physician tomorrow. If you have any worsening or new symptoms, please return to the emergency room or call 911 Prescriptions: New sulfamethoxazole-trimethoprim [Bactrim DS] 800-160 mg tablet 1 tab PO BID Qty: 20 0RF No Action buprenorphine-naloxone 12-3 mg film 1 strip sublingual DAILY doxycycline monohydrate 100 mg tablet 100 mg PO BID Qty: 8 0RF cefpodoxime 200 mg tablet 200 mg PO BID Qty: 8 0RF Rx Instructions: must administer with a meal/food hydroxyzine HCl 25 mg tablet 25 mg PO QID PRN (Reason: itching) Qty: 7 0RF Print Language: Mozambican
[2024-01-18] MEDS: Sulfamethox/Trimeth 800/160 TABLET 1 TAB PO (22:56)
[2024-01-18 22:59] LABS: Alanine Aminotransferase 27 U/L (0-40); Alkaline Phosphatase 68 U/L (39-117); Anion Gap 14 (12-20); Aspartate Amino Transferase 43 U/L (5-37); Bilirubin Total 1.1 mg/dL (0.0-1.0); Blood Urea Nitrogen 21 mg/dL (9-16); Calcium 8.9 mg/dL (8.4-10.2); Carbon Dioxide 26 mmol/L (22-29); Chloride 104 mmol/L (96-108); Estimated Glomerular Filt Rate > 60; Glucose Random 112 mg/dL (60-115); Potassium 3.7 mmol/L (3.3-5.1); Sodium 140 mmol/L (135-145); Total Protein 7.3 g/dL (6.5-8.0)
--- NOTE | 2024-01-18 22:59 | PC.NURSE ---
after the patient's family/bedside visitors left he was noted to come outside of the room pacing and requesting to leave saying I want to go home, I'll sign out AMA . He remains alert, oriented, and without distress noted. Md Pedro aware, pt medicated with first ABX dose with plan for dc home with antibiotic prescriptions. Pt provided with beverages per request.
[2024-01-18 23:17] VITALS: BP 120/75; PULSE 102; RESP 18; TEMP 37.3; O2SAT 99
== END 2024-01-18 23:25 | disposition left against medical advice (07) ==
PROVIDERS: Emergency Provider Emergency Medicine
DX: L03.114 Cellulitis of left upper limb (principal); F11.10 Opioid abuse, uncomplicated; F14.10 Cocaine abuse, uncomplicated; R00.0 Tachycardia, unspecified; Z71.51 Drug abuse counseling and surveillance of drug abuser; Z79.899 Other long term (current) drug therapy
CPT/HCPCS: 36415; 80053; 85025; 93005; 99283; 99285

== ENCOUNTER 2024-01-19 13:07 | Emergency (ER) | payer OTHER, SELFPAY ==
--- NOTE | ~2024-01-19 | XR_ITS ---
EXAMINATION: XR WRIST, LEFT CLINICAL INFORMATION: Left wrist pain following a fall. COMPARISON: Left wrist radiographs dated 01/13/2022. TECHNIQUE: PA, lateral, oblique, and scaphoid views of the left wrist. FINDINGS: No displaced fracture. Normal carpal alignment. No joint space narrowing or marginal osteophytes. No osseous erosion. No abnormal soft tissue calcification. XR/XR wrist LT min 3V IMPRESSION: No displaced fracture.
--- NOTE | ~2024-01-19 | XR_ITS ---
EXAMINATION: XR ANKLE, LEFT XR FOOT, LEFT CLINICAL INFORMATION: Pain following fall. COMPARISON: None. TECHNIQUE: AP, lateral, and mortise views of the left foot and left ankle were obtained. FINDINGS: No acute fracture or dislocation. The ankle mortise is maintained. Normal tarsal alignment. No joint space narrowing or marginal osteophytes. No osseous erosion. No talar osteochondral lesion. No abnormal soft tissue calcification. Moderate tibiotalar joint effusion. Prominent circumferential soft tissue swelling. XR/XR ankle LT min 3V IMPRESSION: Prominent circumferential soft tissue swelling and moderate tibiotalar joint effusion. No acute fracture or dislocation.
--- NOTE | ~2024-01-19 | XR_ITS ---
EXAMINATION: XR ANKLE, LEFT XR FOOT, LEFT CLINICAL INFORMATION: Pain following fall. COMPARISON: None. TECHNIQUE: AP, lateral, and mortise views of the left foot and left ankle were obtained. FINDINGS: No acute fracture or dislocation. The ankle mortise is maintained. Normal tarsal alignment. No joint space narrowing or marginal osteophytes. No osseous erosion. No talar osteochondral lesion. No abnormal soft tissue calcification. Moderate tibiotalar joint effusion. Prominent circumferential soft tissue swelling. XR/XR foot LT min 3V IMPRESSION: Prominent circumferential soft tissue swelling and moderate tibiotalar joint effusion. No acute fracture or dislocation.
[2024-01-19 13:40] VITALS: BP 100/63; PULSE 90; RESP 16; TEMP 36.2; O2SAT 96; BMI 24.8
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
[2024-01-19 14:00] VITALS: BP 118/86; PULSE 90; RESP 18; TEMP 37.1; O2SAT 96
[2024-01-19 17:10] VITALS: BP 100/58; PULSE 70; RESP 18; TEMP 36.8; O2SAT 97
== END 2024-01-19 17:11 | disposition home or self-care (01) ==
PROVIDERS: Emergency Provider Emergency Medicine Emergency Medical Services; PCP Internal Medicine
DX: S93.402A Sprain of unspecified ligament of left ankle, initial encounter (principal); S90.02XA Contusion of left ankle, initial encounter; M79.672 Pain in left foot; M25.532 Pain in left wrist; V19.40XA Pedal cycle driver injured in collision with unspecified motor vehicles in traffic accident, initial encounter; Y93.89 Activity, other specified; Y92.488 Other paved roadways as the place of occurrence of the external cause; Y99.8 Other external cause status
CPT/HCPCS: 73110; 73610; 73630; 99283

== ENCOUNTER 2024-01-23 00:25 | Inpatient (IN) | payer OTHER, SELFPAY ==
[2024-01-23] VITALS (16 sets, daily range): BP systolic 111–164; BP diastolic 65–101; PULSE 51–73; RESP 16–21; TEMP 34.9–37; O2SAT 95–98; BMI 24.4; BMI 25.3
--- NOTE | ~2024-01-23 | CT_ITS ---
EXAMINATION: CT ANKLE LT WITHOUT CONTRAST CLINICAL INFORMATION: Infection. Concern for abscess. COMPARISON: None available. TECHNIQUE: Contiguous axial noncontrast CT scan images of the left ankle obtained. Sagittal and coronal reformatted images also obtained. This CT examination was performed using dose optimization techniques as appropriate, variously including the following: *Automated exposure control *Adjustment of mA and/or kV according to patient size (this includes techniques or standardized protocols for targeted exams where dose is matched to indication/reason for exam; i.e. extremities or head) *Use of iterative reconstruction technique DLP: 144 mGy-cm FINDINGS: The bony structures are unremarkable. Joint spaces are maintained. There is cutaneous thickening and significant subcutaneous infiltration/fluid. No fluid collection is seen. There is no evidence for joint fluid. CT/CT ankle LT wo IV con IMPRESSION: 1. No evidence of abscess. 2. There is cutaneous thickening and subcutaneous infiltration/fluid. Suspect cellulitis.
--- NOTE | ~2024-01-23 | XR_ITS ---
EXAMINATION: XR CHEST CLINICAL INFORMATION: Shortness of breath. Concern for pneumonia. COMPARISON: 08/13/2023. TECHNIQUE: Frontal view of the chest was obtained. FINDINGS: The lung volumes are low. The cardiomediastinal silhouette is within normal limits and stable. There is no focal lung consolidation or pleural effusion. There is bilateral glenohumeral degenerative change most significant on the right with apparent postoperative change on the right. The osseous structures are otherwise unremarkable. The soft tissues are unremarkable. XR/XR chest 1V IMPRESSION: Low lung volumes. No acute cardiopulmonary process.
[2024-01-23 01:55] LABS: Glucose, Whole Blood 87 mg/dL (60-115)
--- NOTE | 2024-01-23 01:56 | ECG_ITS ---
Test Reason : TACHY Blood Pressure : / mmHG Vent. Rate : 044 BPM Atrial Rate : 044 BPM P-R Int : 136 ms QRS Dur : 088 ms QT Int : 498 ms P-R-T Axes : 003 009 034 degrees QTc Int : 425 ms Marked sinus bradycardia Moderate voltage criteria for LVH, may be normal variant ( Sokolow-Bland , [place] product ) T wave abnormality, consider anterior ischemia Abnormal ECG When compared with ECG of 18-JAN-2024 22:17, Vent. rate has decreased BY [address] no longer elevated in Anterior leads T wave inversion now evident in Anterior leads QT has shortened Referred By: Jerry Hassan Electronically Signed By:JUAN SANDERS
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
[2024-01-23 02:28] LABS: MANUAL DIFF FLAG NO
--- NOTE | 2024-01-23 02:30 | PC.NURSE ---
MD aware of amoxicillin allergy, to continue with admin of zosyn and monitor sx.
[2024-01-23 02:33] LABS: Basophils Percent Auto 0.3 % (0-2); Eosinophils Absolute Auto 0.1 X10*3/uL (0.0-0.4); Eosinophils Percent Auto 1.3 % (0-4); Hematocrit 38.2 % (42.0-52.0); Hemoglobin 12.9 g/dl (14.0-18.0); Imm Gran Abs Auto 0.05 X10*3/uL (0.00-0.03); Imm Gran Pct Auto 0.5 % (0.0-0.4); Lymphocytes Absolute Auto 3.3 X10*3/uL (1.2-4.9); Mean Corpuscular HGB Conc 33.8 g/dl (31.0-36.0); Mean Corpuscular Hemoglobin 30.9 pg (27.0-33.0); Mean Corpuscular Volume 91.6 fL (80.0-98.0); Mean Platelet Volume 8.8 fL (9.4-12.4); Monocytes Absolute Auto 0.8 X10*3/uL (0.1-1.2); Monocytes Percent Auto 7.3 % (2-11); Neutrophils Absolute Auto 6.6 x10*3/uL (2.0-8.3); Neutrophils Percent Auto 60.6 % (45-73); Platelet Count 330 X10*3/uL (160-400); Red Blood Count 4.17 X10*6/uL (4.60-5.80); Red Cell Distribution Width 12.5 % (11.0-16.0); White Blood Count 10.9 X10*3/uL (4.8-10.8)
[2024-01-23] MEDS: Piperacillin Sodium/Tazobactam 3.375 GM in 0.9 % Sodium Chloride 50 ML IV (02:33)
[2024-01-23] MEDS: 0.9 % Sodium Chloride 1,000 ML 999 ML IV ×2 (02:33)
[2024-01-23 02:41] LABS: Lactic Acid 0.7 mmol/L (0.5-2.0)
[2024-01-23 02:46] LABS: Alanine Aminotransferase 36 U/L (0-40); Albumin Level 3.6 g/dL (3.5-5.0); Alkaline Phosphatase 63 U/L (39-117); Anion Gap 13 (12-20); Aspartate Amino Transferase 45 U/L (5-37); Bilirubin Total 0.7 mg/dL (0.0-1.0); Blood Urea Nitrogen 16 mg/dL (9-16); Calcium 9.4 mg/dL (8.4-10.2); Carbon Dioxide 27 mmol/L (22-29); Chloride 104 mmol/L (96-108); Creatinine Clr Calc Pharmacy 98.7; Estimated Glomerular Filt Rate > 60; Glucose Random 83 mg/dL (60-115); Potassium 3.7 mmol/L (3.3-5.1); Sodium 140 mmol/L (135-145); Total Protein 6.6 g/dL (6.5-8.0)
--- NOTE | 2024-01-23 02:53 | PC.NURSE ---
girlfriend at bedside reports pt did not take any of prescribed po abx for L. ankle swelling redness; worsened. on arrival pt changed over by security and belongings to decon. pts vitals stable. pt denies si/hi. upon assessment by MD, assumed ?sepsis, protocol initiated. pt difficult stick multiple attempts for iv/labs. established EJ to R. neck. labs sent. ekg obtained. vss afebrile at this time. pt in agreement with admission plan. pt placed on heart monitor nsr at 62 bpm. at this time ivf and abx infusing.
--- NOTE | 2024-01-23 03:15 | PC.NURSE ---
zosyn infused. no allergic/adverse reactions noted.
[2024-01-23] MEDS: vancomycin HCL 1,000 MG in 0.9 % Sodium Chloride 250 ML 270 MG IV (03:20)
--- NOTE | 2024-01-23 03:22 | PM.IMHP ---
History of Present Illness Date of Service: 01/23/24 Chief Complaint: Altered mentation This is a 38-year-old male with pertinent history of IV drug use disorder who was brought to the emergency department for evaluation of altered mentation. Patient was brought to the ER by partner due to altered mentation. He was found sleeping and could not be woken up. Partner admits that patient has been using drugs for the last few days and he was seen using IV heroin and IV cocaine on the day of presentation. Patient was seen in the ER on 01/17 for left ankle pain and swelling. Leukocytosis of 20,000 was noted and left ankle x-ray with soft tissue swelling. Patient left against medical advice from the ER. Unable to obtain review of systems due to encephalopathy. In the emergency department, CT left ankle with soft tissue swelling. No abscesses. Review of Systems Review of Systems: Yes Unobtainable due to mental status PMFSH Medical History Bilateral pulmonary infiltrates on chest x-ray Rhabdomyolysis Fever Acute renal failure Cocaine use disorder Pertinent family history: Unable to obtain Social History Household Members: Family Do you presently have visiting nurse or other home services: No Unable to assess alcohol history related to: Unable to respond Alcohol intake: current Alcohol intake frequency: 3 or more drinks per day Patient Tobacco Use Status: Tobacco use Unknown Smoked in Last 30 Days: Yes Use of substances other than those prescribed or required for medical reasons: Yes Substance Use Type: Crack/Cocaine, Heroin, IV Drugs and Marijuana Advance Directives: No Advance Directives Information Provided: No service: No Current occupational status: unemployed Meds Allergies Allergy/AdvReac Type Severity Reaction Status Date / Time azithromycin [From ZITHROMAX] Allergy Unknown HIVES Verified 01/23/24 00:39 amoxicillin [From AUGMENTIN] AdvReac Unknown STOMACH Verified 01/23/24 00:39 PAIN clavulanic acid AdvReac Unknown STOMACH Verified 01/23/24 00:39 [From AUGMENTIN] PAIN morphine AdvReac Unknown Verified 01/23/24 00:39 Active Medications: Current Medications Sodium Chloride (Ns) 1,000 mls @ 999 mls/hr IV .Q1H1M ONE Stop: 01/23/24 03:30 Last Admin: 01/23/24 02:33 Dose: 999 mls/hr Home Medications ?Medication ?Instructions ?Recorded ?Confirmed ?Last Taken ?Type buprenorphine 12 mg-naloxone 3 mg 1 strip sublingual DAILY 01/11/22 01/11/22 Unknown History sublingual film Physical Exam Vital Signs and Narrative: Vital Signs: Last Vital Signs Temp 98.3 F 01/23/24 02:39 Pulse 51 01/23/24 02:39 Resp 20 01/23/24 02:39 BP 147/78 H 01/23/24 02:39 Pulse Ox 98 01/23/24 02:39 O2 Del Method Room Air 01/23/24 02:39 BMI result Body Mass Index 24.4 Middle-aged male lying in bed in no distress Neck supple, no JVD Regular rate and rhythm, S1-S2 heard Regular breath sounds bilaterally, no wheezing or crackles appreciated Abdomen soft nontender, no guarding, no rigidity Patient awakens to verbal stimulus but falls back asleep mid conversation, unable to assess orientation, not following commands Psych: Drowsy Left ankle with swelling, erythema, warmth Results Labs 01/23/24 05:42 01/23/24 04:34 Labs: Laboratory Results - last 24 hr 01/23/24 01/23/24 01:49 02:22 MCV 91.6 MCH 30.9 MCHC 33.8 RDW 12.5 Plt Count 330 MPV 8.8 L Immature Gran % (Auto) 0.5 H Neut % (Auto) 60.6 Lymph % (Auto) 30.0 [place] % (Auto) 7.3 Eos % (Auto) 1.3 Baso % (Auto) 0.3 Lymph # (Auto) 3.3 [place] # (Auto) 0.8 Eos # (Auto) 0.1 Baso # (Auto) 0.0 Abs Immat Gran (auto) 0.05 H Absolute Neuts (auto) 6.6 Absolute Nucleated RBC 0.000 Nucleated RBC % (auto) 0.0 Anion Gap 13 Estim Creat Clear Calc 98.7 Estimated GFR > 60 POC Glucose 87 Random Glucose 83 Lactic Acid 0.7 Calcium 9.4 Total Bilirubin 0.7 AST 45 H ALT 36 Alkaline Phosphatase 63 Total Protein 6.6 Albumin 3.6 Imaging Radiologist's Impressions: Impressions Chest X-Ray 01/23/24 03:02 IMPRESSION: Low lung volumes. No acute cardiopulmonary process. Assessment and Plan (1) Toxic encephalopathy: Status: Acute (2) Cellulitis: Status: Acute Plan This is a 38-year-old male with pertinent history of IV drug use disorder who was brought to the emergency department for evaluation of altered mentation. #. Acute toxic encephalopathy in the setting of drug use: Monitor mentation. NPO until mentation improves #. Left ankle cellulitis: Initiated empiric IV vancomycin for extensive cellulitis. Monitor for improvement. No sepsis #. IV drug use disorder: UDS positive for fentanyl, cocaine and opiates. Monitor for withdrawal. Consulted Addiction Team Med rec pending DVT prophylaxis: Lovenox Full code Admit as inpatient and will require two night minimum hospital stay for IV antibiotics, monitoring of mentation (as above), which is not possible in a lesser acute setting. Quality Stroke Does the patient have a stroke diagnosis?: No VTE Prior VTE?: No VTE Risk Level:: Medical - moderate - high VTE Device Contraindication: Treatment Not Indicated VTE Drug Contraindication: N/A - Med Ordered
[2024-01-23 03:49] LABS: COVID-19 Test Negative (Negative); IDNOW Serial# 08D9AD1C
[2024-01-23 05:10] LABS: Anion Gap 13 (12-20); Blood Urea Nitrogen 14 mg/dL (9-16); Calcium 8.1 mg/dL (8.4-10.2); Carbon Dioxide 20 mmol/L (22-29); Chloride 110 mmol/L (96-108); Creatinine Clr Calc Pharmacy 103.1; Estimated Glomerular Filt Rate > 60; Glucose Random 80 mg/dL (60-115); Potassium 4.1 mmol/L (3.3-5.1); Sodium 139 mmol/L (135-145)
[2024-01-23 05:39] LABS: Appearance Urine Clear; Color Urine Yellow; Glucose Urine UA Negative (Negative); Leukocyte Esterase Urine Negative (Negative); Nitrite Urine Negative (Negative); Urine Blood Negative (Negative); Urine Ketones Trace mg/dL (Negative); Urine Protein Negative (Neg-Trace)
[2024-01-23 05:46] LABS: MANUAL DIFF FLAG NO
[2024-01-23 05:47] LABS: Basophils Absolute Auto 0.1 X10*3/uL (0.0-0.2); Basophils Percent Auto 0.5 % (0-2); Eosinophils Absolute Auto 0.2 X10*3/uL (0.0-0.4); Eosinophils Percent Auto 1.5 % (0-4); Hematocrit 36.6 % (42.0-52.0); Hemoglobin 12.4 g/dl (14.0-18.0); Imm Gran Abs Auto 0.04 X10*3/uL (0.00-0.03); Imm Gran Pct Auto 0.4 % (0.0-0.4); Lymphocytes Absolute Auto 2.4 X10*3/uL (1.2-4.9); Lymphocytes Percent Auto 22.1 % (20-40); Mean Corpuscular HGB Conc 33.9 g/dl (31.0-36.0); Mean Corpuscular Hemoglobin 31.1 pg (27.0-33.0); Mean Corpuscular Volume 91.7 fL (80.0-98.0); Monocytes Absolute Auto 0.7 X10*3/uL (0.1-1.2); Monocytes Percent Auto 6.5 % (2-11); Neutrophils Absolute Auto 7.4 x10*3/uL (2.0-8.3); Platelet Count 305 X10*3/uL (160-400); Red Blood Count 3.99 X10*6/uL (4.60-5.80); Red Cell Distribution Width 12.4 % (11.0-16.0); White Blood Count 10.7 X10*3/uL (4.8-10.8)
[2024-01-23 05:52] LABS: Amphetamine Screen Urine Not Detected (Not Detect); Barbiturates, Urine Not Detected (Not Detect); Benzodiazepines Screen Urine Not Detected (Not Detect); Buprenorphine Scr Not Detected (Not Detect); Cannabinoid Screen Urine Not Detected (Not Detect); Cocaine Screen Urine POSITIVE (Not Detect); Fentanyl, urine POSITIVE (Not Detect); Methadone Screen, Urine Not Detected (Not Detect); Opiate Screen Urine POSITIVE (Not Detect); Oxycodone Screen Urine Not Detected (Not Detect); Phencyclidine Screen Urine Not Detected (Not Detect)
--- NOTE | 2024-01-23 06:50 | PC.NURSE ---
MD aware of amoxicillin allergy, to continue with admin of zosyn and monitor sx.
--- NOTE | 2024-01-23 07:27 | HO.PM.IMPN ---
Subjective Subjective Date of Service: 01/23/24 <MEGHAN Mitchell - Last Filed: 01/23/24 09:34> 01/24/24 <Aditya Solis MD - Last Filed: 01/24/24 10:23> Interval History: 38 year old male pmhx toxic metabolic encephalopathy, IVDA presents to ED w/ painful L ankle and AMS in the setting of IVDA. Noted to have cellulitis in the ED w/ leukocytosis, given Zosyn and Vanco for tx now admitted to the medical team. This morning patient very difficult to arouse, only arousable w/ sternal rub. Points at his L ankle when asked what hurts, falls back asleep and unable to provide much of a history or ROS. To note this patient presented w/ similar sx a few days ago ago and left the ED AMA <MEGHAN Mitchell - Last Filed: 01/23/24 09:34> 38 year old male pmhx toxic metabolic encephalopathy, IVDA presents to ED w/ painful L ankle and AMS in the setting of IVDA. Noted to have cellulitis in the ED w/ leukocytosis, given Zosyn and Vanco for tx now admitted to the medical team. This morning patient very difficult to arouse, only arousable w/ sternal rub. Points at his L ankle when asked what hurts, falls back asleep and unable to provide much of a history or ROS. To note this patient presented w/ similar sx a few days ago ago and left the ED AMA <Aditya Solis MD - Last Filed: 01/24/24 10:23> Physical Exam Vital Signs: Vital Signs: Last Vital Signs Temp 98.5 F 01/23/24 03:24 Pulse 53 01/23/24 05:27 Resp 19 01/23/24 05:27 BP 111/86 01/23/24 05:27 Pulse Ox 97 01/23/24 04:39 O2 Del Method Room Air 01/23/24 05:27 BMI result Body Mass Index 24.4 <MEGHAN Mitchell - Last Filed: 01/23/24 09:34> Appearance: Alert.? Oriented X3.?+ difficult to arouse, but awakes to sternal rub CVS: Normal heart rate and rhythm.? Pulses normal.? Respiratory: No respiratory distress.? Breath sounds normal.? Abdomen: Soft and nontender.? Skin: Skin warm and dry.? Normal skin color.? Normal skin turgor.? Extremities: No lower extremity edema.? No calf ttp. 5/5 strength to bilateral upper and lower extremities + Left ankle with swelling, erythema, warmth. Normal distal sensation b/l. Palpable pulses b/l. Neuro: Oriented X 3.? No motor deficit.? No sensory deficit. CN 2-12 intact <MEGHAN Mitchell - Last Filed: 01/23/24 09:34> Objective Data Active Medications Acetaminophen (Acetaminophen 325 Mg Tablet) 650 mg PO Q6H PRN PRN Reason: Pain, Mild (Pain Scale 1-3), fever or headache Calcium Carbonate (Calcium Carbonate 750 Mg Tab.Chew) 750 mg PO Q4H PRN PRN Reason: Heartburn Enoxaparin Sodium (Enoxaparin Sodium 40 Mg/0.4 Ml Syringe) 40 mg SUBCUT Q24H JD Magnesium Hydroxide (Milk Of Magnesia 30 Ml Oral.Susp) 30 ml PO DAILY PRN PRN Reason: Constipation Melatonin (Melatonin 3 Mg Tablet) 6 mg PO BEDTIME PRN PRN Reason: Insomnia Ondansetron HCl (Ondansetron Hcl 4 Mg/2 Ml Vial) 4 mg IVPUSH Q8H PRN PRN Reason: Nausea and Vomiting Pharmacy Consult (Consult Rx Vancomycin Dosing) 1 each MISCELLANE DAILY PRN PRN Reason: Consult order Sodium Chloride (0.9 % Sodium Chloride Flush 3 Ml Syringe) 3 ml IVFLUSH QSHIFT JD <MEGHAN Mitchell - Last Filed: 01/23/24 09:34> Labs CBC & Chem 7: 01/23/24 05:42 01/24/24 05:23 <MEGHAN Mitchell - Last Filed: 01/23/24 09:34> Labs: Laboratory Results - last 24 hr 01/23/24 01/23/24 01/23/24 01:49 02:22 04:34 MCV 91.6 MCH 30.9 MCHC 33.8 RDW 12.5 Plt Count 330 MPV 8.8 L Immature Gran % (Auto) 0.5 H Neut % (Auto) 60.6 Lymph % (Auto) 30.0 [place] % (Auto) 7.3 Eos % (Auto) 1.3 Baso % (Auto) 0.3 Lymph # (Auto) 3.3 [place] # (Auto) 0.8 Eos # (Auto) 0.1 Baso # (Auto) 0.0 Abs Immat Gran (auto) 0.05 H Absolute Neuts (auto) 6.6 Absolute Nucleated RBC 0.000 Nucleated RBC % (auto) 0.0 Anion Gap 13 13 Estim Creat Clear Calc 98.7 103.1 Estimated GFR > 60 > 60 POC Glucose 87 Random Glucose 83 80 Lactic Acid 0.7 Calcium 9.4 8.1 L D Total Bilirubin 0.7 AST 45 H ALT 36 Alkaline Phosphatase 63 Total Protein 6.6 Albumin 3.6 Urine Color Urine Appearance Urine pH Ur Specific [place] Urine Protein Urine Glucose (UA) Urine Ketones Urine Blood Urine Nitrite Ur Leukocyte Esterase Urine Opiates Screen Ur Buprenorphine Scrn Ur Oxycodone Screen Urine Methadone Screen Urine Fentanyl Screen Ur Barbiturates Screen Ur Phencyclidine Scrn Ur Amphetamines Screen U Benzodiazepines Scrn Urine Cocaine Screen U Marijuana (THC) Screen COVID-19 ([facility]) Negative COVID-19 Clin Com See Note 01/23/24 01/23/24 05:30 05:42 MCV 91.7 MCH 31.1 MCHC 33.9 RDW 12.4 Plt Count 305 MPV 9.0 L Immature Gran % (Auto) 0.4 Neut % (Auto) 69.0 Lymph % (Auto) 22.1 [place] % (Auto) 6.5 Eos % (Auto) 1.5 Baso % (Auto) 0.5 Lymph # (Auto) 2.4 [place] # (Auto) 0.7 Eos # (Auto) 0.2 Baso # (Auto) 0.1 Abs Immat Gran (auto) 0.04 H Absolute Neuts (auto) 7.4 Absolute Nucleated RBC 0.000 Nucleated RBC % (auto) 0.0 Anion Gap Estim Creat Clear Calc Estimated GFR POC Glucose Random Glucose Lactic Acid Calcium Total Bilirubin AST ALT Alkaline Phosphatase Total Protein Albumin Urine Color Yellow Urine Appearance Clear Urine pH 6.0 Ur Specific [place] 1.020 Urine Protein Negative Urine Glucose (UA) Negative Urine Ketones Trace Urine Blood Negative Urine Nitrite Negative Ur Leukocyte Esterase Negative Urine Opiates Screen POSITIVE H Ur Buprenorphine Scrn Not Detected Ur Oxycodone Screen Not Detected Urine Methadone Screen Not Detected Urine Fentanyl Screen POSITIVE H Ur Barbiturates Screen Not Detected Ur Phencyclidine Scrn Not Detected Ur Amphetamines Screen Not Detected U Benzodiazepines Scrn Not Detected Urine Cocaine Screen POSITIVE H U Marijuana (THC) Screen Not Detected COVID-19 ([facility]) COVID-19 Clin Com <MEGHAN Mitchell - Last Filed: 01/23/24 09:34> Assessment and Plan (1) Cellulitis: Status: Acute <MEGHAN Mitchell - Last Filed: 01/23/24 09:34> (2) Toxic encephalopathy: Status: Acute <MEGHAN Mitchell - Last Filed: 01/23/24 09:34> Assessment and Plan: This is a 38-year-old male with pertinent history of IVDA who was brought to the emergency department for evaluation of altered mentation and a painful L ankle Acute toxic encephalopathy in the setting of drug use: still present unchanged, difficult to arouse, arouses to sternal rub - Monitor mentation. - NPO until mentation improves, once mentation improves can advance diet to normal diet Left ankle cellulitis: L ankle still erythematous and warm - Continue empiric IV vancomycin for extensive cellulitis. - Monitor for improvement. - No signs of septic joint IV drug use disorder: UDS positive for fentanyl, cocaine and opiates. - Monitor for withdrawal. - Consulted Addiction Team, input pending Med rec pending - will review once done DVT prophylaxis: indicated -Lovenox Q 24 H Full code Admit as inpatient and will require two night minimum hospital stay for IV antibiotics, monitoring of mentation (as above), which is not possible in a lesser acute setting. <MEGHAN Mitchell - Last Filed: 01/23/24 09:34> 38/m with IVDA brought to ED for AMS and a painful L ankle, found to have encephalopathy and L ankle cellulitis Acute toxic encephalopathy in the setting of drug use: still present unchanged, difficult to arouse, arouses to sternal rub - Monitor mentation. - NPO until mentation improves, once mentation improves can advance diet to normal diet Left ankle cellulitis: L ankle still erythematous and warm - Continue empiric IV vancomycin for extensive cellulitis. - Monitor for improvement. - No signs of septic joint IV drug use disorder, + fentanyl, cocaine and opiates - Monitor for withdrawal. - addinction med consult Med rec pending - will review once done DVT prophylaxis: Lovenox Full code need for inpt: IV abx for cellulitis, at risk for sepsis <Aditya Solis MD - Last Filed: 01/24/24 10:23> Quality Stroke Does the patient have a stroke diagnosis?: No <MEGHAN Mitchell - Last Filed: 01/23/24 09:34> VTE Prior VTE?: No <MEGHAN Mitchell - Last Filed: 01/23/24 09:34> VTE Risk Level:: Medical - moderate - high <MEGHAN Mitchell - Last Filed: 01/23/24 09:34> VTE Device Contraindication: Treatment Not Indicated <MEGHAN Mitchell - Last Filed: 01/23/24 09:34> VTE Drug Contraindication: N/A - Med Ordered <MEGHAN Mitchell - Last Filed: 01/23/24 09:34>
--- NOTE | 2024-01-23 07:32 | PC.NURSE ---
Care of Pt assumed at change of shift. Pt is observed resting comfortably with eyes closed. VSS and NAD noted at this time. Awaiting bed assignment.
--- NOTE | 2024-01-23 08:20 | PHA.PROG ---
Admission Date/Time: January 23, 2024 03:21 Indication: SKIN INFECTION Weight in k.6 kg Adjusted body weight in Kg: Crystal body weight in Kg: Obesity Dosing Indication % IBW: Serum Creatinine - Last 168 Hours 01/23/24 01/23/24 02:22 04:34 Creatinine 0.71 0.68 Estimated CrCl and GFR - Last 168 Hours 01/23/24 01/23/24 02:22 04:34 Estim Creat Clear Calc 98.7 103.1 Estimated GFR > 60 > 60 Vancomycin Loading Dose: 1000 mg Current Vancomycin Dosing Regimen: 1250 mg q12h Vancomycin Monitoring using AUC goal of 400 - 600 range with trough as surrogate marker: [id number] TROUGH=15.9 Date and Time for next Vancomycin Level to be drawn: 01/24/24 @1300 Pharmacist Comments on Vancomycin Plan: Vancomycin dosing will take advantage of [employer] as a clinical decision support tool that uses Bayesian modeling to calculate individual patient's pharmacokinetic parameters and forecast the patient's drug concentration time course with the target goal AUC 24 range of 400 - 600 mg/L/hr.
--- NOTE | 2024-01-23 08:31 | PC.NURSE ---
This RN attempts to administer Enoxaparin 40mg and perform scheduled IV flush. Pt was not agreeable to care at this time. Care explained and Pt shook his head no and would not further interact with this RN.
--- NOTE | 2024-01-23 11:28 | PHA.MEDREC ---
Pharmacy Consult ? Medication Reconciliation Pharmacy has completed the medication reconciliation. Patient is AMS. Used pharmacy claims.
[2024-01-23] MEDS: Dextroamphetamine/Amphetamine XR 10 MG CAP.ER.24H 20 MG PO (12:40)
[2024-01-23] MEDS: methADONE HCl 20 MG/2 ML ORAL.CONC PO (12:42)
--- NOTE | 2024-01-23 13:19 | MHC.RECOVRN ---
Met with pt in ED8 after consult placed to Addiction Medicine for JONH. Pt had presented to the ED after 911 was called after bystander saw pt sleeping outside. Pt reported he was interested in ATS. Upon provider evaluation, pt admitted for toxic encephalopathy as well as left ankle cellulitis. Pt laying in bed, eyes closed, immediately opens to voice. Appears uncomfortable. Pt reports he is experiencing withdrawal, when asked about symptoms states every one they make. Reports body aches, restlessness and rhinorrhea noted. Pt reports he is using heroin/fentanyl, 1 bag daily, IV, as well as cocaine, $10-$20 daily, IV. Pt is currently prescribed Suboxone, however, reports he last took a dose days ago. Pt is interested in methadone for withdrawal management. Denies other questions or concerns at this time. Discussed with Rena Mayo APRN.
--- NOTE | 2024-01-23 14:14 | PC.NURSE ---
Spoke to partner at bedside who reports Pt would like to go to a detox facility in [place] upon discharge.
--- NOTE | 2024-01-23 14:25 | MHC.RECOVRN ---
Met with pt to check in after receiving 20 mg methadone. Pt laying in bed, asleep, briefly wakes to voice and quickly falls back to sleep. Pts partner, Jennifer, at the bedside. Jennifer reports she has been trying to get pt to [facility] in [place], however, there has not been bed availability. Educated Jennifer on ATS process and depending on how long pt is admitted he might not qualify for ATS at discharge. Also educated Jennifer on CSS and ability to complete CSS referral if pt is interested. Jennifer expresses concern that pt will wake up and feel withdrawal and ask to discharge. Assured Jennifer that steps will be taken to ensure pt is comfortable while admitted. Jennifer denies other questions or concerns at this time, provided t/w contact information if needed.
[2024-01-23] MEDS: vancomycin HCL 1,250 MG in 0.9 % Sodium Chloride 250 ML 166.67 MG IV (15:11)
[2024-01-23] MEDS: Gabapentin 300 MG CAPSULE PO ×2 (15:11→21:17)
--- NOTE | 2024-01-23 17:39 | P.EN_ITS ---
Event Note Date of Service: 01/23/24 Event Note: Addiction note Patient seen by geospatial applications developer Acute withdrawal sx noted Patient requesting methadone--reporting it has been several days since he last took buprenorphine History of precipitated withdrawal Plan: -methadone 20mg X1 with positive effect -methadon e10mg q4H PRN max 3 doses -RN reporting that patient's partner has been working to get him into treatment, has been using fentanyl daily for some time now -will follow up in AM and complete assessment as he we sleeping remainder of afternoon Time Spent With Patient Time: Total time managing care of this patient today ____ minutes.
--- NOTE | 2024-01-23 19:28 | MHC.EDTECH ---
ALL BELONGINGS ARE IN ED DECON
[2024-01-23 20:10] LABS: Glucose, Whole Blood 141 mg/dL (60-115)
[2024-01-23] MEDS: Sulfamethox/Trimeth 800/160 TABLET 1 TAB PO (21:17)
--- NOTE | 2024-01-23 23:49 | HO.SKINPHOTO ---
Location:left posterior scab Category: Stage: Length: Width: Depth: cm Location: Category: Stage: Length: Width: Depth: cm Location: Category: Stage: Length: Width: Depth: cm Location: Category: Stage: Length: Width: Depth: cm Location: Category: Stage: Length: Width: Depth: cm Location: Category: Stage: Length: Width: Depth: cm
--- NOTE | 2024-01-23 23:50 | HO.SKINPHOTO ---
Location:left great toe Category:Necrosis Stage: Length: Width: Depth: cm Location: Category: Stage: Length: Width: Depth: cm Location: Category: Stage: Length: Width: Depth: cm Location: Category: Stage: Length: Width: Depth: cm Location: Category: Stage: Length: Width: Depth: cm Location: Category: Stage: Length: Width: Depth: cm
--- NOTE | 2024-01-23 23:50 | HO.SKINPHOTO ---
Location:left heel Category: Stage: Length: Width: Depth: cm Location: Category: Stage: Length: Width: Depth: cm Location: Category: Stage: Length: Width: Depth: cm Location: Category: Stage: Length: Width: Depth: cm Location: Category: Stage: Length: Width: Depth: cm Location: Category: Stage: Length: Width: Depth: cm
[2024-01-24] MEDS: 0.9 % Sodium Chloride Flush 3 ML SYRINGE IVFLUSH ×2 (00:14→09:47)
[2024-01-24 00:22] VITALS: RESP 16
[2024-01-24] MEDS: vancomycin HCL 1,250 MG in 0.9 % Sodium Chloride 250 ML 166.67 MG IV ×2 (03:12→11:44)
[2024-01-24 03:18] VITALS: BP 165/84; PULSE 58; RESP 18; TEMP 36.6; O2SAT 95
--- NOTE | 2024-01-24 03:19 | PC.NURSE ---
Patient has been sleeping well so far overnight. visitor has been in recliner at bedside. VSS, easily arousable to name and following directions, falls right back to sleep. Confirms that he is comfortable.
[2024-01-24 06:54] LABS: Creatinine Clr Calc Pharmacy 100.1; Estimated Glomerular Filt Rate > 60
[2024-01-24 08:00] VITALS: BP 161/95; PULSE 65; RESP 17; TEMP 36.8; O2SAT 98
--- NOTE | 2024-01-24 09:27 | MHC.CM.PN ---
Addendum entered by Anitra Hdez RN 01/24/24 13:36: Patient dc'd home self care. Arranged own transportation and left [facility] prior to speaking w/ CM regarding where patient will dc to. Original Note: IMM delivered. Patient confirms mailing address on file, but states that he is essentially homeless, mostly couch surfing. Functionally independent. Current IVDU. Started on Methadone this admission, no home clinic. Open to additional resources from recovery team. PCP Valentino Brothres MD No HCP. CM provided education and offered assistance. Patient declined. + THRIVE. Resource guide and snf list provided. DP: Patient reports he is unsure where he would like to go on dc - friend's house vs snf
[2024-01-24] MEDS: methADONE HCl 20 MG/2 ML ORAL.CONC 10 MG PO (09:46)
[2024-01-24] MEDS: Gabapentin 300 MG CAPSULE PO (09:47)
[2024-01-24] MEDS: Sulfamethox/Trimeth 800/160 TABLET 1 TAB PO (09:47)
[2024-01-24] MEDS: Dextroamphetamine/Amphetamine XR 10 MG CAP.ER.24H 20 MG PO (09:47)
--- NOTE | 2024-01-24 10:23 | PM.DS ---
DS: Providers Provider Date of Service: 01/24/24 Date of admission: 01/23/24 03:21 Primary care physician: Unknown Physician Consults: 01/23/24 03:21 Addiction Medicine Routine Consulting Provider: Addiction Covering Reason for consultation: IV drug use disorder 01/23/24 21:25 Consult to Wound Care Routine Reason for consultation: wound DS: Diagnosis Discharge Diagnosis (1) Cellulitis: Status: Acute (2) Toxic encephalopathy: Status: Acute DS: Summary Hospital Course Hospital Course: admission hpi Chief Complaint: Altered mentation This is a 38-year-old male with pertinent history of IV drug use disorder who was brought to the emergency department for evaluation of altered mentation. Patient was brought to the ER by partner due to altered mentation. He was found sleeping and could not be woken up. Partner admits that patient has been using drugs for the last few days and he was seen using IV heroin and IV cocaine on the day of presentation. Patient was seen in the ER on 01/17 for left ankle pain and swelling. Leukocytosis of 20,000 was noted and left ankle x-ray with soft tissue swelling. Patient left against medical advice from the ER. Unable to obtain review of systems due to encephalopathy. In the emergency department, CT left ankle with soft tissue swelling. No abscesses. hospital course 38/m with IVDA brought to ED for AMS and a painful L ankle, found to have encephalopathy and L ankle cellulitis.. Acute toxic encephalopathy in the setting of drug use, he is now lucid and is advised to avoid ilicit substance use. Addition med has seen him and given him resources to help . Left ankle cellulitis with no bony involvment. He was treated with IV Vancomycin. He was previously given Bactrim but doesn't appear that he took it. He is discharged with Doxycyline. Pharmacy brought the med to [facility] before discharge. Time Attestation Discharge Coordination Time (in mins): 35 Quality: Safe Use of Opioids Does Pt have an Active Cancer Diagnosis on the Problem List?: No Quality: Stroke Does the patient have a stroke diagnosis?: No Physical Exam Vital Signs: Vital Signs: Last Vital Signs Temp 98.2 F 01/24/24 08:00 Pulse 65 01/24/24 08:00 Resp 17 01/24/24 08:00 BP 161/95 H 01/24/24 08:00 Pulse Ox 98 01/24/24 08:00 O2 Del Method Room Air 01/24/24 08:00 BMI result Body Mass Index 25.3 Appearance: Alert.? Oriented X3.?+ difficult to arouse, but awakes to sternal rub CVS: Normal heart rate and rhythm.? Pulses normal.? Respiratory: No respiratory distress.? Breath sounds normal.? Abdomen: Soft and nontender.? Skin: Skin warm and dry.? Normal skin color.? Normal skin turgor.? Extremities: No lower extremity edema.? No calf ttp. 5/5 strength to bilateral upper and lower extremities + Left ankle with swelling, erythema, warmth. Normal distal sensation b/l. Palpable pulses b/l. Neuro: Oriented X 3.? No motor deficit.? No sensory deficit. CN 2-12 intact DS: Data Data Completed and Pending Labs on day of discharge: Laboratory Results - last 24 hr 01/23/24 01/24/24 20:05 05:23 Creatinine 0.70 Estim Creat Clear Calc 100.1 Estimated GFR > 60 POC Glucose 141 H Preliminary micro results at discharge 01/23/24 02:22 Blood Culture - Preliminary Blood - Venous No growth after 24 hours. 01/23/24 02:22 Blood Culture - Preliminary Blood - Venous No growth after 24 hours. Discharge Plan Discharge Anticipated Discharge Date/Time: 01/24/24 13:14 Patient Disposition: Home, Self-Care Discharge Diagnosis: cellulitis of the ankle area Referrals: Physician,Unknown J [Primary Care Provider] - 1 Week Discharge Medications: New doxycycline monohydrate 100 mg tablet 100 mg PO BID Qty: 14 0RF Continued buprenorphine-naloxone 12-3 mg film 1 strip sublingual BID dextroamphetamine-amphetamine 20 mg capsule,extended release 24hr 1 cap PO QAM gabapentin 300 mg capsule 300 mg PO TID Discontinued sulfamethoxazole-trimethoprim [Bactrim DS] 800-160 mg tablet 1 tab PO BID Qty: 20 0RF Rx Instructions: X 10 DAYS Discharge Orders: Discharge Order (Routine); Ordered 01/24/24 Ordered By: Aditya Solis Diet: Advance to usual diet Activity on Discharge: As tolerated Stand Alone Forms: Patient Portal Discharge page Print Language: Hungarian Care Plan Goals: recovery from cellulitis and recovery from substance use Health Concerns: cellulitis of over ankle and chronic substance use disorder Plan of Treatment: take doxycycline as recommended and follow-up with your doctor within a week, call for appointment. follow up the resources given to you to help with addiction and substance use Assessment: See above
--- NOTE | 2024-01-24 10:27 | P.PNIM_ITS ---
Subjective Subjective Date of Service: 01/24/24 Interval History: 38 year old male pmhx toxic metabolic encephalopathy, IVDA presents to ED w/ painful L ankle and AMS in the setting of IVDA. Noted to have cellulitis in the ED w/ leukocytosis, given Zosyn and Vanco for tx now admitted to the medical team. This morning patient very difficult to arouse, only arousable w/ sternal rub. Points at his L ankle when asked what hurts, falls back asleep and unable to provide much of a history or ROS. To note this patient presented w/ similar sx a few days ago ago and left the ED AMA Physical Exam 2 Vital Signs: Vital Signs: Last Vital Signs Temp 98.2 F 01/24/24 08:00 Pulse 65 01/24/24 08:00 Resp 17 01/24/24 08:00 BP 161/95 H 01/24/24 08:00 Pulse Ox 98 01/24/24 08:00 O2 Del Method Room Air 01/24/24 08:00 BMI result Body Mass Index 25.3 Objective Data Active Medications Acetaminophen (Acetaminophen 325 Mg Tablet) 650 mg PO Q6H PRN PRN Reason: Pain, Mild (Pain Scale 1-3), fever or headache Amphetamine/Dextroamphetamine (Dextroamphetamine/Amphetamine Xr 10 Mg Cap.Er.24h) 20 mg PO DAILY [facility] Last Admin: 01/24/24 09:47 Dose: 20 mg Documented By: MARY Calcium Carbonate (Calcium Carbonate 750 Mg Tab.Chew) 750 mg PO Q4H PRN PRN Reason: Heartburn Enoxaparin Sodium (Enoxaparin Sodium 40 Mg/0.4 Ml Syringe) 40 mg SUBCUT Q24H [facility] Last Admin: 01/24/24 09:50 Dose: Not Given Documented By: MARY Non-Admin Reason: Patient Refused Gabapentin (Gabapentin 300 Mg Capsule) 300 mg PO TID [facility] Last Admin: 01/24/24 09:47 Dose: 300 mg Documented By: MARY Vancomycin HCl 1,250 mg/ (Sodium Chloride) 250 mls @ 166.667 mls/hr IV Q12H [facility] Last Infusion: 01/24/24 04:56 Dose: Infused Documented By: ANDRES Magnesium Hydroxide (Milk Of Magnesia 30 Ml Oral.Susp) 30 ml PO DAILY PRN PRN Reason: Constipation Melatonin (Melatonin 3 Mg Tablet) 6 mg PO BEDTIME PRN PRN Reason: Insomnia Methadone HCl (Methadone Hcl 20 Mg/2 Ml Oral.Conc) 10 mg PO Q4H PRN PRN Reason: Opiate Withdrawal Last Admin: 01/24/24 09:46 Dose: 10 mg Documented By: MARY Co-signed By: ALEX Ondansetron HCl (Ondansetron Hcl 4 Mg/2 Ml Vial) 4 mg IVPUSH Q8H PRN PRN Reason: Nausea and Vomiting Pharmacy Consult (Consult Rx Vancomycin Dosing) 1 each MISCELLANE DAILY PRN PRN Reason: Consult order Sodium Chloride (0.9 % Sodium Chloride Flush 3 Ml Syringe) 3 ml IVFLUSH QSHIFT [facility] Last Admin: 01/24/24 09:47 Dose: 3 ml Documented By: MARY Trimethoprim/Sulfamethoxazole (Sulfamethox/Trimeth 800/160 Tablet) 1 tab PO BID [facility] Last Admin: 01/24/24 09:47 Dose: 1 tab Documented By: MARY Labs 01/23/24 05:42 01/24/24 05:23 Labs: Laboratory Results - last 24 hr 01/23/24 01/24/24 20:05 05:23 Estim Creat Clear Calc 100.1 Estimated GFR > 60 POC Glucose 141 H Microbiology Microbiology Results: Microbiology 01/23/24 02:22 Blood Culture - Preliminary Blood - Venous No growth after 24 hours. 01/23/24 02:22 Blood Culture - Preliminary Blood - Venous No growth after 24 hours. Assessment and Plan (1) Cellulitis: Status: Acute (2) Toxic encephalopathy: Status: Acute Plan 38/m with IVDA brought to ED for AMS and a painful L ankle, found to have encephalopathy and L ankle cellulitis Acute toxic encephalopathy in the setting of drug use: still present unchanged, difficult to arouse, arouses to sternal rub - Monitor mentation. - NPO until mentation improves, once mentation improves can advance diet to normal diet Left ankle cellulitis: L ankle still erythematous and warm - Continue empiric IV vancomycin for extensive cellulitis. - Monitor for improvement. - No signs of septic joint IV drug use disorder, + fentanyl, cocaine and opiates - Monitor for withdrawal. - addinction med consult Med rec pending - will review once done DVT prophylaxis: Lovenox Full code need for inpt: IV abx for cellulitis, at risk for sepsis Quality Stroke Does the patient have a stroke diagnosis?: No VTE Prior VTE?: No VTE Risk Level:: Medical - moderate - high VTE Device Contraindication: Treatment Not Indicated VTE Drug Contraindication: N/A - Med Ordered
--- NOTE | 2024-01-24 11:20 | HO.WOUND ---
Wound Consult: Initial 38yr old?Male admitted to [facility] on 01/23/24 - See progress notes and H&P for detailed history.? Wound consult placed for Left medial Ankle and Foot wounds POA.? Patient agreeable to assessment and photo documentation.? Arrival to bedside patient is currently getting ready for d/c to unknown location - pt reports he is unhoused at this time. We did have a candid discussion regarding IV Drug use - the patient reported he was not yet ready for detox but was interested in best skin protection and harm reduction practices regarding IVDU skin infections. We discussed hand hygiene, skin washing prior to injection clean needles and treating wounds once they start. He reports understanding. Patient given supplies for topical wound care and was given harm reduction kit by direct care nurse at time of d/c. We discussed [facility] but patient reports he would not likely utilize the services they provide at this time. The patient was noted to have swelling to the medial malleolus the skin is intact and tender to touch - no warmth appreciated at the time of my assessment. There are no topical interventions needed at this time. The Left great toe has a resolving blood blister. The blister is firm intact and dry and not lifting. No topical interventions needed at this time. Bilateral Heels were assessed for fissures. Dry cracks within his callused heels were noted. Recommend vaseline application twice daily to help heal and prevent cracking.
[2024-01-24] MEDS: methADONE HCl 20 MG/2 ML ORAL.CONC PO (11:45)
[2024-01-24] MEDS: Naloxone HCl Nasal TAKE HOME 4 MG SPRAY 8 MG NOSTRILALT (11:45)
--- NOTE | 2024-01-24 11:54 | HO.ADDICTPRO ---
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 Patient awake, alert, engaged in interview. Reports he recently started using again about 10 days ago. Identifies cocaine use as most problematic and states that he recently used for 4 days straight prior to coming to [facility] He reports using 1-2 bags of fentatnyl daily He reports that he would like to pursue additional [facility] treatment and that his has been working on getting him placed at a specific facility. Prior to recent recurrence, he states he was stable in treatment for OUD and is prescribed Suboxone 8mg BID. He is reporting withdrawal sx--chills, anxiety He received total of 20mg methadone yesterday afternoon and slept through the night. Review of Systems Constitutional: Reports as per HPI Mental Status Exam Mental Status Exam Patient Appearance: Appropriate Level of Consciousness: Awake and Alert Patient Behavior: Appropriate Mood Description: Calm Affect Description: Calm Diagnostics Vital Signs (24Hr): Vital Signs - 24 hr 01/23/24 15:06 01/23/24 19:21 01/23/24 20:00 Temperature 94.8 F L 98.0 F 98.6 F Pulse Rate 59 54 73 Respiratory Rate 16 18 18 Blood Pressure 144/77 H 136/97 H 154/77 H Pulse Oximetry 96 98 98 Oxygen Delivery Method Room Air Room Air Room Air 01/24/24 00:22 01/24/24 03:18 01/24/24 08:00 Temperature 97.8 F 98.2 F Pulse Rate 58 65 Respiratory Rate 16 18 17 Blood Pressure 165/84 H 161/95 H Pulse Oximetry 95 98 Oxygen Delivery Method Room Air Room Air BMI result Body Mass Index 25.3 Labs 01/23/24 05:42 01/24/24 05:23 Labs: Laboratory Results - last 48 hr 01/23/24 01/23/24 01/23/24 01:49 02:22 04:34 WBC 10.9 H RBC 4.17 L Hgb 12.9 L Hct 38.2 L MCV 91.6 MCH 30.9 MCHC 33.8 RDW 12.5 Plt Count 330 MPV 8.8 L Immature Gran % (Auto) 0.5 H Neut % (Auto) 60.6 Lymph % (Auto) 30.0 [place] % (Auto) 7.3 Eos % (Auto) 1.3 Baso % (Auto) 0.3 Lymph # (Auto) 3.3 [place] # (Auto) 0.8 Eos # (Auto) 0.1 Baso # (Auto) 0.0 Abs Immat Gran (auto) 0.05 H Absolute Neuts (auto) 6.6 Absolute Nucleated RBC 0.000 Nucleated RBC % (auto) 0.0 Sodium 140 139 Potassium 3.7 4.1 Chloride 104 110 H Carbon Dioxide 27 20 L Anion Gap 13 13 BUN 16 14 Creatinine 0.71 0.68 Estim Creat Clear Calc 98.7 103.1 Estimated GFR > 60 > 60 POC Glucose 87 Random Glucose 83 80 Lactic Acid 0.7 Calcium 9.4 8.1 L D Total Bilirubin 0.7 AST 45 H ALT 36 Alkaline Phosphatase 63 Total Protein 6.6 Albumin 3.6 Urine Color Urine Appearance Urine pH Ur Specific [place] Urine Protein Urine Glucose (UA) Urine Ketones Urine Blood Urine Nitrite Ur Leukocyte Esterase Urine Opiates Screen Ur Buprenorphine Scrn Ur Oxycodone Screen Urine Methadone Screen Urine Fentanyl Screen Ur Barbiturates Screen Ur Phencyclidine Scrn Ur Amphetamines Screen U Benzodiazepines Scrn Urine Cocaine Screen U Marijuana (THC) Screen COVID-19 ([facility]) Negative COVID-19 Clin Com See Note 01/23/24 01/23/24 01/23/24 05:30 05:42 20:05 WBC 10.7 RBC 3.99 L Hgb 12.4 L Hct 36.6 L MCV 91.7 MCH 31.1 MCHC 33.9 RDW 12.4 Plt Count 305 MPV 9.0 L Immature Gran % (Auto) 0.4 Neut % (Auto) 69.0 Lymph % (Auto) 22.1 [place] % (Auto) 6.5 Eos % (Auto) 1.5 Baso % (Auto) 0.5 Lymph # (Auto) 2.4 [place] # (Auto) 0.7 Eos # (Auto) 0.2 Baso # (Auto) 0.1 Abs Immat Gran (auto) 0.04 H Absolute Neuts (auto) 7.4 Absolute Nucleated RBC 0.000 Nucleated RBC % (auto) 0.0 Sodium Potassium Chloride Carbon Dioxide Anion Gap BUN Creatinine Estim Creat Clear Calc Estimated GFR POC Glucose 141 H Random Glucose Lactic Acid Calcium Total Bilirubin AST ALT Alkaline Phosphatase Total Protein Albumin Urine Color Yellow Urine Appearance Clear Urine pH 6.0 Ur Specific [place] 1.020 Urine Protein Negative Urine Glucose (UA) Negative Urine Ketones Trace Urine Blood Negative Urine Nitrite Negative Ur Leukocyte Esterase Negative Urine Opiates Screen POSITIVE H Ur Buprenorphine Scrn Not Detected Ur Oxycodone Screen Not Detected Urine Methadone Screen Not Detected Urine Fentanyl Screen POSITIVE H Ur Barbiturates Screen Not Detected Ur Phencyclidine Scrn Not Detected Ur Amphetamines Screen Not Detected U Benzodiazepines Scrn Not Detected Urine Cocaine Screen POSITIVE H U Marijuana (THC) Screen Not Detected COVID-19 ([facility]) COVID-19 [facility] Com 01/24/24 05:23 WBC RBC Hgb Hct MCV MCH MCHC RDW Plt Count MPV Immature Gran % (Auto) Neut % (Auto) Lymph % (Auto) [place] % (Auto) Eos % (Auto) Baso % (Auto) Lymph # (Auto) [place] # (Auto) Eos # (Auto) Baso # (Auto) Abs Immat Gran (auto) Absolute Neuts (auto) Absolute Nucleated RBC Nucleated RBC % (auto) Sodium Potassium Chloride Carbon Dioxide Anion Gap BUN Creatinine 0.70 Estim Creat Clear Calc 100.1 Estimated GFR > 60 POC Glucose Random Glucose Lactic Acid Calcium Total Bilirubin AST ALT Alkaline Phosphatase Total Protein Albumin Urine Color Urine Appearance Urine pH Ur Specific [place] Urine Protein Urine Glucose (UA) Urine Ketones Urine Blood Urine Nitrite Ur Leukocyte Esterase Urine Opiates Screen Ur Buprenorphine Scrn Ur Oxycodone Screen Urine Methadone Screen Urine Fentanyl Screen Ur Barbiturates Screen Ur Phencyclidine Scrn Ur Amphetamines Screen U Benzodiazepines Scrn Urine Cocaine Screen U Marijuana (THC) Screen COVID-19 ([facility]) COVID-19 Clin Com Imaging Radiology Impressions: ITS Impressions Chest X-Ray 01/23/24 03:02 IMPRESSION: Low lung volumes. No acute cardiopulmonary process. Ankle CT 01/23/24 04:10 IMPRESSION: 1. No evidence of abscess. 2. There is cutaneous thickening and subcutaneous infiltration/fluid. Suspect cellulitis. Medications Medications Current Medications Acetaminophen (Acetaminophen 325 Mg Tablet) 650 mg PO Q6H PRN PRN Reason: Pain, Mild (Pain Scale 1-3), fever or headache Amphetamine/Dextroamphetamine (Dextroamphetamine/Amphetamine Xr 10 Mg Cap.Er.24h) 20 mg PO DAILY [facility] Last Admin: 01/24/24 09:47 Dose: 20 mg Calcium Carbonate (Calcium Carbonate 750 Mg Tab.Chew) 750 mg PO Q4H PRN PRN Reason: Heartburn Enoxaparin Sodium (Enoxaparin Sodium 40 Mg/0.4 Ml Syringe) 40 mg SUBCUT Q24H [facility] Last Admin: 01/24/24 09:50 Dose: Not Given Gabapentin (Gabapentin 300 Mg Capsule) 300 mg PO TID [facility] Last Admin: 01/24/24 09:47 Dose: 300 mg Vancomycin HCl 1,250 mg/ (Sodium Chloride) 250 mls @ 166.667 mls/hr IV Q12H [facility] Last Admin: 01/24/24 11:44 Dose: 166.67 mls/hr Magnesium Hydroxide (Milk Of Magnesia 30 Ml Oral.Susp) 30 ml PO DAILY PRN PRN Reason: Constipation Melatonin (Melatonin 3 Mg Tablet) 6 mg PO BEDTIME PRN PRN Reason: Insomnia Ondansetron HCl (Ondansetron Hcl 4 Mg/2 Ml Vial) 4 mg IVPUSH Q8H PRN PRN Reason: Nausea and Vomiting Pharmacy Consult (Consult Rx Vancomycin Dosing) 1 each MISCELLANE DAILY PRN PRN Reason: Consult order Sodium Chloride (0.9 % Sodium Chloride Flush 3 Ml Syringe) 3 ml IVFLUSH QSHIFT [facility] Last Admin: 01/24/24 09:47 Dose: 3 ml Trimethoprim/Sulfamethoxazole (Sulfamethox/Trimeth 800/160 Tablet) 1 tab PO BID [facility] Last Admin: 01/24/24 09:47 Dose: 1 tab Allergies Allergies Allergy/AdvReac Type Severity Reaction Status Date / Time azithromycin [From ZITHROMAX] Allergy Unknown HIVES Verified 01/23/24 00:39 amoxicillin [From AUGMENTIN] AdvReac Unknown STOMACH Verified 01/23/24 00:39 PAIN clavulanic acid AdvReac Unknown STOMACH Verified 01/23/24 00:39 [From AUGMENTIN] PAIN morphine AdvReac Unknown Verified 01/23/24 00:39 Assessment & Plan Assessment & Plan (1) Opioid use disorder: Status: Acute Code(s): F11.90 - Opioid use, unspecified, uncomplicated Assessment and Plan: at time of this note, patient has been medically cleared and does not wish to remain here while trying to secure a bed at [facility] treatment facility he would like to remain on methadone--additional 20mg ordered today for total of 30mg floor director to send referral to [facility] ([facility]) Risk reduction and overdose prevention discussion --take home narcan and safe use kit provided to patient Total time managing care of this patient today __40__ minutes.
[2024-01-24 13:49] LABS: Vancomycin Random 59.3 mcg/mL (15-20)
== END 2024-01-24 13:30 | disposition home or self-care (01) | DRG 917 ==
LOC: HO.ED 00:54 → HO.EDOVER 03:26 → HO.S3 18:13
PROVIDERS: Admitting Provider Student in an Organized Health Care Education/Training Program; Emergency Provider Internal Medicine; PCP Internal Medicine; Visit Provider Internal Medicine
DX: T40.601A Poisoning by unspecified narcotics, accidental (unintentional), initial encounter (principal); G92.8 Other toxic encephalopathy; F11.20 Opioid dependence, uncomplicated; L03.116 Cellulitis of left lower limb; Z20.822 Contact with and (suspected) exposure to COVID-19; Z79.899 Other long term (current) drug therapy
CPT/HCPCS: 36415; 71045; 73700; 80048; 80053; 80202; 80307; 81003; 82565; 82947; 83605; 85025; 87040; 87635; 93005; 99232; 99285; J1650; J2543; J3370; J3371

== ENCOUNTER → 2024-01-23 03:21 | Outpatient (BNV) | payer OTHER, SELFPAY | PROVIDERS: Admitting Provider Student in an Organized Health Care Education/Training Program; Emergency Provider Internal Medicine; Visit Provider Nurse Practitioner Psychiatric/Mental Health | DX: F11.90 Opioid use, unspecified, uncomplicated (principal) | CPT/HCPCS: 99232; 99499 ==

== ENCOUNTER → 2024-01-23 03:21 | Outpatient (BNV) | payer OTHER, SELFPAY | PROVIDERS: Admitting Provider Student in an Organized Health Care Education/Training Program; Emergency Provider Internal Medicine; Visit Provider Student in an Organized Health Care Education/Training Program | DX: G92.9 Unspecified toxic encephalopathy (principal); L03.90 Cellulitis, unspecified | CPT/HCPCS: 99223; 99239 ==

== ENCOUNTER 2024-02-06 10:15 | Emergency (ER) | payer OTHER, SELFPAY ==
[2024-02-06 10:22] VITALS: BP 143/91; PULSE 65; RESP 12; TEMP 37.2; O2SAT 96; BMI 29.3
--- NOTE | 2024-02-06 10:32 | ED.GENADULT ---
HPI - General Adult General Chief complaint: Overdose Stated complaint: OD,NONE RESP VERB/COMING AROUND,NO NARCAN Time Seen by Provider: 02/06/24 10:24 Source: patient and EMS Mode of arrival: EMS Limitations: no limitations History of Present Illness ED Provider: DR. Inman HPI narrative: 38-year-old male history of polysubstance abuse found at [facility] unresponsive by bystanders, on arrival of 911 patient was sleepy but easily arousable answer question needed no Narcan, in the emergency department patient is a historian admitted to using couple bags of heroin IV. Patient is looking for rehab. No SI, no HI. No sign of trauma. Related Data Home Medications ?Medication ?Instructions ?Recorded ?Confirmed buprenorphine 12 mg-naloxone 3 mg 1 strip sublingual BID 01/11/22 01/23/24 sublingual film dextroamphetamine-amphetamine ER 1 cap PO QAM 01/23/24 01/23/24 20 mg 24hr capsule,extend release gabapentin 300 mg capsule 300 mg PO TID 01/23/24 01/23/24 Previous Rx's ?Medication ?Instructions ?Recorded doxycycline monohydrate 100 mg 100 mg PO BID #14 tabs 01/24/24 tablet Allergies Allergy/AdvReac Type Severity Reaction Status Date / Time azithromycin [From ZITHROMAX] Allergy Unknown HIVES Verified 02/06/24 10:27 amoxicillin [From AUGMENTIN] AdvReac Unknown STOMACH Verified 02/06/24 10:27 PAIN clavulanic acid AdvReac Unknown STOMACH Verified 02/06/24 10:27 [From AUGMENTIN] PAIN morphine AdvReac Unknown Verified 02/06/24 10:27 Review of Systems Review of Systems: All other systems are reviewed and are negative Constitutional: Reports as per HPI and Reports no additional constitutional complaints Eyes: Reports as per HPI and Reports no additional eye complaints Reports system reviewed and no additional complaints, except as documented Cardiovascular: Reports as per HPI and Reports no additional cardiovascular complaints Respiratory: Reports as per HPI and Reports no additional respiratory complaints Gastrointestinal: Reports as per HPI and Reports no additional gastrointestinal complaints Genitourinary: Reports no additional female genitourinary complaints Musculoskeletal: Reports no additional musculoskeletal complaints Skin/Breast: Reports system reviewed and no additional complaints, except as docu Psychiatric: Reports no additional psychiatric complaints Endocrine: Reports no additional endocrine complaints Hematologic/Lymphatic: Reports no additional hematologic/lymphatic complaints Allergic/Immunologic: Reports no additional allergic/immunologic complaints Reports system reviewed and no additional complaints, except as documented and Reports Abnormal speech present [facility] Past Medical History Medical History Bilateral pulmonary infiltrates on chest x-ray Rhabdomyolysis Fever Acute renal failure Cocaine use disorder Social History Social History Household Members: Spouse Housing: Unknown / Unable to assess Do you presently have visiting nurse or other home services: No Unable to assess alcohol history related to: Unable to respond Alcohol intake: current Alcohol intake frequency: 3 or more drinks per day Patient Tobacco Use Status: Tobacco use Unknown Substance Use Type: Crack/Cocaine, Heroin, IV Drugs and Marijuana Advance Directives: No service: No Current occupational status: unemployed Physical Exam ED Vital Signs: Vital Signs - 24 hr 02/06/24 10:22 02/06/24 11:48 Temperature 98.9 F 98.2 F Pulse Rate 65 73 Respiratory Rate 12 17 Blood Pressure 143/91 H 104/68 Pulse Oximetry 96 100 Oxygen Delivery Method Room Air Room Air BMI result Body Mass Index 29.3 Vital signs have been reviewed and appear to be correct. Blood pressure elevated. Heart rate normal. Respiratory rate normal. Temperature normal. Oxygen saturation normal. Appearance: Obtundent but easily arousable. Oriented X3. No acute distress. Head: Normal external exam. Normocephalic. Atraumatic. No Jang signs noted. No raccoon eyes noted Eyes: PERRLA. EOMI. Conjunctiva and sclera normal. Eyelids normal. ENT: TM's Normal. Pharynx normal. Uvula midline. Moist mucous membranes. No trismus noted. No drooling noted. No muffled voice noted. Neck: Normal inspection. Neck supple. FROM. No adenopathy. Thyroid Normal. No meningeal signs. No neck mass noted. CVS: Normal heart rate and rhythm. Heart sound normal. No murmurs noted. Pulses normal throughout. Respiratory: No respiratory distress. Painless inspiration. Breath sounds normal. No wheezes/rales/rhonchi noted. Chest nontender. No accessory muscle usage noted or decreased air movement noted. Abdomen: soft, nontender,Bowel sounds normal in all 4 quadrants. No distention noted. No organomegaly noted. No visible injury noted. Back: No CVA tenderness. Full range of motion noted. Skin: multiple IV galicia in both arms. Extremities: No lower extremity edema. Extremities exhibit normal range of motion. Extremities nontender. Neuro: Oriented X 3. Cranial nerve exam: II-XII are grossly intact No motor deficit. No sensory deficit. Reflexes normal. Course Reevaluation(s) Reevaluation #1: AAO x3 able to ambulate in the emergency department tolerated p.o. intake, admitted to using drugs, patient is refusing recovery team evaluation. No SI, no HI. Time: 15:00 Medical Decision Making Differential Diagnosis Differential Diagnoses: The differential diagnosis associated with the presentation includes ( Substance abuse, drug overdose, SI, intracranial bleed.) Admission/Observation Consideration of admission/observation: Escalation of care including admission/observation considered Chronic Conditions Patient?s care impacted by: Other ( Chronic IV heroin abuse.) Discharge Plan Discharge Clinical Impression: Accidental heroin overdose Patient Disposition: Home, Self-Care Instructions: Polysubstance Abuse (ED) Prescriptions: No Action buprenorphine-naloxone 12-3 mg film 1 strip sublingual BID dextroamphetamine-amphetamine 20 mg capsule,extended release 24hr 1 cap PO QAM gabapentin 300 mg capsule 300 mg PO TID doxycycline monohydrate 100 mg tablet 100 mg PO BID Qty: 14 0RF Print Language: Indian
[2024-02-06 11:48] VITALS: BP 104/68; PULSE 73; RESP 17; TEMP 36.8; O2SAT 100
--- NOTE | 2024-02-06 12:16 | PC.NURSE ---
ASSUMED CARE OF PT, NSR ON MONITOR. RESP RATE 16 BREATHS/MIN, EVEN, NONLABOURED.
--- NOTE | 2024-02-06 13:49 | PC.NURSE ---
PT IS EASILY ROUSED BY NAME, THOUGH REMAINS SOMNOLENT. DOES NOT WANT DETOX SERVICES. DENIES SI. WOULD LIKE HIS TO PICK HIM UP MARGARITA [phone]. REQUESTING FOOD AND DRINK.
[2024-02-06] MEDS: Naloxone HCl Nasal TAKE HOME 4 MG SPRAY 8 MG NOSTRILALT (14:59)
[2024-02-06 17:24] VITALS: BP 125/95; PULSE 84; RESP 16; TEMP 36.6; O2SAT 97
== END 2024-02-06 16:00 | disposition home or self-care (01) ==
PROVIDERS: Emergency Provider Emergency Medicine
DX: T40.1X1A Poisoning by heroin, accidental (unintentional), initial encounter (principal); R40.4 Transient alteration of awareness; Y92.9 Unspecified place or not applicable
CPT/HCPCS: 99283

== ENCOUNTER 2024-02-25 21:21 | Emergency (ER) | payer OTHER, SELFPAY ==
--- NOTE | ~2024-02-25 | XR_ITS ---
EXAMINATION: XR ABDOMEN KUB CLINICAL INDICATION: Constipation COMPARISON: None available. TECHNIQUE: AP view of the abdomen. FINDINGS: Nondilated bowel gas pattern. No intraperitoneal free air. Small volume of stool in colon. Lung bases are clear. Moderate left convex lumbar scoliosis with marked degenerative disc disease at L2-L3. Mild osteoarthritis in the hips, right greater than left. XR/XR KUB IMPRESSION: Nonobstructive bowel gas pattern. Small volume of stool in colon. Electronically signed by: Anil Stokes MD 02/26/2024 12:35 AM EDT
[2024-02-25 21:25] VITALS: BP 150/78; PULSE 78; RESP 18; TEMP 36.6; O2SAT 95; BMI 25.4
[2024-02-25 22:14] LABS: MANUAL DIFF FLAG NO
[2024-02-25 22:15] LABS: Basophils Absolute Auto 0.1 X10*3/uL (0.0-0.2); Basophils Percent Auto 0.6 % (0-2); Eosinophils Absolute Auto 0.2 X10*3/uL (0.0-0.4); Eosinophils Percent Auto 1.9 % (0-4); Hematocrit 33.5 % (42.0-52.0); Hemoglobin 11.5 g/dl (14.0-18.0); Imm Gran Abs Auto 0.02 X10*3/uL (0.00-0.03); Imm Gran Pct Auto 0.2 % (0.0-0.4); Lymphocytes Absolute Auto 2.9 X10*3/uL (1.2-4.9); Lymphocytes Percent Auto 30.4 % (20-40); Mean Corpuscular HGB Conc 34.3 g/dl (31.0-36.0); Mean Corpuscular Hemoglobin 31.4 pg (27.0-33.0); Mean Corpuscular Volume 91.5 fL (80.0-98.0); Mean Platelet Volume 8.9 fL (9.4-12.4); Monocytes Absolute Auto 0.4 X10*3/uL (0.1-1.2); Monocytes Percent Auto 4.5 % (2-11); Neutrophils Percent Auto 62.4 % (45-73); Platelet Count 263 X10*3/uL (160-400); Red Blood Count 3.66 X10*6/uL (4.60-5.80); Red Cell Distribution Width 14.3 % (11.0-16.0); White Blood Count 9.6 X10*3/uL (4.8-10.8)
[2024-02-25 22:28] LABS: Alanine Aminotransferase 17 U/L (0-40); Albumin Level 3.9 g/dL (3.5-5.0); Alkaline Phosphatase 62 U/L (39-117); Anion Gap 12 (12-20); Aspartate Amino Transferase 22 U/L (5-37); Bilirubin Total 0.4 mg/dL (0.0-1.0); Blood Urea Nitrogen 17 mg/dL (9-16); Calcium 8.6 mg/dL (8.4-10.2); Carbon Dioxide 25 mmol/L (22-29); Chloride 106 mmol/L (96-108); Creatinine Clr Calc Pharmacy 86.5; Estimated Glomerular Filt Rate > 60; Glucose Random 106 mg/dL (60-115); Potassium 3.3 mmol/L (3.3-5.1); Sodium 140 mmol/L (135-145); Total Protein 6.6 g/dL (6.5-8.0)
[2024-02-26 01:09] VITALS: BP 125/66; PULSE 61; RESP 16; TEMP 36.6; O2SAT 100
[2024-02-26 02:46] LABS: Appearance Urine Cloudy; Color Urine Dark Yellow; Glucose Urine UA Negative (Negative); Leukocyte Esterase Urine Negative (Negative); Nitrite Urine Negative (Negative); PH 5.5 (5.0-9.0); Specific Gravity - Urine >= 1.030 (1.005-1.025); Urine Blood Negative (Negative); Urine Ketones Negative (Negative); Urine Protein Trace mg/dL (Neg-Trace)
[2024-02-26 02:57] LABS: Amphetamine Screen Urine Not Detected (Not Detect); Barbiturates, Urine Not Detected (Not Detect); Benzodiazepines Screen Urine Not Detected (Not Detect); Buprenorphine Scr Not Detected (Not Detect); Cannabinoid Screen Urine Not Detected (Not Detect); Cocaine Screen Urine POSITIVE (Not Detect); Fentanyl, urine POSITIVE (Not Detect); Methadone Screen, Urine Positive (Not Detect); Opiate Screen Urine POSITIVE (Not Detect); Oxycodone Screen Urine Not Detected (Not Detect); Phencyclidine Screen Urine Not Detected (Not Detect)
--- NOTE | 2024-02-26 03:28 | ED.GENADULT ---
HPI - General Adult General Chief complaint: General Medical Stated complaint: sore bottom/can't really sit Time Seen by Provider: 02/25/24 22:46 Source: patient and family Mode of arrival: ambulatory Limitations: altered mental status History of Present Illness ED Provider: Dr. Johnson HPI narrative: Patient brought in by family, he is a polysubstance abuser, who has been having constipation, now presents with rectal prolapse Onset (ago): hour(s) Related Data Home Medications ?Medication ?Instructions ?Recorded ?Confirmed buprenorphine 12 mg-naloxone 3 mg 1 strip sublingual BID 01/11/22 01/23/24 sublingual film dextroamphetamine-amphetamine ER 1 cap PO QAM 01/23/24 01/23/24 20 mg 24hr capsule,extend release gabapentin 300 mg capsule 300 mg PO TID 01/23/24 01/23/24 Previous Rx's ?Medication ?Instructions ?Recorded doxycycline monohydrate 100 mg 100 mg PO BID #14 tabs 01/24/24 tablet docusate sodium 100 mg capsule 100 mg PO BID #30 caps 02/26/24 (Colace) Allergies Allergy/AdvReac Type Severity Reaction Status Date / Time azithromycin [From ZITHROMAX] Allergy Unknown HIVES Verified 02/25/24 21:25 amoxicillin [From AUGMENTIN] AdvReac Unknown STOMACH Verified 02/25/24 21:25 PAIN clavulanic acid AdvReac Unknown STOMACH Verified 02/25/24 21:25 [From AUGMENTIN] PAIN morphine AdvReac Unknown Verified 02/25/24 21:25 Review of Systems Review of Systems: Yes all other systems are reviewed and are negative Neurologic: Denies Sensory deficit (Neuro) PMFSH Past Medical History Medical History Bilateral pulmonary infiltrates on chest x-ray Rhabdomyolysis Fever Acute renal failure Cocaine use disorder Social History Social History Household Members: Spouse Housing: Unknown / Unable to assess Do you presently have visiting nurse or other home services: No Unable to assess alcohol history related to: Unable to respond Alcohol intake: current Alcohol intake frequency: 3 or more drinks per day Patient Tobacco Use Status: Tobacco use Unknown Substance Use Type: Crack/Cocaine, Heroin, IV Drugs and Marijuana Advance Directives: No Advance Directives Information Provided: No service: No Current occupational status: unemployed Physical Exam ED Vital Signs: Vital Signs - 24 hr 02/25/24 21:25 02/26/24 01:09 Temperature 97.9 F 97.8 F Pulse Rate 78 61 Respiratory Rate 18 16 Blood Pressure 150/78 H 125/66 Pulse Oximetry 95 100 Oxygen Delivery Method Room Air Room Air BMI result Body Mass Index 25.4 Const Other: chronically ill male looking older than stated age. Nutritional Appearance: average body habitus Orientation/consciousness: oriented to person Limitations: no limitations HENMT Head: Yes normal to inspection Ears: external ears normal General nose exam: Normal external nose present Mouth: Normal oral and palatal mucosa present and oropharynx normal Throat: Yes posterior oropharynx normal Eyes General: appearance normal, both eyes and all related structures Neck Neck: Yes normal visual inspection Chest Chest palpation & inspection: normal inspection of the chest Resp Auscultation: clear to auscultation bilaterally Cardio Jugular venous distension: no JVD Rate: regular rate Rhythm: regular rhythm Heart sounds: S1 normal heart sound present and S2 normal heart sound present GI Inspection: Yes normal to inspection Palpation (GI): Soft to palpation, nontender and No hepatosplenomegaly present Auscultation: normal bowel sounds Other: large rectal prolapse Skin General skin exam: no rashes or lesions noted Neuro General: oriented to person Cranial nerves: Yes CN's II-XII intact bilaterally Motor exam (neuro): 5/5 motor strength present throughout Sensory Exam: No Sensory deficit (Neuro) Extrem General: Yes normal to inspection Psych Appearance: grossly normal Course Reevaluation(s) Reevaluation #1: procedure: manual reduction of rectal prolapse Time: 03:36 Reevaluation #2: Patient with polysubstance abuse will dc home on colace for rectal prolapse Time: 03:36 Medical Decision Making Differential Diagnosis Differential Diagnoses: The differential diagnosis associated with the presentation includes (rectal prolapse, polysubstance abuse) Admission/Observation Consideration of admission/observation: Escalation of care including admission/observation considered (upon arrival patient considered for admission) Lab Data urine positive for methadone, opiates, fentanyl and cocaine 02/25/24 22:10 02/25/24 22:10 Labs: Lab Results 02/25/24 02/26/24 Range/Units 22:10 02:41 WBC 9.6 (4.8-10.8) X10*3/uL RBC 3.66 L (4.60-5.80) X10*6/uL Hgb 11.5 L (14.0-18.0) g/dl Hct 33.5 L (42.0-52.0) % MCV 91.5 (80.0-98.0) fL MCH 31.4 (27.0-33.0) pg MCHC 34.3 (31.0-36.0) g/dl RDW 14.3 (11.0-16.0) % Plt Count 263 (160-400) X10*3/uL MPV 8.9 L (9.4-12.4) fL Immature Gran % (Auto) 0.2 (0.0-0.4) % Neut % (Auto) 62.4 (45-73) % Lymph % (Auto) 30.4 (20-40) % [place] % (Auto) 4.5 (2-11) % Eos % (Auto) 1.9 (0-4) % Baso % (Auto) 0.6 (0-2) % Lymph # (Auto) 2.9 (1.2-4.9) X10*3/uL [place] # (Auto) 0.4 (0.1-1.2) X10*3/uL Eos # (Auto) 0.2 (0.0-0.4) X10*3/uL Baso # (Auto) 0.1 (0.0-0.2) X10*3/uL Abs Immat Gran (auto) 0.02 (0.00-0.03) X10*3/uL Absolute Neuts (auto) 6.0 (2.0-8.3) x10*3/uL Absolute Nucleated RBC 0.000 (0.0-0.012) X10*3/uL Nucleated RBC % (auto) 0.0 (0.0-0.2) /100WBC Sodium 140 (135-145) mmol/L Potassium 3.3 (3.3-5.1) mmol/L Chloride 106 (96-108) mmol/L Carbon Dioxide 25 (22-29) mmol/L Anion Gap 12 (12-20) BUN 17 H (9-16) mg/dL Creatinine 0.81 (0.5-1.4) mg/dL Estim Creat Clear Calc 86.5 Estimated GFR > 60 Random Glucose 106 (60-115) mg/dL Calcium 8.6 D (8.4-10.2) mg/dL Total Bilirubin 0.4 (0.0-1.0) mg/dL AST 22 (5-37) U/L ALT 17 (0-40) U/L Alkaline Phosphatase 62 (39-117) U/L Total Protein 6.6 (6.5-8.0) g/dL Albumin 3.9 (3.5-5.0) g/dL Urine Color Dark Yellow Urine Appearance Cloudy Urine pH 5.5 (5.0-9.0) Ur Specific [place] >= 1.030 H (1.005-1.025) Urine Protein Trace (Neg-Trace) mg/dL Urine Glucose (UA) Negative (Negative) mg/dL Urine Ketones Negative (Negative) mg/dL Urine Blood Negative (Negative) Urine Nitrite Negative (Negative) Ur Leukocyte Esterase Negative (Negative) Urine Opiates Screen POSITIVE H (Not Detect) Ur Buprenorphine Scrn Not Detected (Not Detect) ng/mL Ur Oxycodone Screen Not Detected (Not Detect) ng/mL Urine Methadone Screen Positive H (Not Detect) ng/mL Urine Fentanyl Screen POSITIVE H (Not Detect) Ur Barbiturates Screen Not Detected (Not Detect) Ur Phencyclidine Scrn Not Detected (Not Detect) Ur Amphetamines Screen Not Detected (Not Detect) U Benzodiazepines Scrn Not Detected (Not Detect) Urine Cocaine Screen POSITIVE H (Not Detect) U Marijuana (THC) Screen Not Detected (Not Detect) Independent Interpretation I performed an independent interpretation of an: Plain X-Ray (kub shows some stool, no severe constipation) Independent Historian Clinical information obtained from an independent historian. History obtained from or confirmed by: Friend Prescription Management I considered prescription management with: Antibiotic (no bacterial infection appreciated) Chronic Conditions Patient?s care impacted by: Other (drug abuse) Social Determinants Patient?s care significantly limited by Social Determinants of Health including: Alcoholism and drug addiction in family Discharge Plan Discharge Clinical Impression: Complete rectal prolapse, Polysubstance abuse Patient Disposition: Home, Self-Care Instructions: Polysubstance Abuse (ED), Rectal Prolapse (ED) Prescriptions: New docusate sodium [Colace] 100 mg capsule 100 mg PO BID Qty: 30 0RF No Action buprenorphine-naloxone 12-3 mg film 1 strip sublingual BID dextroamphetamine-amphetamine 20 mg capsule,extended release 24hr 1 cap PO QAM gabapentin 300 mg capsule 300 mg PO TID doxycycline monohydrate 100 mg tablet 100 mg PO BID Qty: 14 0RF Referrals: Chao Kamara MD [Physician] - 5 days Print Language: Cypriot
[2024-02-26 04:09] VITALS: BP 150/85; PULSE 55; RESP 16; TEMP 37; O2SAT 98
== END 2024-02-26 04:11 | disposition home or self-care (01) ==
PROVIDERS: Emergency Provider Emergency Medicine
DX: K62.3 Rectal prolapse (principal); K59.00 Constipation, unspecified; F19.10 Other psychoactive substance abuse, uncomplicated; Z79.899 Other long term (current) drug therapy
CPT/HCPCS: 36415; 51701; 51798; 74018; 80053; 80307; 81003; 85025; 99283; 99284